=== PATIENT | female | born 1940 | race Caucasian/White ===

== ENCOUNTER 2023-08-13 11:41 | Outpatient (OUT) | payer MEDICARE, SELFPAY ==
--- NOTE | 2023-08-13 11:52 | XR_ITS ---
[facility] [place] [id number] Patient Name: JESSICA SANCHEZ MRN: [id number] date: 1940 Sex: F Assigned Patient Location: [facility] Current Patient Location: [facility] Accession/Order Number: [id number] Exam Date: 08/13/2023 12:01 Report Date: 08/13/2023 18:20 At the request of: MARYAM ALEJANDRA Procedure: XR shoulder LB min 2V EXAM: XR shoulder LB min 2V HISTORY: Nevus D22.9 COMPARISON: None. TECHNIQUE: 3 views of the right shoulder and 3 views of the left shoulder were obtained. FINDINGS: There is a background of osteopenia. There is no radiographic evidence of acute fracture or subluxation. Bilateral joint space narrowing with marginal spurring is seen at the acromioclavicular and glenohumeral joints. There is a background of emphysematous changes in the lungs. XR/XR shoulder LB min 2V IMPRESSION: 1. No acute fracture or subluxation. 2. 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 3. Background of emphysematous changes. Electronically authenticated by: ECTOR BOONE Date: 08/13/2023 18:20
== END 2023-08-13 11:42 | disposition home or self-care (01) ==
LOC: RAD 11:45
PROVIDERS: PCP Family Medicine; Visit Provider Family Medicine
DX: D22.9 Melanocytic nevi, unspecified (principal)
CPT/HCPCS: 73030

== ENCOUNTER 2023-08-21 05:34 | Emergency (ER) | payer MEDICARE, SELFPAY ==
[2023-08-21 05:39] VITALS: BP 131/96; PULSE 94; RESP 16; TEMP 36.8; O2SAT 96; BMI 24.6
--- NOTE | 2023-08-21 05:56 | ED_ITS ---
HPI - General Adult General Chief complaint: Weakness Stated complaint: body pain Time Seen by Provider: 08/21/23 05:43 Source: patient Mode of arrival: walk-in History of Present Illness HPI narrative: 82-year-old female presents for generalized body pains. She hasn't had a fever or cough and it's been continuous and started on approximately August 11, about ten days ago. There was no injury. It started in her arms and now her whole body hurts. She saw her doctor who put on diclofenac but it didn't really help and she stopped it and she started taking ibuprofen again. She had not been on any new medications before this started. Related Data Home Medications Medication Instructions Recorded Confirmed diclofenac sodium 75 mg 75 mg PO BID PRN pain 08/21/23 08/21/23 tablet,delayed release Previous Rx's Medication Instructions Recorded acetaminophen 300 mg-codeine 30 mg 1 tab PO Q6H PRN pain 3 days #10 08/21/23 tablet tabs Allergies Allergy/AdvReac Type Severity Reaction Status Date / Time No Known Drug Allergies Allergy Verified 08/21/23 05:44 Review of Systems ROS Narrative A ten point review of systems is negative except as noted above. [facility] Medical History (Updated 08/21/23 @ 06:48 by Sunday Wu MD) Body aches ?R52 - Pain, unspecified (ICD-10) Exam Narrative Exam Narrative: Nurses note and vital signs reviewed and patient is not hypoxic. General: The patient appears well and in no apparent distress. Patient is resting comfortably on cart. Skin: Warm, dry, no pallor noted. There is no rash noted. Head: Normocephalic, atraumatic Eye: Normal conjunctiva, no drainage Ears, Nose, Mouth, and Throat: oral mucosa is moist. Nares patent. Mouth without vesicles. Ear canals patent. Tm's without Erythema Cardiovascular: Regular Rate and Rhythm Respiratory: Patient is in no distress, no accessory muscle use, lungs are clear to auscultation, no wheezing, rales or rhonchi Back: non-tender GI: soft and nontender Musculoskeletal: all joints have full range of motion Neurological: A&O, normal speech Psychiatric: Cooperative Constitutional Vital Signs, click to edit/add: Last Vital Signs Temp 98.3 F 08/21/23 05:39 Pulse 94 H 08/21/23 05:39 Resp 16 08/21/23 05:39 BP 131/96 H 08/21/23 05:39 Pulse Ox 96 08/21/23 05:39 O2 Del Method Room Air 08/21/23 06:03 Course Vital Signs Vital signs: Vital Signs Temperature 98.3 F 08/21/23 05:39 Pulse Rate 94 H 08/21/23 05:39 Respiratory Rate 16 08/21/23 05:39 Blood Pressure 131/96 H 08/21/23 05:39 Pulse Oximetry 96 08/21/23 05:39 Oxygen Delivery Method Room Air 08/21/23 05:39 Temperature 98.3 F 08/21/23 05:39 Pulse Rate 94 H 08/21/23 05:39 Respiratory Rate 16 08/21/23 05:39 Blood Pressure 131/96 H 08/21/23 05:39 Pulse Oximetry 96 08/21/23 05:39 Oxygen Delivery Method Room Air 08/21/23 06:03 Medical Decision Making MDM Narrative Medical decision making narrative: Laboratory analysis is negative and she'll be treated symptomatically. Treatment diagnosis and follow-up were discussed with the patient. Differential Diagnosis Differential Diagnosis: myalgia, arthralgia Lab Data Lab results reviewed: Yes I reviewed the patient's lab results Labs: Lab Results 08/21/23 Range/Units 06:09 WBC 9.9 (4.0-11.0) 10^3/uL RBC 4.51 (4.20-5.40) 10^6/uL Hgb 12.9 (12.0-16.0) g/dL Hct 42.3 (36.0-48.0) % MCV 93.8 (81.0-99.0) fL MCH 28.6 (26.7-34.0) pg MCHC 30.5 (29.9-35.2) g/dL RDW 14.1 (11.0-15.0) % Plt Count 343 (150-450) 10^3/uL MPV 10.2 (9.5-13.5) fL Neut % (Auto) 64.5 (43.0-75.0) % Lymph % (Auto) 24.8 (20.5-60.0) % [place] % (Auto) 7.7 (1.7-12.0) % Eos % (Auto) 2.0 (0.9-7.0) % Baso % (Auto) 0.6 (0.2-2.0) % Neut # (Auto) 6.4 (1.4-6.5) 10^3/uL Lymph # (Auto) 2.5 (1.2-3.8) 10^3/uL [place] # (Auto) 0.8 (0.3-0.8) 10^3/uL Eos # (Auto) 0.2 (0.0-0.7) 10^3/uL Baso # (Auto) 0.1 (0.0-0.1) 10^3/uL Abs Immat Gran (auto) 0.04 H (0.00-0.03) 10^3/uL Imm/Tot Granulo (auto) 0.4 (0.0-0.5) % Sodium 139 (136-145) mmol/L Potassium 4.1 (3.5-5.1) mmol/L Chloride 104 (98-107) mmol/L Carbon Dioxide 26.3 (21.0-32.0) mmol/L Anion Gap 12.8 BUN 16.0 (7.0-18.0) mg/dL Creatinine 0.76 (0.55-1.02) mg/dL Est GFR ( Amer) >60 (>=60) Est GFR (Non-Af Amer) >60 (>=60) BUN/Creatinine Ratio 21.1 Glucose 135 H (74-106) mg/dL Calcium 9.2 (8.5-10.1) mg/dL Myoglobin 39 (9-82) ng/mL Discharge Plan Discharge Chief Complaint: Weakness Clinical Impression: Myalgia Patient Disposition: Home, Self-Care Time of Disposition Decision: 06:48 Condition: Good Mode of Transportation: Private Vehicle Prescriptions / Home Meds: New acetaminophen-codeine 300-30 mg tablet 1 tab PO Q6H PRN (Reason: pain) 3 Days Qty: 10 0RF No Action diclofenac sodium 75 mg tablet,delayed release (DR/EC) 75 mg PO BID PRN (Reason: pain) Instructions: Musculoskeletal Pain (ED) Stand Alone Forms: Portal Instructions Referrals: Barry Valerio MD [Primary Care Provider] - 1 week
--- NOTE | 2023-08-21 06:03 | PC.NURSE ---
pt c/o all over body pain, reports that DR Valerio has been working with her on this but pain is getting worse and is unable to wait until appt on with DR Valerio. Pt ambulated to room 1 in ER slow and steady this moring.
[2023-08-21 06:21] LABS: Basophils Absolute Auto 0.1 10^3/uL (0.0-0.1); Basophils Percent Auto 0.6 % (0.2-2.0); Eosinophils Absolute Auto 0.2 10^3/uL (0.0-0.7); Hematocrit 42.3 % (36.0-48.0); Hemoglobin 12.9 g/dL (12.0-16.0); Immature Granulocytes Abs Auto 0.04 10^3/uL (0.00-0.03); Immature Granulocytes Pct Auto 0.4 % (0.0-0.5); Lymphocytes Absolute Auto 2.5 10^3/uL (1.2-3.8); Lymphocytes Percent Auto 24.8 % (20.5-60.0); Mean Corpuscular HGB Conc 30.5 g/dL (29.9-35.2); Mean Corpuscular Hemoglobin 28.6 pg (26.7-34.0); Mean Corpuscular Volume 93.8 fL (81.0-99.0); Mean Platelet Volume 10.2 fL (9.5-13.5); Monocytes Absolute Auto 0.8 10^3/uL (0.3-0.8); Monocytes Percent Auto 7.7 % (1.7-12.0); Neutrophils Absolute Auto 6.4 10^3/uL (1.4-6.5); Neutrophils Percent Auto 64.5 % (43.0-75.0); Platelet Count 343 10^3/uL (150-450); Red Blood Count 4.51 10^6/uL (4.20-5.40); Red Cell Distribution Width 14.1 % (11.0-15.0); White Blood Count 9.9 10^3/uL (4.0-11.0)
[2023-08-21 06:37] LABS: Anion Gap 12.8; BUN Creatinine Ratio 21.1; Calcium 9.2 mg/dL (8.5-10.1); Carbon Dioxide 26.3 mmol/L (21.0-32.0); Chloride 104 mmol/L (98-107); Estimated GFR (African America >60 (>=60); Estimated GFR (Non-African Ame >60 (>=60); Glucose 135 mg/dL (74-106); Myoglobin 39 ng/mL (9-82); Potassium 4.1 mmol/L (3.5-5.1); Sodium 139 mmol/L (136-145)
[2023-08-21] MEDS: KETOROLAC TROMETHAMINE 60 MG/2 ML VIAL IM (06:54)
== END 2023-08-21 07:02 | disposition home or self-care (01) ==
PROVIDERS: Emergency Provider Emergency Medicine; PCP Family Medicine
DX: M79.10 Myalgia, unspecified site (principal)
CPT/HCPCS: 36415; 80048; 83874; 85025; 96372; 99284

== ENCOUNTER 2023-10-27 08:21 | Emergency (ER) | payer MEDICARE, SELFPAY ==
--- OUTSIDE RECORDS SUMMARY | 2023-10-27 08:26 | XMS_ITS | CCD ---
Author Name Unknown Address [address] [place] [address] Organization [facility] Care Team Providers Care Validation Manager Name Role Phone [place] ., DR FRANCISCO Primary Care Unavailable RAYSHAWN, DR RM Consulting Unavailable RAYSHAWN, DR RM Admitting Unavailable RAYSHAWN, DR RM Attending Unavailable MCRAEWALTER Consulting Unavailable HOY ., DR FRANCISCO Admitting Unavailable HOY ., DR FRANCISCO Attending Unavailable HOY ., DR FRANCISCO Primary Care Unavailable HOY ., DR FRANCISCO Consulting Unavailable ZIEBABBI, DR SAGE Benz Consulting Unavailable HOY ., DR FRANCISCO Admitting Unavailable HOY ., DR FRANCISCO Attending Unavailable HOY ., DR FRANCISCO Primary Care Unavailable HOY ., DR FRANCISCO Consulting Unavailable ZIEBER, DR SAGE Benz Consulting Unavailable Allergies Allergy Classification Reported Allergen(s) Allergy Type Date of Onset Reaction(s) Facility (1 source) Caffeine Drug Allergy 11-19-2016 [facility] Repository Problems Active Problems Problem Classification Problem Date Documented Date Episodic/Chronic Abdominal pain (1 source) Left lower quadrant pain; Translations: [LEFT LOWER QUADRANT PAIN] Onset: 11-16-2022 Episodic Osteoarthritis (2 sources) Bilateral primary osteoarthritis of hip; Translations: [Primary osteoarthritis, right wrist] Onset: 08-23-2022 Chronic Other non-traumatic joint disorders (4 sources) Pain in left hip; Translations: [PAIN IN LEFT HIP] Onset: 11-08-2022 Episodic Sprains and strains (1 source) Strain of muscle, fascia and tendon of left hip, initial encounter; Translations: [STRAIN MUSC FASC TENDON LT HIP INIT] Onset: 11-16-2022 Episodic Unclassified (3 sources) LOW BACK PAIN, UNSPECIFIED; Translations: [LOW BACK PAIN, UNSPECIFIED] Onset: 11-22-2022 Past or Other Problems Problem Classification Problem Date Documented Da te Episodic/Chronic Cancer of breast (1 source) Personal history of malignant neoplasm of breast; Translations: [PERS HX MALIGNANT NEOPLASM BREAST] Onset: 08-23-2022 Episodic Other circulatory disease (1 source) Personal history of transient ischemic attack (TIA), and cerebral infarction without residual deficits; Translations: [PERS HX TIA AND CI NO RESID DEFICIT] Onset: 08-23-2022 Episodic Other non-traumatic joint disorders (3 sources) Pain in right wrist; Translations: [PAIN IN RIGHT WRIST] Onset: 08-22-2022 Episodic Unclassified (1 source) LOW BACK PAIN, UNSPECIFIED; Translations: [LOW BACK PAIN, UNSPECIFIED] Onset: 11-19-2022 Results Test Name Value Interpretation Reference Range Facil ity MRI LSPINE WO CONon 11-20-19 MRI LSPINE WO CON EXAMINATION: MRI LSPINE WO CON HISTORY: Low back pain COMPARISON: No relevant comparison available. TECHNIQUE: A variety of imaging planes and parameters were utilized for visualization of suspected pathology. FINDINGS: For the purposes of numbering, sagittal T2 image # 8 extends from the T10-T11 vertebral body superiorly to the S3 level inferiorly. PARASPINAL AREA: Normal with no visible mass. BONES: Mild edema within within superior endplate of L2 suspicious for mild acute compression fracture. Mild loss of height of L3 without marrow edema suggesting remote compression fracture. Mild grade 1 retrolisthesis of T12-L1. Minimal grade 1 anterior listhesis of L4 on 5. CORD/CAUDA EQUINA: Normal caliber, contour, and signal intensity. DISC LEVELS: 12-L1: T11 and T12 mild diffuse disc bulging and mild facet arthropathy. Causing mild central canal and mild bilateral foramen narrowing. T12-L1 moderate diffuse disc bulging causing moderate central canal and bilateral foramen narrowing. Mild degenerative facet arthropathy. L1-L2: Mild foramen narrowing bilaterally without significant central canal narrowing. Mild diffuse disc bulging without disc at reduction. Mild degenerative facet arthropathy bilaterally. L2-L3: Mild foramen narrowing bilaterally without significant central canal narrowing. Mild diffuse disc bulging without disc height reduction. Mild degenerative facet arthropathy, right greater than left. L3-L4: Mild central canal and bilateral foramen narrowing. Mild diffuse disc bulging without disc height reduction. Moderate degenerative facet arthropathy bilaterally. L4-L5: Mild central canal and bilateral foramen narrowing. Minimal grade 1 anterolisthesis of L4-L5. Mild diffuse disc bulging and mild disc height reduction. Moderate degenerative facet arthropathy bilaterally. Possible mild impingement of the descending L5 nerve roots bilaterally between the mildly bulging disc and hypertrophied facet joints. L5-S1: Moderate foramen narrowing bilaterally without significant central canal narrowing. Moderate diffuse disc bulging and moderate disc height reduction. Marked degenerative facet arthropathy bilaterally. IMPRESSION: 1. Multilevel mild to moderate degenerative changes, greatest at L4-L5 and L5-S1 which may contribute to patient's symptoms. 2. Suspect acute to subacute mild compression fracture involving superior endplate of L2. Remote mild compression fracture of L3. Electronically authenticated by: SAGE LOPEZ Date: 2022-11-19 09:58 Normal [facility] XR ABD FLAT UP_PA Julita 11-08 XR ABD FLAT UP_PA CH EXAMINATION: XR ABD FLAT UP_PA CH HISTORY: Left lower quadrant pain , constipation COMPARISON: No relevant comparison available. FINDINGS: LUNGS: Hyperexpanded lungs. Mild haziness and stranding within medial left lung base. MEDIASTINUM: Prominent ascending and descending thoracic aorta. BOWEL GAS PATTERN: Non-obstructed. FREE AIR: None. CALCIFICATIONS: None significant. BONES: No fracture or visible bone lesion. OTHER: Negative. IMPRESSION: 1. Hyperexpanded lungs suggestive COPD. Suspect mild atelectasis or infiltrates within medial left lung base. 2. 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 3. Normal bowel gas pattern. No obstruction. Moderate stool burden. Electronically authenticated by: SAGE LOPEZ Date: 2022-11-08 12:23 Normal [facility] XR LSPINE MIN 4 VIEWSon 10-24 XR LSPINE MIN 4 VIEWS EXAMINATION: XR LSPINE MIN 4 VIEWS HISTORY: Pain of left hip joint ; chronic back and hip pain COMPARISON: XR L-spine 07/14/2019 FINDINGS: BONES: Mild anterior wedging of L3 vertebral body. Mild grade 1 retrolisthesis of L1 on 2. Moderate degenerative facet arthropathy L3-4 through L5-S1. DISC SPACES: Moderate narrowing L4-5, L5-S1. PARASPINOUS: Negative. No paraspinous abnormality is seen. OTHER: Negative. IMPRESSION: 1. L3 mild compression fracture; progressed since 07/14/2019. 2. Multilevel-marked moderate degenerative changes of lumbar spine; grossly stable. Electronically authenticated by: SAGE LOPEZ Date: 2022-11-08 12:21 Normal [facility] XR WRIST RT MIN 3 Von 2021 XR WRIST RT MIN 3 V EXAM: XR WRIST RT MIN 3 V HISTORY: Wrist joint pain COMPARISON: None. TECHNIQUE: 3 views of the right wrist. FINDINGS: Bones are osteopenic. The distal radius and ulna appear preserved. Metacarpal alignment appears maintained. Soft tissue calcifications are seen at the ulnocarpal joint suggesting CPPD. There is prominent joint space narrowing and marginal spur at the thumb CMC joint and to a lesser extent the triscaphe joint. Mild soft tissue swelling of the wrist. No radiopaque foreign bodies are identified. IMPRESSION: 1. Soft tissue swelling. No acute fracture identified. 2. Prominent osteoarthritis most pronounced at the thumb CMC joint. 3. CPPD. Electronically authenticated by: WALTER MCRAE Date: 2022-08-22 11:25 Normal [facility] Encounters Encounter Date Encounter Type Care Provider Facility Start: 11-19-2022 End: 11-20-[address] MARYAM ALEJANDRA . Facility: Start: 11-08-2022 End: 11-09-[address] MARYAM ALEJANDRA . Facility: Start: 08-22-2022 End: 08-22-[address] MARYAM ALEJANDRA . Facility: Payers Date Payer Category Payer Medicare [id number] 1958 Unknown [id number] 1940 Unknown [id number] [id number] [id number] 1940 Unknown [id number] [id number] [id number] 1940 Unknown [id number] [id number] [id number] Clinical Note 11-08-2022 Note Date & Type Note Facility 11-08-2022 Note PROCEDURE: XR HIPS B IL 5V W PELVIS HISTORY: Bilateral hip joint pain COMPARISON: None. FINDINGS: BONES:Small degenerative osteophytes along the superior rim of the acetabulum and articular margins of the femoral heads. No significant joint space narrowing. No fracture, dislocation, or bone lesion. SOFT TISSUES:No visible soft tissue swelling. EFFUSION:None visible. OTHER: Negative. IMPRESSION: 1. Mild degenerative joint disease of the hips bilaterally. Electronically authenticated by: SAGE LOPEZ Date: 2022-11-08 12:19 [facility] Summary Purpose Family History No Family History Records Found Advance Directives No Advanced Directives Records Found Additional Source Comments INFORMATION SOURCE (unrecogn ized section and content) DATE CREATED AUTHOR 11/27/2022 [facility] FOR RECORDS PERTAINING TO PATIENTS WHO ARE OR HAVE BEEN ENROLLED IN A CHEMICAL DEPENDENCY/SUBSTANCEABUSE PROGRAM, SOME INFORMATION MAY BE OMITTED. This clinical summary was aggregated from multiple sources. Caution should be exercised in using it in the provision of clinical care. This summary normalizes information from multiple sources, and as a consequence, information in this document may materially change the coding, format and clinical context of patient data. In addition, data may be omitted in some cases. CLINICAL DECISIONS SHOULD BE BASED ON THE PRIMARY CLINICAL RECORDS. [employer] [facility]. provides no warranty or guarantee of the accuracy or completeness of information in this document.
[2023-10-27 08:33] VITALS: BP 159/98; PULSE 101; RESP 15; TEMP 36.6; O2SAT 98; BMI 21.6
--- NOTE | 2023-10-27 08:53 | ED.MEDCLEAR1 ---
HPI - Medical Clearance General Chief complaint: Medical Clearance Stated complaint: PAIN ALL OVER Time Seen by Provider: 10/27/23 08:46 Source: patient and family Mode of arrival: walk-in Limitations: no limitations History of Present Illness HPI Narrative: This patient is here complaining of multiple aches and pains but specifically in her right biceps and shoulder area as well as her left hand. Then she tells me that her whole body hurts especially in her hips especially when she walks. She is under the care of a local primary doctor and has been on prednisone. She finished her prescription and ran out several days ago and has not gotten a refill yet. Now over the last couple days since she stopped taking her prednisone she is getting much worse. She does not know if she has had any type of SERJIO or rheumatology lab test done. She has not seen a director instrumentation. She does not have any pain in her knees ankles or feet. Most of pain is in her left hand wrist and right biceps area. Related Information Home Medications Medication Instructions Recorded Confirmed ibuprofen 200 mg PO PRN pain (scale score 10/27/23 4-6) Previous Rx's Medication Instructions Recorded acetaminophen 300 mg-codeine 30 mg 1 tab PO Q6H PRN pain 3 days #10 08/21/23 tablet tabs Allergies Allergy/AdvReac Type Severity Reaction Status Date / Time No Known Drug Allergies Allergy Verified 08/21/23 05:44 [facility] Medical History (Updated 10/27/23 @ 09:46 by Nic Hinton MD) Body aches ?R52 - Pain, unspecified (ICD-10) Exam Narrative Exam Narrative: Patient's vital signs are noted. She does not appear toxic or ill but does have discomfort. Again most of her discomfort is over in the right lower shoulder mid biceps area and also her left hand. Skin is warm and dry there is no evidence of pallor rash or vesicles. Patient has marked discomfort at elevation above her right shoulder. Does have some tenderness over the anterior joint. Also has discomfort over her right biceps area but there is no edema, lymphangitis and cellulitis. Her pulses to the distal extremity are normal I do not see evidence of vascular ischemia. She does not have any discomfort with passive or active range of motion of the elbow or the wrist. This is on the right side. On her left side she has some swelling and redness and classic osteoarthritic type findings of her MCP and PIP joints. Does not have any muscle aches and pains on the entire left upper extremity. Pulses are normal. Her lower extremities do not have any muscle pain or joint pain to the knee and ankle or the foot. She has no respiratory complaints no chest pain shortness of breath. Constitutional Vital Signs, click to edit/add: Last Vital Signs Temp 98 F 10/27/23 08:33 Pulse 101 H 10/27/23 08:33 Resp 15 10/27/23 08:33 BP 159/98 H 10/27/23 08:33 Pulse Ox 98 10/27/23 08:33 O2 Del Method Room Air 10/27/23 08:33 Course Vital Signs Vital signs: Vital Signs Temperature 98 F 10/27/23 08:33 Pulse Rate 101 H 10/27/23 08:33 Respiratory Rate 15 10/27/23 08:33 Blood Pressure 159/98 H 10/27/23 08:33 Pulse Oximetry 98 10/27/23 08:33 Oxygen Delivery Method Room Air 10/27/23 08:33 Temperature 98 F 10/27/23 08:33 Pulse Rate 101 H 10/27/23 08:33 Respiratory Rate 15 10/27/23 08:33 Blood Pressure 159/98 H 10/27/23 08:33 Pulse Oximetry 98 10/27/23 08:33 Oxygen Delivery Method Room Air 10/27/23 08:33 MDM - Medical Clearance MDM Narrative Medical decision making narrative: I have reviewed this patient's chart and she really has not had any inflammatory markers done. Her symptoms are rather complex and may involve several diagnoses. Her arthritic pain in her left wrist weeks suggest an inflammatory process and then her right shoulder discomfort and into the biceps might be consistent with a rotator cuff injury as she really does not have joint pain on that right side. The fact is, after stopping her prednisone her symptoms of gotten much worse. I have done some screening lab and in fact her sedimentation rate CRP are both elevated. SERJIO profile will be done. Recommendation at this time will to be start a burst of the steroids titrate back down to 10 mg a day Lab Data Labs: Lab Results 10/27/23 Range/Units 09:13 WBC 9.4 (4.0-11.0) 10^3/uL RBC 4.69 (4.20-5.40) 10^6/uL Hgb 13.5 (12.0-16.0) g/dL Hct 43.4 (36.0-48.0) % MCV 92.5 (81.0-99.0) fL MCH 28.8 (26.7-34.0) pg MCHC 31.1 (29.9-35.2) g/dL RDW 16.0 H (11.0-15.0) % Plt Count 363 (150-450) 10^3/uL MPV 9.0 L (9.5-13.5) fL Neut % (Auto) 73.6 (43.0-75.0) % Lymph % (Auto) 15.2 L (20.5-60.0) % [place] % (Auto) 7.2 (1.7-12.0) % Eos % (Auto) 2.4 (0.9-7.0) % Baso % (Auto) 0.6 (0.2-2.0) % Neut # (Auto) 6.9 H (1.4-6.5) 10^3/uL Lymph # (Auto) 1.4 (1.2-3.8) 10^3/uL [place] # (Auto) 0.7 (0.3-0.8) 10^3/uL Eos # (Auto) 0.2 (0.0-0.7) 10^3/uL Baso # (Auto) 0.1 (0.0-0.1) 10^3/uL Abs Immat Gran (auto) 0.09 H (0.00-0.03) 10^3/uL Imm/Tot Granulo (auto) 1.0 H (0.0-0.5) % ESR 47 H (<=30) mm/hr C-Reactive Protein 1.61 H (<=0.50) mg/dL Discharge Plan Discharge Chief Complaint: Medical Clearance Clinical Impression: Myalgia Patient Disposition: Home, Self-Care Time of Disposition Decision: 09:46 Prescriptions / Home Meds: No Action acetaminophen-codeine 300-30 mg tablet 1 tab PO Q6H PRN (Reason: pain) 3 Days Qty: 10 0RF ibuprofen 200 mg PO PRN (Reason: pain (scale score 4-6)) Additional Instructions: Restart the steroids with initial burst as discussed. Follow-up with Dr. Mccullough for evaluation of your shoulder, then consider rheumatology but your family doctor can help arrange these as needed Referrals: Barry Valerio MD [Primary Care Provider] - 1 week Stand Alone Forms: Portal Instructions
[2023-10-27 09:23] LABS: Basophils Absolute Auto 0.1 10^3/uL (0.0-0.1); Basophils Percent Auto 0.6 % (0.2-2.0); Eosinophils Absolute Auto 0.2 10^3/uL (0.0-0.7); Eosinophils Percent Auto 2.4 % (0.9-7.0); Hematocrit 43.4 % (36.0-48.0); Hemoglobin 13.5 g/dL (12.0-16.0); Immature Granulocytes Abs Auto 0.09 10^3/uL (0.00-0.03); Lymphocytes Absolute Auto 1.4 10^3/uL (1.2-3.8); Lymphocytes Percent Auto 15.2 % (20.5-60.0); Mean Corpuscular HGB Conc 31.1 g/dL (29.9-35.2); Mean Corpuscular Hemoglobin 28.8 pg (26.7-34.0); Mean Corpuscular Volume 92.5 fL (81.0-99.0); Monocytes Absolute Auto 0.7 10^3/uL (0.3-0.8); Monocytes Percent Auto 7.2 % (1.7-12.0); Neutrophils Absolute Auto 6.9 10^3/uL (1.4-6.5); Neutrophils Percent Auto 73.6 % (43.0-75.0); Platelet Count 363 10^3/uL (150-450); Red Blood Count 4.69 10^6/uL (4.20-5.40); White Blood Count 9.4 10^3/uL (4.0-11.0)
[2023-10-27 09:29] LABS: C Reactive Protein 1.61 mg/dL (<=0.50)
[2023-10-27 09:30] LABS: Erythrocyte Sedimentation Rate 47 mm/hr (<=30)
[2023-10-29 11:09] LABS: ANA Direct Negative (Negative)
== END 2023-10-27 10:04 | disposition home or self-care (01) ==
PROVIDERS: Emergency Provider Emergency Medicine Emergency Medical Services; PCP Family Medicine
DX: M79.10 Myalgia, unspecified site (principal)
CPT/HCPCS: 36415; 85025; 85652; 86038; 86140; 99283

== ENCOUNTER 2024-03-22 09:01 | Emergency (ER) | payer MEDICARE, SELFPAY ==
[2024-03-22 09:07] VITALS: BP 113/69; PULSE 80; TEMP 36.6; O2SAT 97; BMI 21.1
--- OUTSIDE RECORDS SUMMARY | 2024-03-22 09:09 | XMS_ITS ---
Patient Summarization (C-CDA 2.1 CCD) Created on: March 22, 2024 JESSICA SANCHEZ : 1940 Sex: Female Author Organization Sample organization Care Team Providers Care Topographical Field Assistant Name Role Phone [place] ., DR FRANCISCO Primary Care Unavailable RAYSHAWN, DR RM Consulting Unavailable RAYSHAWN, DR RM Admitting Unavailable RAYSHAWN, DR RM Attending Unavailable MCRAE, WALTER Consulting Unavailable HOY ., DR FRANCISCO Admitting Unavailable HOY ., DR FRANCISCO Attending Unavailable HOY ., DR FRANCISCO Primary Care Unavailable HOY ., DR FRANCISCO Consulting Unavailable ZIEBER, DR SAGE Benz Consulting Unavailable HOY ., DR FRANCISCO Admitting Unavailable HOY ., DR FRANCISCO Attending Unavailable HOY ., DR FRANCISCO Primary Care Unavailable HOY ., DR FRANCISCO Consulting Unavailable ZIEBER, DR SAGE Benz Consulting Unavailable Allergies Allergy Classification Reported Allergen(s) Allergy Type Date of Onset Reaction(s) Facility (1 source) Caffeine Drug Allergy 11-19-2016 [facility] Repository Encounters Encounter Date Encounter Type Care Provider Facility Start: 11-19-2022 End: 11-20-[address] MARYAM ALEJANDRA . Facility: Start: 11-08-2022 End: 11-09-[address] MARYAM AELJANDRA . Facility: Start: 08-22-2022 End: 08-22-[address] MARYAM ALEJANDRA . Facility:H1 Payers Date Payer Category Payer Medicare [id number] 1958 Unknown [id number] 1940 Unknown [id number] 2.16.84 [id number] 1940 Unknown [id number] 2.16.84 [id number] 1940 Unknown [id number] 2.16.84 [id number] Problems Active Problems Problem Classification Problem Date [...] by: SAGE LOPEZ Date: 2022-11-19 09:58 Normal [facility] XR ABD FLAT UP_PA Julita 11-08 XR [...] SAGE LOPEZ Date: 2022-11-08 12:23 Normal [facility] XR LSPINE MIN 4 VIEWSon 10-24 XR [...] by: SAGE LOPEZ Date: 2022-11-08 12:21 Normal [facility] XR WRIST RT MIN 3 Von 2021 [...] by: WALTER MCRAE Date: 2022-08-22 11:25 Normal [facility] Clinical Note 11-08-2022 Note Date & Type [...] by: SAGE LOPEZ Date: 2022-11-08 12:19 [facility] Summary Purpose Family History No Family History Records Found Advance Directives No Advanced Directives Records Found Additional Source Comments INFORMATION SOURCE (unrecogn ized section and content) DATE CREATED AUTHOR 11/27/2022 [facility] FOR RECORDS PERTAINING TO PATIENTS WHO ARE [...] BE BASED ON THE PRIMARY CLINICAL RECORDS. [employer]. provides no warranty or guarantee of the accuracy or completeness of information in this document.
--- NOTE | 2024-03-22 09:17 | ED.GENADUL1 ---
HPI HPI - General Adult General Chief complaint: Upper Respiratory Infection Stated complaint: WEAKNESS Time Seen by Provider: 03/22/24 09:11 Source: patient and family Mode of arrival: walk-in Limitations: no limitations History of Present Illness HPI narrative: 83-year-old female presents to the emergency department for fatigue. It began yesterday. She states she slept on and off all day. She states that she does not really have a cough but she always has sinus drainage and that is no different. No vomiting or known fever. She lives by herself. Related Data Previous Rx's ?Medication ?Instructions ?Recorded cephalexin 500 mg capsule 500 mg PO TID 7 days #21 caps 03/22/24 Allergies Allergy/AdvReac Type Severity Reaction Status Date / Time No Known Drug Allergies Allergy Verified 08/21/23 05:44 Opioid HPI Opioid Management Most Recent Opioid Data: Last Pain Scale 8 10/27/23 08:33 Review of Systems ROS Narrative A ten point review of systems is negative except as noted above. [facility] Medical History (Updated 03/22/24 @ 11:55 by Sunday Wu MD) Body aches ?R52 - Pain, unspecified (ICD-10) Exam Narrative Exam Narrative: Nurses note and vital signs reviewed and patient is not hypoxic. General: The patient appears well and in no apparent distress. Patient is resting comfortably on cart. Skin: Warm, dry, no pallor noted. There is no rash noted. Head: Normocephalic, atraumatic Eye: Normal conjunctiva, no drainage Ears, Nose, Mouth, and Throat: oral mucosa is moist. Nares patent. Cardiovascular: Regular Rate and Rhythm, not tachycardic Respiratory: Patient is in no distress, no accessory muscle use, lungs are clear to auscultation, no wheezing, rales or rhonchi Back: non-tender GI: Soft and nontender Musculoskeletal: The patient has no evidence of calf tenderness, no pitting edema, symmetrical pulses noted bilaterally Neurological: A&O, normal speech Psychiatric: Cooperative Constitutional Vital Signs, click to edit/add: Last Vital Signs Temp 97.8 F 03/22/24 09:07 Pulse 80 03/22/24 09:07 Resp 18 03/22/24 09:07 BP 113/69 03/22/24 09:07 Pulse Ox 98 03/22/24 09:39 O2 Del Method Room Air 03/22/24 09:39 Course Vital Signs Vital signs: Vital Signs Temperature 97.8 F 03/22/24 09:07 Pulse Rate 80 03/22/24 09:07 Respiratory Rate 18 03/22/24 09:07 Blood Pressure 113/69 03/22/24 09:07 Pulse Oximetry 97 03/22/24 09:07 Oxygen Delivery Method Room Air 03/22/24 09:07 Temperature 97.8 F 03/22/24 09:07 Pulse Rate 80 03/22/24 09:07 Respiratory Rate 18 03/22/24 09:07 Blood Pressure 113/69 03/22/24 09:07 Pulse Oximetry 98 03/22/24 09:39 Oxygen Delivery Method Room Air 03/22/24 09:39 Medical Decision Making MDM Narrative Medical decision making narrative: UTI is identified. COVID testing is negative and blood work is negative. She is prescribed Keflex. Treatment diagnosis and follow-up were discussed with the patient and her family. Differential Diagnosis Differential Diagnosis: COVID, UTI, dehydration Lab Data Lab results reviewed: Yes I reviewed the patient's lab results Labs: Lab Results 03/22/24 03/22/24 03/22/24 Range/Units 09:28 09:32 11:05 WBC 9.7 (4.0-11.0) 10^3/uL RBC 4.66 (4.20-5.40) 10^6/uL Hgb 13.9 (12.0-16.0) g/dL Hct 44.6 (36.0-48.0) % MCV 95.7 (81.0-99.0) fL MCH 29.8 (26.7-34.0) pg MCHC 31.2 (29.9-35.2) g/dL RDW 14.2 (11.0-15.0) % Plt Count 270 (150-450) 10^3/uL MPV 9.5 (9.5-13.5) fL Neut % (Auto) 81.5 H (43.0-75.0) % Lymph % (Auto) 9.6 L (20.5-60.0) % Hand % (Auto) 5.8 (1.7-12.0) % Eos % (Auto) 2.0 (0.9-7.0) % Baso % (Auto) 0.4 (0.2-2.0) % Neut # (Auto) 7.9 H (1.4-6.5) 10^3/uL Lymph # (Auto) 0.9 L (1.2-3.8) 10^3/uL Hand # (Auto) 0.6 (0.3-0.8) 10^3/uL Eos # (Auto) 0.2 (0.0-0.7) 10^3/uL Baso # (Auto) 0.0 (0.0-0.1) 10^3/uL Abs Immat Gran (auto) 0.07 H (0.00-0.03) 10^3/uL Imm/Tot Granulo (auto) 0.7 H (0.0-0.5) % Sodium 140 (136-145) mmol/L Potassium 3.8 (3.5-5.1) mmol/L Chloride 103 (98-107) mmol/L Carbon Dioxide 25.1 (21.0-32.0) mmol/L Anion Gap 15.7 BUN 16.0 (7.0-18.0) mg/dL Creatinine 0.79 (0.55-1.02) mg/dL Est GFR ( Amer) >60 (>=60) Est GFR (Non-Af Amer) >60 (>=60) BUN/Creatinine Ratio 20.3 Glucose 145 H (74-106) mg/dL Calcium 9.1 (8.5-10.1) mg/dL Urine Color Yellow (YELLOW) Urine Clarity Clear (CLEAR) Urine pH 6.0 (5.0-9.0) Ur Specific [place] >=1.030 A (1.005-1.025) Urine Protein Trace (NEG/TRACE) mg/dL Urine Glucose (UA) Negative (NEGATIVE) mg/dL Urine Ketones 15 A (NEGATIVE) mg/dL Urine Occult Blood Negative (NEGATIVE) Urine Nitrite Negative (NEGATIVE) Urine Bilirubin Small A (NEGATIVE) Urine Urobilinogen 1.0 (0.2-1.0) EU/dL Ur Leukocyte Esterase Moderate A (NEGATIVE) Urine RBC 0-2 (0-2) #/HPF Urine WBC 10-20 A (NONE SEEN) #/HPF Ur Squamous Epith Cells Many A (NONE/RARE) #/LPF Urine Crystals None seen (None Seen) #/HPF Urine Bacteria Moderate A (NONE SEEN) #/HPF Urine Casts Seen A (NONE SEEN) #/LPF Hyaline Casts Moderate Urine Mucus Moderate A (NONE SEEN) SARS-CoV-2 Ag (CV2AG) Negative (NEGATIVE) Discharge Plan Discharge Stand Alone Forms: Portal Instructions Chief Complaint: Upper Respiratory Infection Clinical Impression: Urinary tract infection Patient Disposition: Home, Self-Care Time of Disposition Decision: 11:55 Condition: Good Mode of Transportation: Private Vehicle Prescriptions / Home Meds: New cephalexin 500 mg capsule 500 mg PO TID 7 Days Qty: 21 0RF Print Language: Occitan Instructions: Urinary Tract Infection in Older Adults (ED) Referrals: Barry Valerio MD [Primary Care Provider] - 1 week
[2024-03-22 09:39] VITALS: O2SAT 98
[2024-03-22 09:48] LABS: Basophils Percent Auto 0.4 % (0.2-2.0); Eosinophils Absolute Auto 0.2 10^3/uL (0.0-0.7); Hematocrit 44.6 % (36.0-48.0); Hemoglobin 13.9 g/dL (12.0-16.0); Immature Granulocytes Abs Auto 0.07 10^3/uL (0.00-0.03); Immature Granulocytes Pct Auto 0.7 % (0.0-0.5); Lymphocytes Absolute Auto 0.9 10^3/uL (1.2-3.8); Lymphocytes Percent Auto 9.6 % (20.5-60.0); Mean Corpuscular HGB Conc 31.2 g/dL (29.9-35.2); Mean Corpuscular Hemoglobin 29.8 pg (26.7-34.0); Mean Corpuscular Volume 95.7 fL (81.0-99.0); Mean Platelet Volume 9.5 fL (9.5-13.5); Monocytes Absolute Auto 0.6 10^3/uL (0.3-0.8); Monocytes Percent Auto 5.8 % (1.7-12.0); Neutrophils Absolute Auto 7.9 10^3/uL (1.4-6.5); Neutrophils Percent Auto 81.5 % (43.0-75.0); Platelet Count 270 10^3/uL (150-450); Red Blood Count 4.66 10^6/uL (4.20-5.40); Red Cell Distribution Width 14.2 % (11.0-15.0); White Blood Count 9.7 10^3/uL (4.0-11.0)
[2024-03-22 10:00] LABS: Internal Control Within Normal Limits; SARS-CoV-2 Ag NEGATIVE (NEGATIVE)
[2024-03-22 10:05] LABS: Anion Gap 15.7; BUN Creatinine Ratio 20.3; Calcium 9.1 mg/dL (8.5-10.1); Carbon Dioxide 25.1 mmol/L (21.0-32.0); Chloride 103 mmol/L (98-107); Estimated GFR (African America >60 (>=60); Estimated GFR (Non-African Ame >60 (>=60); Glucose 145 mg/dL (74-106); Potassium 3.8 mmol/L (3.5-5.1); Sodium 140 mmol/L (136-145)
[2024-03-22 11:27] LABS: Bilirubin Urine SMALL (NEGATIVE); Blood Urine NEGATIVE (NEGATIVE); Clarity Urine CLEAR (CLEAR); Color Urine YELLOW (YELLOW); Glucose Urine UA NEGATIVE (NEGATIVE); Ketones Urine 15 mg/dL (NEGATIVE); Leukocyte Esterase Urine MODERATE (NEGATIVE); Nitrite Urine NEGATIVE (NEGATIVE); Protein Urine TRACE mg/dL (NEG/TRACE); Specific Gravity Urine >=1.030 (1.005-1.025)
[2024-03-22 11:46] LABS: Bacteria Urine MODERATE #/HPF (NONE SEEN); Cast Seen? SEEN #/LPF (NONE SEEN); Crystals Seen? None Seen #/HPF (None Seen); Mucus Urine MODERATE (NONE SEEN); RBC Urine 0-2 #/HPF (0-2); Squamous Epithelial Cell Urine MANY #/LPF (NONE/RARE)
[2024-03-22 11:47] LABS: Hyaline Casts Urine MODERATE
[2024-03-22 12:15] VITALS: BP 112/74; PULSE 64; O2SAT 99
== END 2024-03-22 12:16 | disposition home or self-care (01) ==
PROVIDERS: Emergency Provider Emergency Medicine; PCP Family Medicine
DX: N39.0 Urinary tract infection, site not specified (principal); Z20.822 Contact with and (suspected) exposure to COVID-19
CPT/HCPCS: 36415; 80048; 81001; 85025; 87811; 99283

== ENCOUNTER 2024-05-07 01:09 | Observation (INO) | payer MEDICARE, SELFPAY ==
[2024-05-07] VITALS (49 sets, daily range): BP systolic 94–138; BP diastolic 58–78; PULSE 74–115; TEMP 36.1–37.1; O2SAT 91–98; BMI 22.3; BMI 21.5
--- NOTE | 2024-05-07 01:20 | ECG_ITS ---
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
--- OUTSIDE RECORDS SUMMARY | 2024-05-07 01:24 | XMS_ITS | CCD ---
Author Organization [facility] Care Team Providers Care Entry Level Accountant Name Role Phone [place] ., DR FRANCISCO [...] (1 source) Caffeine Drug Allergy 11-19-2016 [facility] Repository Problems Active Problems Problem Classification [...] Facil ity MRI LSPINE WO CONon 11-20-19 23 MRI LSPINE WO CON EXAMINATION: MRI LSPINE [...] by: SAGE LOPEZ Date: 2022-11-19 09:58 Normal [facility] XR ABD FLAT UP_PA Julita [...] by: SAGE LOPEZ Date: 2022-11-08 12:23 Normal [facility] XR LSPINE MIN 4 VIEWSon [...] by: SAGE LOPEZ Date: 2022-11-08 12:21 Normal [facility] XR WRIST RT MIN 3 Von 12-28- 2022 XR WRIST RT MIN 3 V EXAM: [...] by: WALTER MCRAE Date: 2022-08-22 11:25 Normal [facility] Encounters Encounter Date Encounter Type Care Provider Facility Start: 11-19-2022 End: 11-20-[address] MARYAM ALEJANDRA . Facility: Start: 11-08-2022 End: 11-09-[address] MARYAM ALEJANDRA . Facility: Start: 08-22-2022 End: 08-22-[address] MARYAM ALEJANDRA . Facility: Payers Date Payer Category Payer Medicare [id number] 1958 Unknown [id number] 1940 Unknown [id number] 2.16.84 [id number] 1940 Unknown [id number] [id number] [id number] 1940 Unknown [id number] [id number] [id number] Clinical Note 11-08-2022 Note Date & Type [...] by: SAGE LOPEZ Date: 2022-11-08 12:19 [facility] Summary Purpose Family History No Family History Records Found Advance Directives No Advanced Directives Records Found Additional Source Comments INFORMATION SOURCE (unrecogn ized section and content) DATE CREATED AUTHOR 11/27/2022 [facility] FOR RECORDS PERTAINING TO PATIENTS WHO ARE [...] BE BASED ON THE PRIMARY CLINICAL RECORDS. [employer] [facility]. provides no warranty or guarantee of the accuracy or completeness of information in this document.
--- NOTE | 2024-05-07 01:40 | ED.CHESTPAI1 ---
HPI - Chest Pain General Chief Complaint: Chest Pain Stated Complaint: CHEST PAIN/BACK PAIN Time Seen by Provider: 05/07/24 01:36 Source: patient Mode of arrival: Wheelchair Limitations: no limitations History of Present Illness HPI narrative: patient presents complaining of chest pain that started about 3 hours ago. Pain radiates into her back. dry heaving earlier. No fever or dyspnea Related Data Home Medications ?Medication ?Instructions ?Recorded ?Confirmed No Known Home Medications 05/07/24 05/07/24 Allergies Allergy/AdvReac Type Severity Reaction Status Date / Time No Known Drug Allergies Allergy Verified 08/21/23 05:44 Review of Systems ROS Status of ROS 10 or more systems reviewed and unremarkable except as noted in history and below [facility] Medical History Stroke ?I63.9 - Cerebral infarction, unspecified (ICD-10) Breast cancer ?C50.919 - Malignant neoplasm of unspecified site of unspecified female breast (ICD-10) Body aches ?R52 - Pain, unspecified (ICD-10) Family History Father Family history of CHF (congestive heart failure) Family history of myocardial infarction Social History Within the past year, how often did you have a drink containing alcohol: monthly or less Within the past year, how many standard drinks containing alcohol did you have on a typical day: 1 or 2 Within the past year, how often did you have six or more drinks on one occasion: never Total score: 0 Score interpretation: A score less than 3 is consistent with normal alcohol consumption. Smoking status: Never smoker Non-prescribed substance use: denies use Highest level of school completed/degree received: 8th grade Are you now , , , , never or living with a partner: In a typical week, how many times do you talk on the telephone with family, friends, or neighbors: 3 or more times per week How often do you get together with friends or relatives: 3 or more times per week How often do you attend alevism or mandaeism services: 4 or more times per year Do you belong to any clubs or organizations such as alevism groups unions, [employer] or athletic groups, or school groups: yes Total score: 3 Score interpretation: A score of greater than or equal to 2 indicates the lowest level of social isolation. Little interest or pleasure in doing things: not at all Feeling down, depressed, or hopeless: not at all Feel stressed/tense/nervous/anxious/difficulty sleeping: not at all Exam Constitutional Vital Signs, click to edit/add: Last Vital Signs Temp 98.8 F 05/07/24 23:37 Pulse 80 05/08/24 01:54 Resp 18 05/07/24 23:37 BP 112/66 05/07/24 23:37 Pulse Ox 92 L 05/07/24 23:37 O2 Del Method Room Air 05/07/24 23:37 Common normals: no apparent distress, average body habitus, oriented x3, no limitations, healthy appearing, alert and well nourished Eye Common normals: EOMs intact bilaterally and conjunctivae normal Chest Other: left chest wall is tender Respiratory Common normals: normal respiratory effort, no retractions and no use of accessory muscles Cardio Common normals: regular rate, regular rhythm and S1 normal heart sound GI Other: epigastric tenderness. no guarding Extremity Common normals: normal to inspection and full ROM Neuro Common normals: oriented x3, CN's II-XII intact bilaterally, moves all extremities and no focal motor deficits Course Vital Signs Vital signs: Vital Signs Temperature 97.5 F L 05/07/24 01:14 Pulse Rate 83 05/07/24 01:14 Respiratory Rate 16 05/07/24 01:14 Blood Pressure 138/78 05/07/24 01:14 Pulse Oximetry 98 05/07/24 01:14 Oxygen Delivery Method Room Air 05/07/24 01:14 Temperature 98.8 F 05/07/24 23:37 Pulse Rate 80 05/08/24 01:54 Respiratory Rate 18 05/07/24 23:37 Blood Pressure 112/66 05/07/24 23:37 Pulse Oximetry 92 L 05/07/24 23:37 Oxygen Delivery Method Room Air 05/07/24 23:37 MDM - Chest Pain MDM Narrative Medical decision making narrative: patient presents with acute onset of chest pain radiating into her back. dimer positive . CTA chest without PE but did note cardiomegaly-mild- and mild pulmonary vascular congestion. 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 Serial troponin neg x 2. Patient currently asymptomatic. Bhanu Valerio paged for admission Lab Data Labs: Lab Results 05/07/24 05/07/24 Range/Units 01:20 04:54 WBC 12.2 H (4.0-11.0) 10^3/uL RBC 4.40 (4.20-5.40) 10^6/uL Hgb 13.1 (12.0-16.0) g/dL Hct 41.7 (36.0-48.0) % MCV 94.8 (81.0-99.0) fL MCH 29.8 (26.7-34.0) pg MCHC 31.4 (29.9-35.2) g/dL RDW 14.6 (11.0-15.0) % Plt Count 299 (150-450) 10^3/uL MPV 10.0 (9.5-13.5) fL Neut % (Auto) 81.9 H (43.0-75.0) % Lymph % (Auto) 14.4 L (20.5-60.0) % [place] % (Auto) 2.0 (1.7-12.0) % Eos % (Auto) 1.1 (0.9-7.0) % Baso % (Auto) 0.2 (0.2-2.0) % Neut # (Auto) 10.0 H (1.4-6.5) 10^3/uL Lymph # (Auto) 1.8 (1.2-3.8) 10^3/uL [place] # (Auto) 0.3 (0.3-0.8) 10^3/uL Eos # (Auto) 0.1 (0.0-0.7) 10^3/uL Baso # (Auto) 0.0 (0.0-0.1) 10^3/uL Abs Immat Gran (auto) 0.05 H (0.00-0.03) 10^3/uL Imm/Tot Granulo (auto) 0.4 (0.0-0.5) % D-Dimer 1.38 H* (<=0.59) mg/L FEU Sodium 142 (136-145) mmol/L Potassium 3.3 L (3.5-5.1) mmol/L Chloride 104 (98-107) mmol/L Carbon Dioxide 28.3 (21.0-32.0) mmol/L Anion Gap 13.0 BUN 19.0 H (7.0-18.0) mg/dL Creatinine 0.83 (0.55-1.02) mg/dL Est GFR ( Amer) >60 (>=60) Est GFR (Non-Af Amer) >60 (>=60) BUN/Creatinine Ratio 22.9 Glucose 133 H (74-106) mg/dL Lactate 2.2 H* (0.4-2.0) mmol/L Calcium 8.9 (8.5-10.1) mg/dL Magnesium 1.9 (1.8-2.4) mg/dL Total Bilirubin 0.8 (0.2-1.0) mg/dL AST 165 H (15-37) U/L ALT 98 H (14-59) U/L Alkaline Phosphatase 99 (46-116) U/L Troponin I High Sens 10.4 8.2 (4.0-51.3) pg/mL NT-Pro-B Natriuret Pep 448.0 (<=1800.0) pg/mL Total Protein 6.4 (6.4-8.2) g/dL Albumin 3.4 (3.4-5.0) g/dL Globulin 3.0 g/dL Albumin/Globulin Ratio 1.1 Amylase 28 (25-115) U/L Lipase 23.0 (16.0-77.0) U/L TSH & Free T4 Interp 3.612 (0.358-3.740) uIU/mL Discharge Plan Discharge Chief Complaint: Chest Pain Clinical Impression: Chest pain, Congestive heart failure Patient Disposition: Admitted as Observation Discharge Date/Time: 05/07/24 07:50
--- NOTE | 2024-05-07 01:42 | XR_ITS ---
[facility] [place] [id number] Patient Name: JESSIAC SANCHEZ MRN: [id number] date: 1940 Sex: F Assigned Patient Location: ER Current Patient Location: ER Accession/Order Number: [id number] Exam Date: 05/07/2024 02:00 Report Date: 05/07/2024 03:47 At the request of: LIBBY HERZOG Procedure: XR chest 1V EXAM: XR chest 1V HISTORY: chest pain COMPARISON: Chest radiographs dated 05/20/2014. TECHNIQUE: One view of the chest was obtained. FINDINGS: The cardiac silhouette is stable in size. There is left retrocardiac opacification. There is no significant pneumothorax or pleural effusion. No acute osseous abnormality is seen. XR/XR chest 1V IMPRESSION: 1. Left retrocardiac opacification that could represent atelectasis, aspiration changes, and/or pneumonia. Electronically authenticated by: Jolene PITTMAN Date: 05/07/2024 03:47
[2024-05-07 01:50] LABS: Basophils Percent Auto 0.2 % (0.2-2.0); Eosinophils Absolute Auto 0.1 10^3/uL (0.0-0.7); Eosinophils Percent Auto 1.1 % (0.9-7.0); Hematocrit 41.7 % (36.0-48.0); Hemoglobin 13.1 g/dL (12.0-16.0); Immature Granulocytes Abs Auto 0.05 10^3/uL (0.00-0.03); Immature Granulocytes Pct Auto 0.4 % (0.0-0.5); Lymphocytes Absolute Auto 1.8 10^3/uL (1.2-3.8); Lymphocytes Percent Auto 14.4 % (20.5-60.0); Mean Corpuscular HGB Conc 31.4 g/dL (29.9-35.2); Mean Corpuscular Hemoglobin 29.8 pg (26.7-34.0); Mean Corpuscular Volume 94.8 fL (81.0-99.0); Monocytes Absolute Auto 0.3 10^3/uL (0.3-0.8); Neutrophils Percent Auto 81.9 % (43.0-75.0); Platelet Count 299 10^3/uL (150-450); Red Cell Distribution Width 14.6 % (11.0-15.0); White Blood Count 12.2 10^3/uL (4.0-11.0)
[2024-05-07] MEDS: ONDANSETRON PF 4 MG/2 ML VIAL IV (01:50)
[2024-05-07] MEDS: MORPHINE SULFATE 4 MG/ML VIAL IV (01:50)
[2024-05-07 02:04] LABS: Alanine Aminotransferase 98 U/L (14-59); Albumin Globulin Ratio 1.1; Albumin Level 3.4 g/dL (3.4-5.0); Alkaline Phosphatase 99 U/L (46-116); Aspartate Amino Transferase 165 U/L (15-37); BUN Creatinine Ratio 22.9; Bilirubin Total 0.8 mg/dL (0.2-1.0); Calcium 8.9 mg/dL (8.5-10.1); Carbon Dioxide 28.3 mmol/L (21.0-32.0); Chloride 104 mmol/L (98-107); Estimated GFR (African America >60 (>=60); Estimated GFR (Non-African Ame >60 (>=60); Glucose 133 mg/dL (74-106); Potassium 3.3 mmol/L (3.5-5.1); Sodium 142 mmol/L (136-145); Total Protein 6.4 g/dL (6.4-8.2)
[2024-05-07 02:06] LABS: Troponin I High Sensitivity 10.4 pg/mL (4.0-51.3)
[2024-05-07 02:08] LABS: D Dimer 1.38 mg/L FEU (<=0.59)
--- NOTE | 2024-05-07 02:14 | CT_ITS ---
[address] [address] Patient Name: JESSICA SANCHEZ MRN: [id number] date: 1940 Sex: F Assigned Patient Location: ER Current Patient Location: Accession/Order Number: [id number] Exam Date: 05/07/2024 02:40 Report Date: 05/07/2024 04:19 At the request of: LIBBY HERZOG Procedure: CT angio chest EXAM: CTA chest, abdomen and pelvis with contrast HISTORY: Chest and abdomen pain. elevated dimer COMPARISON: None. TECHNIQUE: Nonionic contrast given IV as per protocol at institution. Following contrast, contiguous thin section axial scans obtained contiguously from the thoracic inlet through the skull tuberosities. Coronal and sagittal reformatted images obtained. A separate workstation, coronal and sagittal MIP images of chest, abdomen and pelvis obtained along with 3-D reconstructions of the thoracoabdominal aorta and neck arteries. Dose reduction techniques were achieved by using automated exposure control and/or adjustment of mA and/or kV according to patient size and/or use of iterative reconstruction technique. CTA CHEST FINDINGS: The thoracic aorta is normal in course and caliber. No dissection or aneurysm. Cardiac chambers are mildly enlarged. No pericardial fluid. Normal enhancement of the pulmonary arteries. No evidence of PE. No mediastinal or hilar lymphadenopathy. Normal GE junction. There is borderline mild pulmonary venous congestion with mild interstitial prominence of lungs could reflect mild CHF. No focal consolidation, pneumothorax or pleural effusion. No mass or nodule. Osseous structures are intact and unremarkable. No thoracic fractures. Age-related osseous demineralization. No axillary adenopathy. CTA ABDOMEN AND PELVIC FINDINGS: The lower thoracic and abdominal aorta and iliac arteries are normal in caliber. No dissection or aneurysm. There is some mild tortuosity of the infrarenal abdominal aorta. Minimal atherosclerotic calcific plaque within the bilateral common iliac arteries and left internal iliac artery and at takeoff of the left renal artery. Both renal arteries are widely patent without stenosis. 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 No obvious calcification within the wall of the vessel. Distal vessel is patent. SMA and ALLY are widely patent without stenosis. During the arterial phase of imaging the liver, spleen, pancreas, adrenals and left kidney are normal. There is a simple lower pole right renal cyst measuring 2.5 x 2.3 cm with mean attenuation values less than 18 Hounsfield units. Right kidney otherwise negative. No right or left hydronephrosis. Normal normal caliber bowel loops. Normal small bowel loops without enteritis or obstruction. Colonic diverticulosis without colitis. Moderate stool burden rectosigmoid. There is some fluid within the large bowel in the right. Urinary bladder is unremarkable. Reproductive organs are unremarkable for age. No mass or adenopathy. No free air. No ascites. No loculated fluid. No mesenteric inflammation. Osteoporosis. No fractures. Severe bilateral lower lumbar spine facet arthropathy. Chronic compression fracture of L3. Old superior endplate compression fracture of L4 as well as L2 and L1. No acute fractures. Grade 1 anterolisthesis of L4 on L5 from facet arthropathy. No spondylolysis. CT/CT angio chest IMPRESSION: 1. No dissection or aneurysm of the thoracoabdominal aorta or iliac arteries. Tortuosity of the abdominal aorta. 2. Mild cardiac enlargement with mild pulmonary venous congestion and interstitial edema suggesting CHF. 3. 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 Normal enhancement of distal vessels. 4. Negative for acute PE. 5. No acute abdominal or pelvic findings. 6. Additional nonspecific and chronic changes and findings as discussed above. This report was generated with voice recognition software. Effort has been made to ensure accuracy of this report, however, occasional wording errors may persist. Please contact our office with any questions. Electronically authenticated by: VIRA GORDON Date: 05/07/2024 04:19
--- NOTE | 2024-05-07 02:14 | CT_ITS ---
[address] [address] Patient Name: JESSICA SANCHEZ MRN: [id number] date: 1940 Sex: F Assigned Patient Location: ER Current Patient Location: Accession/Order Number: [id number] Exam Date: 05/07/2024 02:40 Report Date: 05/07/2024 04:19 At the request of: LIBBY HERZOG Procedure: CT abdomen pelvis w con EXAM: CTA chest, abdomen and pelvis with contrast HISTORY: Chest and abdomen pain. elevated dimer COMPARISON: None. TECHNIQUE: Nonionic contrast given IV as per protocol at institution. Following contrast, contiguous thin section axial scans obtained contiguously from the thoracic inlet through the skull tuberosities. Coronal and sagittal reformatted images obtained. A separate workstation, coronal and sagittal MIP images of chest, abdomen and pelvis obtained along with 3-D reconstructions of the thoracoabdominal aorta and neck arteries. Dose reduction techniques were achieved by using automated exposure control and/or adjustment of mA and/or kV according to patient size and/or use of iterative reconstruction technique. CTA CHEST FINDINGS: The thoracic aorta is normal in course and caliber. No dissection or aneurysm. Cardiac chambers are mildly enlarged. No pericardial fluid. Normal enhancement of the pulmonary arteries. No evidence of PE. No mediastinal or hilar lymphadenopathy. Normal GE junction. There is borderline mild pulmonary venous congestion with mild interstitial prominence of lungs could reflect mild CHF. No focal consolidation, pneumothorax or pleural effusion. No mass or nodule. Osseous structures are intact and unremarkable. No thoracic fractures. Age-related osseous demineralization. No axillary adenopathy. CTA ABDOMEN AND PELVIC FINDINGS: The lower thoracic and abdominal aorta and iliac arteries are normal in caliber. No dissection or aneurysm. There is some mild tortuosity of the infrarenal abdominal aorta. Minimal atherosclerotic calcific plaque within the bilateral common iliac arteries and left internal iliac artery and at takeoff of the left renal artery. Both renal arteries are widely patent without stenosis. 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 No obvious calcification within the wall of the vessel. Distal vessel is patent. SMA and ALLY are widely patent without stenosis. During the arterial phase of imaging the liver, spleen, pancreas, adrenals and left kidney are normal. There is a simple lower pole right renal cyst measuring 2.5 x 2.3 cm with mean attenuation values less than 18 Hounsfield units. Right kidney otherwise negative. No right or left hydronephrosis. Normal normal caliber bowel loops. Normal small bowel loops without enteritis or obstruction. Colonic diverticulosis without colitis. Moderate stool burden rectosigmoid. There is some fluid within the large bowel in the right. Urinary bladder is unremarkable. Reproductive organs are unremarkable for age. No mass or adenopathy. No free air. No ascites. No loculated fluid. No mesenteric inflammation. Osteoporosis. No fractures. Severe bilateral lower lumbar spine facet arthropathy. Chronic compression fracture of L3. Old superior endplate compression fracture of L4 as well as L2 and L1. No acute fractures. Grade 1 anterolisthesis of L4 on L5 from facet arthropathy. No spondylolysis. CT/CT abdomen pelvis w con IMPRESSION: 1. No dissection or aneurysm of the thoracoabdominal aorta or iliac arteries. Tortuosity of the abdominal aorta. 2. Mild cardiac enlargement with mild pulmonary venous congestion and interstitial edema suggesting CHF. 3. 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 Normal enhancement of distal vessels. 4. Negative for acute PE. 5. No acute abdominal or pelvic findings. 6. Additional nonspecific and chronic changes and findings as discussed above. This report was generated with voice recognition software. Effort has been made to ensure accuracy of this report, however, occasional wording errors may persist. Please contact our office with any questions. Electronically authenticated by: VIRA GORDON Date: 05/07/2024 04:19
[2024-05-07 05:17] LABS: Troponin I High Sensitivity 8.2 pg/mL (4.0-51.3)
[2024-05-07 07:36] LABS: Amylase 28 U/L (25-115)
[2024-05-07 07:47] LABS: Magnesium 1.9 mg/dL (1.8-2.4)
[2024-05-07 07:48] LABS: Lactate/Lactic Acid 2.2 mmol/L (0.4-2.0); TSH W/ REFLEX FT4 3.612 uIU/mL (0.358-3.740)
--- NOTE | 2024-05-07 08:00 | P.HP_ITS ---
HPI H&P: HPI History of Present Illness Chief complaint: CHEST PAIN/BACK PAIN/CHF Narrative: Patient presented to the emergency room with acute onset of pressure type of chest pain lower chest. Seemed resolved in ER. Workup in ER was unremarkable in terms of the troponins. Testing did suggest possible pneumonia, she does have a positive lactate and leukocytosis. Patient mated for workup and treatment of same when I saw patient up on the medical surgical floor, she was resting comfortably in bed, very talkative, slight cough during the evaluation. No significant conversational dyspnea. Her chest pain has resolved. No diaphoresis when she did have the chest pain. Denies fevers. Does describe some pain with urination. Urinalysis is pending Opioid HPI Opioid Management Most Recent Pain and Opioid Data: Last Pain Scale 8 10/27/23 08:33 Last Pain Assessment 05/07/24 12:00 Last ORT Total Score 0 05/07/24 08:00 Last ORT Risk Category Low Risk 05/07/24 08:00 PFSH PFSH Medical History Stroke ?I63.9 - Cerebral infarction, unspecified (ICD-10) Breast cancer ?C50.919 - Malignant neoplasm of unspecified site of unspecified female breast (ICD-10) Body aches ?R52 - Pain, unspecified (ICD-10) Family History Father Family history of CHF (congestive heart failure) Family history of myocardial infarction Social History Within the past year, how often did you have a drink containing alcohol: monthly or less Within the past year, how many standard drinks containing alcohol did you have on a typical day: 1 or 2 Within the past year, how often did you have six or more drinks on one occasion: never Total score: 0 Score interpretation: A score less than 3 is consistent with normal alcohol consumption. Smoking status: Never smoker Non-prescribed substance use: denies use Highest level of school completed/degree received: 8th grade Are you now , , , , never or living with a partner: In a typical week, how many times do you talk on the telephone with family, friends, or neighbors: 3 or more times per week How often do you get together with friends or relatives: 3 or more times per week How often do you attend religion or worship services: 4 or more times per year Do you belong to any clubs or organizations such as religion groups unions, fraternal or athletic groups, or school groups: yes Total score: 3 Score interpretation: A score of greater than or equal to 2 indicates the lowest level of social isolation. Little interest or pleasure in doing things: not at all Feeling down, depressed, or hopeless: not at all Feel stressed/tense/nervous/anxious/difficulty sleeping: not at all Meds Home Medications and Allergies Home Medications ?Medication ?Instructions ?Recorded ?Confirmed ?Type No Known Home Medications 05/07/24 05/07/24 History Allergies Allergy/AdvReac Type Severity Reaction Status Date / Time No Known Drug Allergies Allergy Verified 08/21/23 05:44 Exam Constitutional Vital Signs, click to edit/add: Last Vital Signs Temp 97.6 F 05/07/24 07:48 Pulse 91 H 05/07/24 07:48 Resp 16 05/07/24 07:48 BP 108/60 05/07/24 07:48 Pulse Ox 96 05/07/24 07:48 O2 Del Method Room Air 05/07/24 07:48 Documenting provider has reviewed patient's vital signs: yes Common normals: no apparent distress Chest Common normals: inspection of chest normal and palpation of chest normal Respiratory Common normals: normal respiratory effort Auscultation: rhonchi; no egophony Cardio Common normals: regular rate and regular rhythm Extremity Common normals: normal to inspection, full ROM, no calf tenderness and no pedal edema Results Labs Labs: Short CBC 05/07/24 Range/Units 01:20 WBC 12.2 H (4.0-11.0) 10^3/uL Hgb 13.1 (12.0-16.0) g/dL Hct 41.7 (36.0-48.0) % Plt Count 299 (150-450) 10^3/uL BMP 05/07/24 01:20 Sodium 142 Potassium 3.3 L Chloride 104 Carbon Dioxide 28.3 BUN 19.0 H Creatinine 0.83 Glucose 133 H Calcium 8.9 Liver Function 05/07/24 Range/Units 01:20 Total Bilirubin 0.8 (0.2-1.0) mg/dL AST 165 H (15-37) U/L ALT 98 H (14-59) U/L Alkaline Phosphatase 99 (46-116) U/L Albumin 3.4 (3.4-5.0) g/dL Assessment and Plan Assessment and Plan (1) Congestive heart failure: (2) Chest pain: (3) Urinary tract infection: Plan * Admission findings: Chest pain-patient mid to rule out [place], review of labs did show positive lactate, leukocytosis and elevated liver function test with hypokalemia. Chest pain-check echocardiogram, add aspirin today, Dysuria-possible acute UTI-check urinalysis Chest x-ray consistent with possible early pneumonia patient does have a cough and a positive lactate with elevated white blood cell count, start patient on IV antibiotics Elevated liver function test-patient without significant abdominal tenderness, will follow-up with patient History remotely of his CVA. Does not take any medications currently. Will start aspirin today Admission status: Patient with chest pain, does have positive lactate and possible pneumonia with elevated white blood cell count, but medically necessary treatment likely will only span 1 midnight. Observation status.
--- NOTE | 2024-05-07 08:04 | CA_ITS ---
Patient Name: JESSICA SANCHEZ MR#: [id number] : 1940 Exam Date: 05/07/2024 Ordering Doctor: DR Barry Valerio . ECHOCARDIOGRAM REPORT PROCEDURE: CA ECHO DOPPLER COMPLETE INDICATIONS: Dyspnea, congestive heart failure COMPARISON: None. DESCRIPTION: COMPLETE ECHOCARDIOGRAM Real-time transthoracic echocardiography with 2D, M-mode, spectral and color flow Doppler performed. QUALITY: Technical quality was good. LEFT VENTRICLE: Normal chamber size. Mild concentric left ventricular hypertrophy. LV EF: Global left ventricular systolic function is difficult to assess but appears lower normal limits; visually estimated ejection fraction is 50%. Unable to assess regional wall motion abnormalities. Suggest contrast study for better delineation of endocardial borders. DIASTOLIC: Normal diastolic function. ATRIAL SEPTUM: Inadequately seen. LEFT ATRIUM: Normal chamber size. RIGHT ATRIUM: Normal chamber size. RIGHT VENTRICLE: Normal chamber size. Normal right ventricular systolic function. TRICUSPID VALVE: Normal mobility and thickness. No stenosis with trivial regurgitation. Doppler studies reveal mildly (35-45) elevated right sided pressures. RVSP 38 mmHg MITRAL VALVE: Normal mobility and thickness. No evidence of mitral valve stenosis. There is no mitral annular calcification. No mitral regurgitation. AORTIC VALVE: Normal trileaflet appearance. No visible sclerosis. Normal leaflet mobility. No evidence of aortic valve stenosis. Trivial aortic regurgitation. AORTIC ROOT: Normal diameter and appearance. PULMONIC VALVE: Not well visualized. PERICARDIUM: No evidence of pericardial effusion. IVC: Collapses with inspirations. IVC is mildly dilated. CONCLUSION: 1. Global left ventricular systolic function is difficult to assess but appears lower normal limits; visually estimated ejection fraction is 50% 2. Normal right ventricular size and systolic function 3. Mild left ventricular hypertrophy 4. Valves are poorly seen; no significant valvular abnormalities 5. Mildly elevated right-sided pressures; RVSP 38 mmHg Adult Echocardiography Procedure Report Left Ventricle LVEDD (3.7 - 5.6 cm): 4.22 cm LVESD (2.2 - 4.0 cm): 3.49 cm LVIVS thickness (0.6 - 1.2 cm): 1.11 cm LVPW thickness (0.5 - 1.0 cm): 0.96 cm e': 0.10 m/s E - e': 4.95 LVOT Max Gradient: 1.80 mm[Hg] LVOT Area (cm2): 0.67 m/s Peak Velocity (LVOT): 0.67 m/s Mean Velocity (LVOT): 0.42 m/s LVOT Diameter 2.51 cm Left Atrium LA Volume Index (2D A2C): 22.88 ml/m2 Left Atrium Systolic Dimension: 2.46 cm Mitral Valve MV E to A Ratio: 0.64 Mitral Valve A-Wave Peak Velocity: 0.79 m/s Mitral Valve E-Wave Peak Velocity: 0.51 m/s Right Ventricle Aorta AO Root Diam: 3.36 cm Aortic Valve AoV Area (Peak Walter): 3.24 cm2, 3.24 cm2 AoV Area (VTI): 3.37 cm2, 3.37 cm2 Peak Velocity(Antegrade Flow): 1.02 m/s Peak Gradient(Antegrade Flow): 4.20 mm[Hg] Mean Velocity(Antegrade Flow): 0.63 m/s Mean Gradient(Antegrade Flow): 1.92 mm[Hg] Velocity Time Integral: 20.02 cm Tricuspid Valve Peak Velocity (Regurgitant Flow): 2.72 m/s Pulmonic Valve Peak Velocity: 0.54 m/s Peak Gradient: 1.16 mm[Hg] Right Atrium Right Atrium Systolic Pressure: 43.14 ml, 43.14 ml Dictated by: Bhavik Henriquez M.D. on 05/07/2024 at 14:54 Approved by: Bhavik Henriquez M.D. on 05/07/2024 at 14:57
--- OUTSIDE RECORDS SUMMARY | 2024-05-07 08:15 | XMS_ITS | CCD ---
Author Organization [facility] Care Team Providers Care Tram Inspector Name Role Phone [place] ., DR FRANCISCO [...] (1 source) Caffeine Drug Allergy 11-19-2016 [facility] Repository Problems Active Problems Problem Classification [...] by: SAGE LOPEZ Date: 2022-11-19 09:58 Normal [facility] XR ABD FLAT UP_PA Julita 11-08 [...] by: SAGE LOPEZ Date: 2022-11-08 12:23 Normal [facility] XR LSPINE MIN 4 VIEWSon 10-24 [...] by: SAGE LOPEZ Date: 2022-11-08 12:21 Normal [facility] XR WRIST RT MIN 3 Von 12-28- [...] by: WALTER MCRAE Date: 2022-08-22 11:25 Normal [facility] Encounters Encounter Date Encounter Type Care Provider Facility Start: 11-19-2022 End: 11-20-[address] MARYAM ALEJANDRA . Facility: Start: 11-08-2022 End: 11-09-[address] MARYAM ALEJANDRA . Facility: Start: 08-22-2022 End: 08-22-[address] MARYAM ALEJANDRA . Facility: Payers Date Payer Category Payer Medicare [id number] 1958 Unknown [id number] 1940 Unknown [id number] 2.16.84 [id number] 1940 Unknown [id number] 2.16.84 [id number] 1940 Unknown [id number] [id number] [id number] Clinical Note 11-08-2022 Note Date & Type [...] by: SAGE LOPEZ Date: 2022-11-08 12:19 [facility] Summary Purpose Family History No Family History Records Found Advance Directives No Advanced Directives Records Found Additional Source Comments INFORMATION SOURCE (unrecogn ized section and content) DATE CREATED AUTHOR 11/27/2022 [facility] FOR RECORDS PERTAINING TO PATIENTS WHO [...] BE BASED ON THE PRIMARY CLINICAL RECORDS. [facility]. provides no warranty or guarantee of the accuracy or completeness of information in this document.
[2024-05-07 08:30] LABS: Lactate/Lactic Acid 2.5 mmol/L (0.4-2.0)
[2024-05-07] MEDS: 0.9 % SODIUM CHLORIDE 250 ML 10 ML IV (10:27)
[2024-05-07] MEDS: LEVOFLOXACIN IN DEXTROSE 5 % 750 MG/150 ML PREMIX 100 MG IV (10:27)
[2024-05-07] MEDS: POTASSIUM CHLORIDE 10 MEQ ER TABLET 20 MEQ PO ×2 (10:27→21:13)
[2024-05-07] MEDS: ASPIRIN 81 MG TABLET.DR PO (10:28)
[2024-05-07 10:45] LABS: Bilirubin Urine SMALL (NEGATIVE); Blood Urine NEGATIVE (NEGATIVE); Clarity Urine CLEAR (CLEAR); Color Urine DK. ORANGE (YELLOW); Glucose Urine UA 100 mg/dL (NEGATIVE); Ketones Urine NEGATIVE (NEGATIVE); Leukocyte Esterase Urine NEGATIVE (NEGATIVE); Nitrite Urine NEGATIVE (NEGATIVE); Protein Urine TRACE mg/dL (NEG/TRACE); Urobilinogen Urine >=8.0 EU/dL (0.2-1.0)
[2024-05-07 11:12] LABS: Bacteria Urine NONE SEEN #/HPF (NONE SEEN); Mucus Urine NONE SEEN (NONE SEEN); RBC Urine NONE SEEN #/HPF (0-2); WBC Urine NONE SEEN #/HPF (NONE SEEN)
[2024-05-07 11:13] LABS: Squamous Epithelial Cell Urine FEW #/LPF (NONE/RARE); Urine Culture Indicated ALREADY ORDERED
[2024-05-07 11:27] LABS: Lactate/Lactic Acid 1.6 mmol/L (0.4-2.0)
--- NOTE | 2024-05-07 11:35 | SWNOTE1 ---
SW attempted to see pt, but was having a procedure done. SW to stop back later today.
--- NOTE | 2024-05-07 13:05 | SWNOTE1 ---
SW met with pt to discuss dc needs. Pt lives at home alone. Pt is very independent. Pt drives, grocery shops, goes up and down stairs, does laundry, etc. Pt has no concerns about discharge and no anticipated discharge needs. SW to follow as needed. Medicare Outpatient Observation Notice reviewed and discussed with patient. Pt. verbalized understanding and signed the form. Original given to patient and copy placed in patient?s chart.
[2024-05-07] MEDS: HYOSCYAMINE SULFATE 0.125 MG TAB.SUBL SL (18:08)
[2024-05-07] MEDS: ACETAMINOPHEN 500 MG TABLET 1000 MG PO (21:16)
[2024-05-08] VITALS (8 sets, daily range): BP systolic 105–114; BP diastolic 64–70; PULSE 80–101; TEMP 36.6–36.7; O2SAT 93–94
[2024-05-08 06:24] LABS: Basophils Percent Auto 0.3 % (0.2-2.0); Eosinophils Absolute Auto 0.6 10^3/uL (0.0-0.7); Hematocrit 38.7 % (36.0-48.0); Hemoglobin 12.2 g/dL (12.0-16.0); Immature Granulocytes Abs Auto 0.06 10^3/uL (0.00-0.03); Immature Granulocytes Pct Auto 0.6 % (0.0-0.5); Lymphocytes Absolute Auto 1.1 10^3/uL (1.2-3.8); Lymphocytes Percent Auto 10.8 % (20.5-60.0); Mean Corpuscular HGB Conc 31.5 g/dL (29.9-35.2); Mean Corpuscular Hemoglobin 30.1 pg (26.7-34.0); Mean Corpuscular Volume 95.6 fL (81.0-99.0); Mean Platelet Volume 9.4 fL (9.5-13.5); Monocytes Absolute Auto 0.7 10^3/uL (0.3-0.8); Monocytes Percent Auto 6.6 % (1.7-12.0); Neutrophils Absolute Auto 7.7 10^3/uL (1.4-6.5); Neutrophils Percent Auto 75.7 % (43.0-75.0); Platelet Count 307 10^3/uL (150-450); Red Blood Count 4.05 10^6/uL (4.20-5.40); Red Cell Distribution Width 14.9 % (11.0-15.0); White Blood Count 10.1 10^3/uL (4.0-11.0)
[2024-05-08 06:39] LABS: Anion Gap 12.1; BUN Creatinine Ratio 14.5; Calcium 9.3 mg/dL (8.5-10.1); Carbon Dioxide 26.3 mmol/L (21.0-32.0); Chloride 108 mmol/L (98-107); Estimated GFR (African America >60 (>=60); Estimated GFR (Non-African Ame >60 (>=60); Glucose 100 mg/dL (74-106); Potassium 4.4 mmol/L (3.5-5.1); Sodium 142 mmol/L (136-145)
--- NOTE | 2024-05-08 07:48 | P.DS_ITS ---
DS: Providers Provider Date of admission: 05/07/24 07:50 Primary care physician: Barry Valerio MD Consults: 05/07/24 08:02 Consult to Pharmacy Routine Consulting Provider: Reason for consultation: Please [place] me when Med Rec is Updated Has provider been notified: No Occupational Therapy Eval and Treat Routine Reason for consultation: Only if needed for Rehab Has provider been notified: No Physical Therapy Eval and Treat Routine Reason for consultation: Eval and Treat Has provider been notified: No DS: Diagnosis Discharge Diagnosis (1) Congestive heart failure: (2) Chest pain: (3) Urinary tract infection: Plan Admission findings: Chest pain-patient mid to rule out [place], review of labs did show positive lactate, leukocytosis and elevated liver function test with hypokalemia. Chest pain-normal echo Dysuria-possible acute UTI-check urinalysis - cx pending Chest x-ray consistent with possible early pneumonia patient does have a cough and a positive lactate with elevated white blood cell count, - improving at dc Elevated liver function test-patient without significant abdominal tenderness, will follow-up with patient History remotely of his CVA. Does not take any medications currently. Will start aspirin today Admission status: Patient with chest pain, does have positive lactate and possible pneumonia with elevated white blood cell count, but medically necessary treatment likely will only span 1 midnight. Observation status. ? DS: Summary Hospital Course Hospital Course: Patient is seen and evaluated in the emergency room with chest pain. Pressure type. Midsternal. No diaphoresis. Some shortness of breath. In ER workup was negative for cardiac etiology, possible pneumonia. Patient was admitted to observation overnight. Her echocardiogram is essentially normal, chest x-ray co nsistent with pneumonia with elevated lactate and elevated white blood cell count, patient was treated with IV antibiotics overnight. She is improved this morning. At this point she feels comfortable with going home. She will see me in the office in 3 days. Medications see list. Will follow-up on cultures on Saturday Time Spent with Patient Time attestation: Total time spent providing and/or coordinating discharge services: Exam Constitutional Vital Signs, click to edit/add: Last Vital Signs Temp 97.9 F 05/08/24 07:32 Pulse 89 05/08/24 07:32 Resp 18 05/08/24 07:32 BP 114/70 05/08/24 07:32 Pulse Ox 93 L 05/08/24 07:32 O2 Del Method Room Air 05/08/24 07:32 Documenting provider has reviewed patient's vital signs: yes Common normals: no apparent distress Respiratory Common normals: normal respiratory effort, no retractions and clear to auscultation bilaterally Cardio Common normals: regular rate and regular rhythm GI Common normals: Normal to inspection, nondistended, normoactive bowel sounds present, soft to palpation and non-tender Extremity Common normals: normal to inspection, full ROM and no clubbing, cyanosis or edema DS: Data Data Completed and Pending Labs on day of discharge: Labs from last 24 hours 05/08/24 05/07/24 05/07/24 05:53 11:02 10:20 WBC 10.1 RBC 4.05 L Hgb 12.2 Hct 38.7 MCV 95.6 MCH 30.1 MCHC 31.5 RDW 14.9 Plt Count 307 MPV 9.4 L Neut % (Auto) 75.7 H Lymph % (Auto) 10.8 L Allen % (Auto) 6.6 Eos % (Auto) 6.0 Baso % (Auto) 0.3 Neut # (Auto) 7.7 H Lymph # (Auto) 1.1 L Allen # (Auto) 0.7 Eos # (Auto) 0.6 Baso # (Auto) 0.0 Abs Immat Gran (auto) 0.06 H Imm/Tot Granulo (auto) 0.6 H Sodium 142 Potassium 4.4 Chloride 108 H Carbon Dioxide 26.3 Anion Gap 12.1 BUN 10.0 Creatinine 0.69 Est GFR ( Amer) >60 Est GFR (Non-Af Amer) >60 BUN/Creatinine Ratio 14.5 Glucose 100 Lactate 1.6 Calcium 9.3 Magnesium NT-Pro-B Natriuret Pep TSH & Free T4 Interp Urine Color Dk. orange Urine Clarity Clear Urine pH 7.0 Ur Specific [place] 1.010 Urine Protein Trace Urine Glucose (UA) 100 A Urine Ketones Negative Urine Occult Blood Negative Urine Nitrite Negative Urine Bilirubin Small A Urine Urobilinogen >=8.0 Ur Leukocyte Esterase Negative Urine RBC None seen Urine WBC None seen Ur Squamous Epith Cells Few A Urine Bacteria None seen Urine Mucus None seen Ur Culture Indicated? Already ordered 05/07/24 05/07/24 08:01 04:54 WBC RBC Hgb Hct MCV MCH MCHC RDW Plt Count MPV Neut % (Auto) Lymph % (Auto) Allen % (Auto) Eos % (Auto) Baso % (Auto) Neut # (Auto) Lymph # (Auto) Allen # (Auto) Eos # (Auto) Baso # (Auto) Abs Immat Gran (auto) Imm/Tot Granulo (auto) Sodium Potassium Chloride Carbon Dioxide Anion Gap BUN Creatinine Est GFR ( Amer) Est GFR (Non-Af Amer) BUN/Creatinine Ratio Glucose Lactate 2.5 H* 2.2 H* Calcium Magnesium 1.9 NT-Pro-B Natriuret Pep 448.0 TSH & Free T4 Interp 3.612 Urine Color Urine Clarity Urine pH Ur Specific [place] Urine Protein Urine Glucose (UA) Urine Ketones Urine Occult Blood Urine Nitrite Urine Bilirubin Urine Urobilinogen Ur Leukocyte Esterase Urine RBC Urine WBC Ur Squamous Epith Cells Urine Bacteria Urine Mucus Ur Culture Indicated? Discharge Plan Discharge Disposition: Home, Self-Care Discharge Medications: New aspirin 81 mg Tablet,Delayed Release (Dr/Ec) 81 mg PO QD Qty: 30 11RF levofloxacin 500 mg tablet 500 mg PO DAILY 7 Days Qty: 7 0RF Print Language: [place] Forms: Portal Instructions
[2024-05-08] MEDS: POTASSIUM CHLORIDE 10 MEQ ER TABLET 20 MEQ PO (08:37)
[2024-05-08] MEDS: ASPIRIN 81 MG TABLET.DR PO (08:37)
--- NOTE | 2024-05-11 10:35 | CM.DCFOLLOWU ---
Person spoke with: patient How are you feeling? well How is your pain? none Did you understand your discharge instructions? yes Do you have any questions about your discharge instructions? no Were you given any prescriptions at discharge? yes Were you able to get your prescriptions filled? yes Do you understand how to take your medications as ordered? yes Do you have any questions about your follow up appointment and do you plan to keep your follow up appointment? no questions, follow up today with Dr. Valerio Is there anything else that you would like to discuss? no Questions/Comments/Concerns/Other: none
== END 2024-05-08 10:32 | disposition home or self-care (01) ==
LOC: ER 07:10 → MS 07:55
PROVIDERS: Admitting Provider Family Medicine; Emergency Provider Internal Medicine; PCP Family Medicine; Visit Provider Family Medicine
DX: R07.9 Chest pain, unspecified (principal); J18.9 Pneumonia, unspecified organism; N39.0 Urinary tract infection, site not specified; R79.89 Other specified abnormal findings of blood chemistry; E87.6 Hypokalemia; I50.9 Heart failure, unspecified; Z86.73 Personal history of transient ischemic attack (TIA), and cerebral infarction without residual deficits; B96.1 Klebsiella pneumoniae [K. pneumoniae] as the cause of diseases classified elsewhere
CPT/HCPCS: 36415; 71045; 71275; 74177; 80048; 80053; 81001; 82150; 83605; 83690; 83735; 83880; 84443; 84484; 85025; 85378; 87086; 87150; 87186; 93005; 93306; 94667; 94668; 94761; 96365; 99285; G0378; J2270; J2405; Q9967

== ENCOUNTER 2024-05-20 12:56 | Inpatient (IN) | payer MEDICARE, SELFPAY ==
[2024-05-20] VITALS (19 sets, daily range): BP systolic 104–128; BP diastolic 63–73; PULSE 80–110; TEMP 36.8–37.2; O2SAT 90–96; BMI 23.8; BMI 22.3
--- OUTSIDE RECORDS SUMMARY | 2024-05-20 13:13 | XMS_ITS | CCD ---
Author Organization [facility] Care Team Providers Care Clinical Allergist Name Role Phone [place] ., DR FRANCISCO [...] (1 source) Caffeine Drug Allergy 11-19-2016 [facility] Repository Problems Active Problems Problem Classification [...] by: SAGE LOPEZ Date: 2022-11-19 09:58 Normal [facility] XR ABD FLAT UP_PA Julita 11-08 [...] by: SAGE LOPEZ Date: 2022-11-08 12:23 Normal [facility] XR LSPINE MIN 4 VIEWSon 10-24 [...] by: SAGE LOPEZ Date: 2022-11-08 12:21 Normal [facility] XR WRIST RT MIN 3 Von [...] by: WALTER MCRAE Date: 2022-08-22 11:25 Normal [facility] Encounters Encounter Date Encounter Type Care Provider Facility Start: 11-19-2022 End: 11-20-[address] MARYAM ALEJANDRA . Facility: Start: 11-08-2022 End: 11-09-[address] MARYAM ALEJANDRA . Facility: Start: 08-22-2022 End: 08-22-[address] MARYAM ALEJANDRA . Facility: Payers Date Payer Category Payer Medicare [id number] 1958 Unknown [id number] 1940 Unknown [id number] 2.16.84 [id number] 1940 Unknown [id number] 2.16.84 [id number] 1940 Unknown [id number] 2.16.84 [id number] Clinical Note 11-08-2022 Note Date & Type [...] by: SAGE LOPEZ Date: 2022-11-08 12:19 [facility] Summary Purpose Family History No Family History Records Found Advance Directives No Advanced Directives Records Found Additional Source Comments INFORMATION SOURCE (unrecogn ized section and content) DATE CREATED AUTHOR 11/27/2022 [facility] FOR RECORDS PERTAINING TO PATIENTS WHO [...] BE BASED ON THE PRIMARY CLINICAL RECORDS. [facility]. provides no warranty or guarantee of the accuracy or completeness of information in this document.
--- NOTE | 2024-05-20 13:14 | ECG_ITS ---
[facility] Test Date: 2024-05-20 Pat Name: JESSICA SANCHEZ Department: Room: - Gender: Female Credit Support Specialist: : 1940 Requested By: MARYAM ALEJANDRA Order Number: [id number] Reading MD: GUS FRANKLIN Measurements Intervals [place] Rate: 98 P: 47 MS: 152 QRS: 17 QRSD: 88 T: 41 QT: 366 QTc: 421 Interpretive Statements 1100 Sinus rhythm 1470 with occasional supraventricular premature complexes 4068 Nonspecific [place] abnormality 9140 abnormal rhythm ECG Compared to ECG 05/07/2024 01:20:46 Ventricular premature complex(es) no longer present Electronically Signed On 05-20-2024 23:02:28 EDT by GUS FRANKLIN
--- NOTE | 2024-05-20 13:16 | ED_ITS ---
HPI HPI - General Adult General Chief complaint: Back Pain/Injury Stated complaint: UPPER BACK PAIN Time Seen by Provider: 05/20/24 13:08 Source: patient Mode of arrival: Wheelchair History of Present Illness HPI narrative: Patient is an 83-year-old female who returns to the emergency department for pain between the scapula. She reports associated epigastric pain. Family member at bedside states that she was fine this morning until she ate. She was seen in this emergency department for the same on 05/07 and was admitted to the hospital for chest pain rule out. At that time she had a CT angio of the chest as well as a CT of the abdomen and pelvis with no significant pathology found. She was not discharged home from the hospital with any medications for pain. She followed up and had an echocardiogram. She did not take any medications for pain today. She has had no fevers, chills, nausea, vomiting, difficulty breathing or upper respiratory symptoms. She reports mild postnasal drainage from allergies. Related Data Home Medications ?Medication ?Instructions ?Recorded ?Confirmed No Known Home Medications 05/20/24 05/20/24 Allergies Allergy/AdvReac Type Severity Reaction Status Date / Time No Known Drug Allergies Allergy Verified 08/21/23 05:44 Opioid HPI Opioid Management Most Recent Opioid Data: Last Pain Scale 10 05/20/24 13:38 Last MAR Pain Assessment 05/20/24 13:38 Last ORT Total Score 0 05/07/24 08:00 Last ORT Risk Category Low Risk 05/07/24 08:00 Review of Systems ROS Constitutional Denies: fever or chills Ears, nose, mouth, and throat Reports: nasal discharge; Denies: throat pain or nasal congestion Cardiovascular Denies: chest pain Respiratory Denies: shortness of breath or cough Gastrointestinal Reports: abdominal pain; Denies: nausea, vomiting or diarrhea Musculoskeletal Reports: back pain; Denies: neck pain Integumentary/Breast Denies: rash Hematologic/Lymphatic Denies: easy bruising or easy bleeding PFSH PFS Medical History Stroke ?I63.9 - Cerebral infarction, unspecified (ICD-10) Breast cancer ?C50.919 - Malignant neoplasm of unspecified site of unspecified female breast (ICD-10) Body aches ?R52 - Pain, unspecified (ICD-10) Family History Father Family history of CHF (congestive heart failure) Family history of myocardial infarction Social History Within the past year, how often did you have a drink containing alcohol: monthly or less Within the past year, how many standard drinks containing alcohol did you have on a typical day: 1 or 2 Within the past year, how often did you have six or more drinks on one occasion: never Total score: 0 Score interpretation: A score less than 3 is consistent with normal alcohol consumption. Smoking status: Never smoker Non-prescribed substance use: denies use Highest level of school completed/degree received: 8th grade Are you now , , , , never or living with a partner: In a typical week, how many times do you talk on the telephone with family, friends, or neighbors: 3 or more times per week How often do you get together with friends or relatives: 3 or more times per week How often do you attend taoist or jehovah's witness services: 4 or more times per year Do you belong to any clubs or organizations such as taoist groups unions, fraternal or athletic groups, or school groups: yes Total score: 3 Score interpretation: A score of greater than or equal to 2 indicates the lowest level of social isolation. Little interest or pleasure in doing things: not at all Feeling down, depressed, or hopeless: not at all Feel stressed/tense/nervous/anxious/difficulty sleeping: not at all Exam Narrative Exam Narrative: Gen.: Awake, alert, in no distress Head: Normocephalic, atraumatic ENT: Moist mucous membranes Respiratory: No respiratory distress, lungs clear bilaterally Cardio: Regular rate and rhythm Back: No bony tenderness of the T-spine or L-spine, no CVA tenderness. Gastrointestinal: Abdomen is soft, nondistended and mild tenderness to palpation in the epigastrium with no guarding or rebound Extremities: Moves extremities equally Psych: Normal mood and affect Neuro: No focal neuro deficit Skin: Warm, dry, intact Constitutional Vital Signs, click to edit/add: Last Vital Signs Temp 98.2 F 05/20/24 12:59 Pulse 107 H 05/20/24 13:50 Resp 19 05/20/24 13:50 BP 128/71 05/20/24 12:59 Pulse Ox 92 L 05/20/24 13:50 O2 Del Method Room Air 05/20/24 12:59 Course Vital Signs Vital signs: Vital Signs Temperature 98.2 F 05/20/24 12:59 Pulse Rate 83 05/20/24 12:59 Respiratory Rate 18 05/20/24 12:59 Blood Pressure 128/71 05/20/24 12:59 Pulse Oximetry 96 05/20/24 12:59 Oxygen Delivery Method Room Air 05/20/24 12:59 Temperature 98.2 F 05/20/24 12:59 Pulse Rate 107 H 05/20/24 13:50 Respiratory Rate 19 05/20/24 13:50 Blood Pressure 128/71 05/20/24 12:59 Pulse Oximetry 92 L 05/20/24 13:50 Oxygen Delivery Method Room Air 05/20/24 12:59 Medical Decision Making MDM Narrative Medical decision making narrative: EKG, labs were obtained. Patient noted to have mild leukocytosis, minimally elevated lactic acid but otherwise grossly unremarkable labs. Chest x-ray shows a new left lower lobe infiltrate versus atelectasis. Patient states that she did fill the Levaquin that she was prescribed and she believes that she took it, however she is not sure if she took all 7 days or not. Blood cultures, COVID and influenza testing were added for the patient. Pain was significantly improved with a GI cocktail and 50 mcg of fentanyl. Discussed the case with Dr. Valerio and we will admit for failure of outpatient treatment of left lower lobe pneumonia. Stable at time of admission. Treated with Zosyn for admission. SHARED APC VISIT, PHYSICIAN ATTESTATION: [id number] I performed a substantive part of the MDM during the patient?s E/M visit. I personally evaluated and examined the patient. I personally made or approved the documented management plan and acknowledge its risk of complications. Medical Records Medical records reviewed: Yes I reviewed the patient's medical records Lab Data Lab results reviewed: Yes I reviewed the patient's lab results Labs: Lab Results 05/20/24 Range/Units 13:26 WBC 15.1 H (4.0-11.0) 10^3/uL RBC 4.60 (4.20-5.40) 10^6/uL Hgb 13.8 (12.0-16.0) g/dL Hct 43.7 (36.0-48.0) % MCV 95.0 (81.0-99.0) fL MCH 30.0 (26.7-34.0) pg MCHC 31.6 (29.9-35.2) g/dL RDW 14.3 (11.0-15.0) % Plt Count 336 (150-450) 10^3/uL MPV 9.5 (9.5-13.5) fL Neut % (Auto) 90.6 H (43.0-75.0) % Lymph % (Auto) 6.0 L (20.5-60.0) % [place] % (Auto) 1.7 (1.7-12.0) % Eos % (Auto) 0.9 (0.9-7.0) % Baso % (Auto) 0.3 (0.2-2.0) % Neut # (Auto) 13.7 H (1.4-6.5) 10^3/uL Lymph # (Auto) 0.9 L (1.2-3.8) 10^3/uL [place] # (Auto) 0.3 (0.3-0.8) 10^3/uL Eos # (Auto) 0.1 (0.0-0.7) 10^3/uL Baso # (Auto) 0.0 (0.0-0.1) 10^3/uL Abs Immat Gran (auto) 0.07 H (0.00-0.03) 10^3/uL Imm/Tot Granulo (auto) 0.5 (0.0-0.5) % PT 10.9 (9.0-11.6) sec INR 1.03 Sodium 138 (136-145) mmol/L Potassium 3.6 (3.5-5.1) mmol/L Chloride 103 (98-107) mmol/L Carbon Dioxide 31.2 (21.0-32.0) mmol/L Anion Gap 7.4 BUN 17.0 (7.0-18.0) mg/dL Creatinine 0.80 (0.55-1.02) mg/dL Est GFR ( Amer) >60 (>=60) Est GFR (Non-Af Amer) >60 (>=60) BUN/Creatinine Ratio 21.2 Glucose 129 H (74-106) mg/dL Lactate 2.3 H* (0.4-2.0) mmol/L Calcium 9.3 (8.5-10.1) mg/dL Total Bilirubin 0.9 (0.2-1.0) mg/dL AST 160 H (15-37) U/L ALT 90 H (14-59) U/L Alkaline Phosphatase 102 (46-116) U/L Troponin I High Sens 6.9 (4.0-51.3) pg/mL NT-Pro-B Natriuret Pep 323.0 (<=1800.0) pg/mL Total Protein 6.8 (6.4-8.2) g/dL Albumin 3.5 (3.4-5.0) g/dL Globulin 3.3 g/dL Albumin/Globulin Ratio 1.1 Lipase 18.0 (16.0-77.0) U/L Imaging Data Chest x-ray: Attestation: I have reviewed the pertinent imaging results. Radiologist's impression: ITS Impressions Chest X-Ray 05/20/24 13:46 IMPRESSION: 1. New, mild left basilar infiltrates versus atelectasis. Electronically authenticated by: SAGE LOPEZ Date: 05/20/2024 13:53 ECG Data Attestation: I personally reviewed and interpreted this ECG as follows: (Normal sinus rhythm at a rate of 98 with occasional PVC, no acute ST elevation or ectopy. EKG reviewed by attending physician) Discharge Plan Discharge Chief Complaint: Back Pain/Injury Clinical Impression: Left lower lobe pneumonia, Acute thoracic back pain Patient Disposition: Admitted As Inpatient Time of Disposition Decision: 14:58 Condition: Good Prescriptions / Home Meds: No Action No Known Home Medications Print Language: Ecuadorean Referrals: Barry Valerio MD [Primary Care Provider] - 1 week
[2024-05-20 13:33] LABS: Basophils Percent Auto 0.3 % (0.2-2.0); Eosinophils Absolute Auto 0.1 10^3/uL (0.0-0.7); Eosinophils Percent Auto 0.9 % (0.9-7.0); Hematocrit 43.7 % (36.0-48.0); Hemoglobin 13.8 g/dL (12.0-16.0); Immature Granulocytes Abs Auto 0.07 10^3/uL (0.00-0.03); Immature Granulocytes Pct Auto 0.5 % (0.0-0.5); Lymphocytes Absolute Auto 0.9 10^3/uL (1.2-3.8); Mean Corpuscular HGB Conc 31.6 g/dL (29.9-35.2); Mean Platelet Volume 9.5 fL (9.5-13.5); Monocytes Absolute Auto 0.3 10^3/uL (0.3-0.8); Monocytes Percent Auto 1.7 % (1.7-12.0); Neutrophils Absolute Auto 13.7 10^3/uL (1.4-6.5); Neutrophils Percent Auto 90.6 % (43.0-75.0); Platelet Count 336 10^3/uL (150-450); Red Cell Distribution Width 14.3 % (11.0-15.0); White Blood Count 15.1 10^3/uL (4.0-11.0)
[2024-05-20] MEDS: ONDANSETRON PF 4 MG/2 ML VIAL IV (13:38)
[2024-05-20] MEDS: lidocaine HCL 15 ML, MAG HYDROX/ALUMINUM HYD/SIMETH 30 ML, HYOSCYAMINE SULFATE 0.25 MG PO (13:38)
[2024-05-20] MEDS: FENTANYL CITRATE/PF 100 MCG/2 ML VIAL 50 MCG IV (13:38)
--- NOTE | 2024-05-20 13:46 | XR_ITS ---
The [address] [address] Patient Name: JESSICA SANCHEZ MRN: [id number] date: 1940 Sex: F Assigned Patient Location: ED.MAIN Current Patient Location: ER Accession/Order Number: [id number] Exam Date: 05/20/2024 13:40 Report Date: 05/20/2024 13:53 At the request of: LAURE THOMAS Procedure: XR chest 1V EXAMINATION: XR chest 1V HISTORY: Epigastric/scapular pain COMPARISON: XR chest 05/07/2024 FINDINGS: LUNGS: Trace amount stranding within left lung base and opacification of the left lateral costal phrenic angle. VASCULATURE: No increased pulmonary vasculature. PLEURA: No pneumothorax, effusion, or pleural thickening. CARDIAC: No cardiomegaly or cardiac silhouette abnormality. MEDIASTINUM: No visible mass or adenopathy. BONES: No fracture or visible bone lesion. OTHER: Negative. XR/XR chest 1V IMPRESSION: 1. New, mild left basilar infiltrates versus atelectasis. Electronically authenticated by: SAGE LOPEZ Date: 05/20/2024 13:53
[2024-05-20 13:48] LABS: INR 1.03; Prothrombin Time 10.9 sec (9.0-11.6)
[2024-05-20 13:53] LABS: Alanine Aminotransferase 90 U/L (14-59); Albumin Globulin Ratio 1.1; Albumin Level 3.5 g/dL (3.4-5.0); Alkaline Phosphatase 102 U/L (46-116); Anion Gap 7.4; Aspartate Amino Transferase 160 U/L (15-37); BUN Creatinine Ratio 21.2; Bilirubin Total 0.9 mg/dL (0.2-1.0); Calcium 9.3 mg/dL (8.5-10.1); Carbon Dioxide 31.2 mmol/L (21.0-32.0); Chloride 103 mmol/L (98-107); Estimated GFR (African America >60 (>=60); Estimated GFR (Non-African Ame >60 (>=60); Globulin 3.3 g/dL; Glucose 129 mg/dL (74-106); Potassium 3.6 mmol/L (3.5-5.1); Sodium 138 mmol/L (136-145); Total Protein 6.8 g/dL (6.4-8.2)
[2024-05-20 14:11] LABS: Troponin I High Sensitivity 6.9 pg/mL (4.0-51.3)
[2024-05-20 14:17] LABS: Lactate/Lactic Acid 2.3 mmol/L (0.4-2.0)
[2024-05-20] MEDS: PIPERACILLIN SODIUM/TAZOBACTAM 4.5 GM in 0.9 % SODIUM CHLORIDE 50 ML IV (15:17)
[2024-05-20 15:18] LABS: Influenza Virus A Antigen Negative; Influenza Virus B Antigen Negative; Internal Control Within Normal Limits; SARS-CoV-2 Ag NEGATIVE (NEGATIVE)
--- NOTE | 2024-05-20 15:25 | P.HP_ITS ---
HPI H&P: HPI History of Present Illness Chief complaint: UPPER BACK PAIN, Pneumonia Narrative: Patient well-known to me from the office as well as recent hospitalizations. Discharged on antibiotics. Was improving and now getting worse. Seen and evaluated in the emergency room with lactic acidosis, leukocytosis and new infiltrate left lower lobe. Patient admitted with failed outpatient treatment of pneumonia. Possible nosocomial. When I saw patient up on the medical surgical floor, she was resting comfortably in bed, did have some cough during the evaluation Opioid HPI Opioid Management Most Recent Pain and Opioid Data: Last Pain Scale 10 05/20/24 13:38 Last MAR Pain Assessment 05/20/24 13:38 Last ORT Total Score 0 05/07/24 08:00 Last ORT Risk Category Low Risk 05/07/24 08:00 Review of Systems ROS Status of ROS 10 or more systems reviewed and unremark able except as noted in history and below PFSH PFS Medical History Stroke ?I63.9 - Cerebral infarction, unspecified (ICD-10) Breast cancer ?C50.919 - Malignant neoplasm of unspecified site of unspecified female breast (ICD-10) Body aches ?R52 - Pain, unspecified (ICD-10) Family History Father Family history of CHF (congestive heart failure) Family history of myocardial infarction Social History Within the past year, how often did you have a drink containing alcohol: monthly or less Within the past year, how many standard drinks containing alcohol did you have on a typical day: 1 or 2 Within the past year, how often did you have six or more drinks on one occasion: never Total score: 0 Score interpretation: A score less than 3 is consistent with normal alcohol consumption. Smoking status: Never smoker Non-prescribed substance use: denies use Highest level of school completed/degree received: 8th grade Are you now , , , , never or living with a partner: In a typical week, how many times do you talk on the telephone with family, friends, or neighbors: 3 or more times per week How often do you get together with friends or relatives: 3 or more times per week How often do you attend rastafarian or hinduism services: 4 or more times per year Do you belong to any clubs or organizations such as rastafarian groups unions, fraternal or athletic groups, or school groups: yes Total score: 3 Score interpretation: A score of greater than or equal to 2 indicates the lowest level of social isolation. Little interest or pleasure in doing things: not at all Feeling down, depressed, or hopeless: not at all Feel stressed/tense/nervous/anxious/difficulty sleeping: not at all Meds Home Medications and Allergies Home Medications ?Medication ?Instructions ?Recorded ?Confirmed ?Type aspirin 81 mg tablet,delayed 81 mg PO DAILY 05/20/24 05/20/24 History release Allergies Allergy/AdvReac Type Severity Reaction Status Date / Time No Known Drug Allergies Allergy Verified 08/21/23 05:44 Exam Constitutional Vital Signs, click to edit/add: Last Vital Signs Temp 98.2 F 05/20/24 12:59 Pulse 98 H 05/20/24 15:00 Resp 21 H 05/20/24 15:00 BP 109/68 05/20/24 15:00 Pulse Ox 93 L 05/20/24 15:10 O2 Del Method Room Air 05/20/24 15:10 Documenting provider has reviewed patient's vital signs: yes Common normals: no apparent distress HENCT Common normals: normocephalic Chest Common normals: inspection of chest normal Respiratory Common normals: normal respiratory effort, no retractions and no use of accessory muscles; not clear to ascultation bilaterally Auscultation: rhonchi left lower and egophony left lower Cardio Common normals: regular rhythm Rate: tachycardic Neuro Common normals: CN's II-XII intact bilaterally and moves all extremities Results Labs Labs: Short CBC 05/20/24 Range/Units 13:26 WBC 15.1 H (4.0-11.0) 10^3/uL Hgb 13.8 (12.0-16.0) g/dL Hct 43.7 (36.0-48.0) % Plt Count 336 (150-450) 10^3/uL BMP 05/20/24 13:26 Sodium 138 Potassium 3.6 Chloride 103 Carbon Dioxide 31.2 BUN 17.0 Creatinine 0.80 Glucose 129 H Calcium 9.3 Liver Function 09/25/24 Range/Units 13:26 Total Bilirubin 0.9 (0.2-1.0) mg/dL AST 160 H (15-37) U/L ALT 90 H (14-59) U/L Alkaline Phosphatase 102 (46-116) U/L Albumin 3.5 (3.4-5.0) g/dL Assessment and Plan Assessment and Plan (1) Left lower lobe pneumonia: (2) Myalgia: (3) Congestive heart failure: (4) Urinary tract infection: Plan Admission findings: Sinus tachycardia, leukocytosis, lactic acidosis, hyper glycemia, elevated liver function test secondary to left lower lobe pneumonia and severe sepsis. Severe sepsis secondary to left lower lobe pneumonia as outlined above-IV antibiotics, aerosol treatments, consider repeat chest x-ray IV hydration, need to be gentle with IV hydration chronic combined congestive heart failure, his last stage repeated and elevated higher, patient high risk for sepsis with septic shock, still maintain low-level fluids monitoring patient closely for signs and symptoms of shock History of chronic combined congestive heart failure-this will limit our ability to aggressively treat with fluid management for her severe sepsis. On her BNP closely and edema closely Elevated liver function test-likely since related to the above infection, will monitor daily, check ultrasound of abdomen Leukocytosis and related to the severe sepsis due to the left lower lobe pneumon ia-monitor daily Hyperglycemia-monitor daily likely related to the severe sepsis Admission status: Patient with failed outpatient treatment of pneumonia, now presenting with severe sepsis, medically necessary treatment will span 2 midnights. Inpatient status.
--- OUTSIDE RECORDS SUMMARY | 2024-05-20 15:56 | XMS_ITS | CCD ---
Author Organization [facility] Care Team Providers Care Department Specialist Name Role Phone [place] ., DR FRANCISCO [...] (1 source) Caffeine Drug Allergy 11-19-2016 [facility] Repository Problems Active Problems Problem Classification [...] by: SAGE LOPEZ Date: 2022-11-19 09:[address] [facility] XR ABD FLAT UP_PA Julita 11-08 [...] by: SAGE LOPEZ Date: 2022-11-08 12:[address] [facility] XR LSPINE MIN 4 VIEWSon 10-24 [...] by: SAGE LOPEZ Date: 2022-11-08 12:[address] [facility] XR WRIST RT MIN 3 Von [...] by: WALTER MCRAE Date: 2022-08-22 11:[address] [facility] Encounters Encounter Date Encounter Type Care Provider Facility Start: 11-19-2022 End: 11-20-[address] MARYAM ALEJANDRA . Facility: Start: 11-08-2022 End: 11-09-[address] MARYAM ALEJANDRA . Facility: Start: 08-22-2022 End: 08-22-[address] MARYAM ALEJANDRA . Facility: Payers Date Payer Category Payer Medicare [id number] 1958 Unknown [id number] 1940 Unknown [id number] 1940 Unknown [id number] 1940 Unknown [id number] Clinical Note 11-08-2022 Note Date & Type [...] by: SAGE LOPEZ Date: 2022-11-08 12:19 [facility] Summary Purpose Family History No Family History Records Found Advance Directives No Advanced Directives Records Found Additional Source Comments INFORMATION SOURCE (unrecogn ized section and content) DATE CREATED AUTHOR 11/27/2022 [facility] FOR RECORDS PERTAINING TO PATIENTS WHO [...] BE BASED ON THE PRIMARY CLINICAL RECORDS. [employer] [facility]. provides no warranty or guarantee of the accuracy or completeness of information in this document.
[2024-05-20 16:52] LABS: Ammonia <10 umol/L (11-32)
[2024-05-20] MEDS: IPRATROPIUM/ALBUTEROL SULFATE 3 ML AMPUL.NEB IH ×2 (17:04→22:47)
[2024-05-20 17:11] LABS: Lactate/Lactic Acid 3.3 mmol/L (0.4-2.0)
[2024-05-20] MEDS: LACTATED RINGER'S SOLUTION 1,000 ML 100 ML IV (17:13)
[2024-05-20] MEDS: PANTOPRAZOLE SODIUM 40 MG VIAL IV (20:39)
[2024-05-20] MEDS: PIPERACILLIN SODIUM/TAZOBACTAM 3.375 GM in 0.9 % SODIUM CHLORIDE 50 ML IV (22:34)
[2024-05-21] VITALS (25 sets, daily range): BP systolic 85–147; BP diastolic 52–88; PULSE 10–169; TEMP 36.5–36.8; O2SAT 89–93
[2024-05-21] MEDS: ACETAMINOPHEN 500 MG TABLET 1000 MG PO ×3 (02:20→21:30)
[2024-05-21] MEDS: LACTATED RINGER'S SOLUTION 1,000 ML 100 ML IV ×2 (02:20→16:11)
[2024-05-21 02:23] LABS: Bilirubin Urine NEGATIVE (NEGATIVE); Blood Urine NEGATIVE (NEGATIVE); Clarity Urine CLEAR (CLEAR); Color Urine LT. YELLOW (YELLOW); Glucose Urine UA NEGATIVE (NEGATIVE); Ketones Urine NEGATIVE (NEGATIVE); Leukocyte Esterase Urine SMALL (NEGATIVE); Nitrite Urine NEGATIVE (NEGATIVE); Protein Urine NEGATIVE (NEG/TRACE); pH Urine 7.5 (5.0-9.0)
[2024-05-21 02:26] LABS: Urine Microscopic Indicated YES
[2024-05-21 02:29] LABS: Bacteria Urine TRACE #/HPF (NONE SEEN); Cast Seen? NONE SEEN #/LPF (NONE SEEN); Crystals Seen? None Seen #/HPF (None Seen); Mucus Urine MODERATE (NONE SEEN); RBC Urine NONE SEEN #/HPF (0-2); Squamous Epithelial Cell Urine MANY #/LPF (NONE/RARE); Urine Culture Indicated NO; WBC Urine 0-2 #/HPF (NONE SEEN)
[2024-05-21] MEDS: IPRATROPIUM/ALBUTEROL SULFATE 3 ML AMPUL.NEB IH (04:06)
[2024-05-21 05:24] LABS: Basophils Absolute Auto 0.1 10^3/uL (0.0-0.1); Basophils Percent Auto 0.4 % (0.2-2.0); Eosinophils Absolute Auto 0.2 10^3/uL (0.0-0.7); Eosinophils Percent Auto 1.8 % (0.9-7.0); Hematocrit 35.4 % (36.0-48.0); Hemoglobin 11.3 g/dL (12.0-16.0); Immature Granulocytes Abs Auto 0.08 10^3/uL (0.00-0.03); Immature Granulocytes Pct Auto 0.6 % (0.0-0.5); Lymphocytes Absolute Auto 0.9 10^3/uL (1.2-3.8); Lymphocytes Percent Auto 6.9 % (20.5-60.0); Mean Corpuscular HGB Conc 31.9 g/dL (29.9-35.2); Mean Corpuscular Hemoglobin 29.8 pg (26.7-34.0); Mean Corpuscular Volume 93.4 fL (81.0-99.0); Monocytes Absolute Auto 0.6 10^3/uL (0.3-0.8); Monocytes Percent Auto 4.6 % (1.7-12.0); Neutrophils Absolute Auto 11.3 10^3/uL (1.4-6.5); Neutrophils Percent Auto 85.7 % (43.0-75.0); Platelet Count 350 10^3/uL (150-450); Red Blood Count 3.79 10^6/uL (4.20-5.40); Red Cell Distribution Width 14.5 % (11.0-15.0); White Blood Count 13.2 10^3/uL (4.0-11.0)
[2024-05-21 05:52] LABS: Alanine Aminotransferase 224 U/L (14-59); Albumin Level 2.8 g/dL (3.4-5.0); Alkaline Phosphatase 94 U/L (46-116); Anion Gap 8.1; Aspartate Amino Transferase 181 U/L (15-37); BUN Creatinine Ratio 13.7; Bilirubin Total 1.5 mg/dL (0.2-1.0); Calcium 8.9 mg/dL (8.5-10.1); Carbon Dioxide 29.7 mmol/L (21.0-32.0); Chloride 103 mmol/L (98-107); Estimated GFR (African America >60 (>=60); Estimated GFR (Non-African Ame 56 (>=60); Globulin 2.9 g/dL; Glucose 134 mg/dL (74-106); Potassium 3.8 mmol/L (3.5-5.1); Sodium 137 mmol/L (136-145); Total Protein 5.7 g/dL (6.4-8.2)
--- NOTE | 2024-05-21 07:00 | US_ITS ---
The [address] [address] Patient Name: JESSICA SANCHEZ MRN: [id number] date: 1940 Sex: F Assigned Patient Location: [place] Current Patient Location: [place] Accession/Order Number: [id number] Exam Date: 05/21/2024 07:30 Report Date: 05/21/2024 08:18 At the request of: MARYAM ALEJANDRA Procedure: US right upper quadrant EXAMINATION: US right upper quadrant HISTORY: Abd Pain COMPARISON: No relevant comparison available. TECHNIQUE: Transabdominal evaluation of the right upper quadrant. FINDINGS: LIVER: Normal size and echotexture. Color Doppler demonstrates patent hepatic veins. PORTAL VEIN: Duplex Doppler demonstrates normal hepatopetal flow pattern with flow velocity averaging 19 cm/s. GALLBLADDER: No visible gallstones, wall thickening, or pericholecystic free fluid. Negative sonographic Castle's sign. BILIARY: No abnormal dilation or stones. Common bile duct diameter is within normal limits. PANCREAS: No visible mass, abnormal atrophy, or duct dilation. KIDNEY: No hydronephrosis. Chronic benign-appearing 2.4 cm cyst within inferior pole. No visible mass or stones. Size: 11.0 x 6.0 x 5.7 cm US/US right upper quadrant IMPRESSION: 1. No abnormal or suspicious findings to account for patient's symptoms. Electronically authenticated by: SAGE LOPEZ Date: 05/21/2024 08:18
[2024-05-21 08:06] LABS: INR 1.14; Partial Thromboplastin Time 32.9 sec (22.3-36.2); Prothrombin Time 11.9 sec (9.0-11.6)
--- NOTE | 2024-05-21 08:08 | P.PN_ITS ---
Progress Note: Subjective Subjective Interval history: Patient feels a little better than yesterday per her report, does have cough during the evaluation. Denies abdominal complaint. Exam Constitutional Vital Signs, click to edit/add: Last Vital Signs Temp 98 F 05/21/24 07:34 Pulse 84 05/21/24 07:58 Resp 24 H 05/21/24 07:34 BP 93/52 05/21/24 07:34 Pulse Ox 89 L 05/21/24 07:34 O2 Del Method Room Air 05/21/24 07:34 Documenting provider has reviewed patient's vital signs: yes Common normals: no apparent distress HENMT Common normals: normocephalic Chest Common normals: inspection of chest normal Respiratory Common normals: normal respiratory effort, no retractions and no use of accessory muscles; not clear to ascultation bilaterally Auscultation: rhonchi (Does have better air exchange in the left lower lobe) left lower and egophony (Appears overall improved) left lower Cardio Common normals: regular rhythm Rate: tachycardic GI Common normals: Normal to inspection, nondistended, normoactive bowel sounds present, soft to palpation, non-tender and no masses Palpation: non-tender Neuro Common normals: CN's II-XII intact bilaterally and moves all extremities Progress Note: Objective Labs Labs: Short CBC 05/20/24 05/21/24 Range/Units 13:26 05:08 WBC 15.1 H 13.2 H (4.0-11.0) 10^3/uL Hgb 13.8 11.3 L (12.0-16.0) g/dL Hct 43.7 35.4 L (36.0-48.0) % Plt Count 336 350 (150-450) 10^3/uL BMP 05/20/24 05/21/24 13:26 05:08 Sodium 138 137 Potassium 3.6 3.8 Chloride 103 103 Carbon Dioxide 31.2 29.7 BUN 17.0 13.0 Creatinine 0.80 0.95 Glucose 129 H 134 H Calcium 9.3 8.9 Liver Function 05/20/24 05/21/24 Range/Units 13: 05:08 Total Bilirubin 0.9 1.5 H (0.2-1.0) mg/dL AST 160 H 181 H (15-37) U/L ALT 90 H 224 H (14-59) U/L Alkaline Phosphatase 102 94 (46-116) U/L Albumin 3.5 2.8 L (3.4-5.0) g/dL Urine 05/21/24 Range/Units 02:10 Urine Color Lt. yellow (YELLOW) Urine Clarity Clear (CLEAR) Urine pH 7.5 (5.0-9.0) Ur Specific [place] 1.010 (1.005-1.025) Urine Protein Negative (NEG/TRACE) mg/dL Urine Glucose (UA) Negative (NEGATIVE) mg/dL Progress Note: A&P Assessment and Plan (1) Left lower lobe pneumonia: (2) Myalgia: (3) Congestive heart failure: (4) Urinary tract infection: Plan Admission findings: Sinus tachycardia, leukocytosis, lactic acidosis, hyperglycemia, elevated liver function test secondary to left lower lobe pneumonia and severe sepsis. Severe sepsis secondary to left lower lobe pneumonia as outlined above-IV antibiotics, aerosol treatments, consider repeat chest x-ray IV hydration, need to be gentle with IV hydration chronic combined congestive heart failure, lactate repeated and elevated higher-repeating today, patient high risk for sepsis with septic shock, blood pressure is down today. Does not take any antihypertensives, will give small fluid bolus this morning. Blood pressure down to 85/60. Continue maintenance fluids. Increase spectrum of antibiotics by adding levofloxacin. History of chronic combined congestive heart failure-this will limit our ability to aggressively treat with fluid management for her severe sepsis. On her BNP closely and edema closely Elevated liver function test-deteriorated today. Check PT PTT, direct bili, samantha miller ABC, ultrasound of abdomen to be completed today, patient denies pain, no tenderness on exam other than rib pain Leukocytosis and related to the severe sepsis due to the left lower lobe pneumonia-somewhat improved today, not as much as anticipated, adding antibiotics as outlined above Hyperglycemia-monitor daily likely related to the severe sepsis-improved Arthralgias-she has taken meloxicam without side effect in the past, will add that today for arthritis flare Mild iron deficiency anemia exacerbated today with hemoglobin down 2.5 g, check occult blood, start IV Protonix Moderate protein calorie malnutrition-diet management Acute UTI-urinalysis positive for leukocyte esterase-less findings on previous urinalysis resulted in a positive culture for E. coli, on antibiotics as outlined above, awaiting culture. Admission status: Patient with failed outpatient treatment of pneumonia, now presenting with severe sepsis with left lower lobe pneumonia and acute hepatitis, medically necessary treatment will span 2 midnights. Inpatient status.
[2024-05-21 08:23] LABS: Lactate/Lactic Acid 1.8 mmol/L (0.4-2.0)
[2024-05-21] MEDS: 0.9 % SODIUM CHLORIDE 500 ML IV (08:25)
[2024-05-21] MEDS: LEVOFLOXACIN IN DEXTROSE 5 % 750 MG/150 ML PREMIX 100 MG IV (08:25)
[2024-05-21] MEDS: MELOXICAM 7.5 MG TABLET 15 MG PO (08:37)
[2024-05-21 08:59] LABS: Bilirubin Direct 0.5 mg/dL (0.0-0.2)
--- NOTE | 2024-05-21 10:15 | ECG_ITS ---
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
[2024-05-21] MEDS: PIPERACILLIN SODIUM/TAZOBACTAM 3.375 GM in 0.9 % SODIUM CHLORIDE 50 ML IV ×2 (10:22→19:26)
--- NOTE | 2024-05-21 10:26 | CM.NOTE ---
Important Message From Medicare discussed with pt, pt verbalizes understanding and signs paper. Original given to pt and copy placed in pt's chart.
--- NOTE | 2024-05-21 10:54 | ECG_ITS ---
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
--- NOTE | 2024-05-21 11:00 | PC.NURSE ---
At 10:50, HR went up to 160bpm while pt sitting in chair. Pt asymptomatic, other vitals WDL, 2nd EKG performed,d physician notified.
--- NOTE | 2024-05-21 11:24 | SWNOTE1 ---
At this time outpt physical therapy being recommended, will continue to monitor and see if pt improves and does not need outpt.
[2024-05-21] MEDS: CETIRIZINE HCL 10 MG TABLET PO (11:39)
--- NOTE | 2024-05-21 11:44 | SWNOTE1 ---
Pt does not use any DME at home and is independent at home and completes all ADL's by herself.
[2024-05-21 15:25] LABS: Troponin I High Sensitivity 8.8 pg/mL (4.0-51.3)
[2024-05-21] MEDS: PANTOPRAZOLE SODIUM 40 MG VIAL IV (21:30)
[2024-05-22] VITALS (9 sets, daily range): BP systolic 125–141; BP diastolic 83; PULSE 81–98; TEMP 36.4–36.6; O2SAT 91–93
[2024-05-22] MEDS: PIPERACILLIN SODIUM/TAZOBACTAM 3.375 GM in 0.9 % SODIUM CHLORIDE 50 ML IV ×2 (02:35→09:54)
[2024-05-22] MEDS: ACETAMINOPHEN 500 MG TABLET 1000 MG PO (04:05)
[2024-05-22] MEDS: LACTATED RINGER'S SOLUTION 1,000 ML 100 ML IV (04:05)
[2024-05-22 05:09] LABS: HBsAg Screen Negative (Negative); HCV Ab Non Reactive (Non Reactive); Hep A Ab, IgM Negative (Negative); Hep B Core Ab, IgM Negative (Negative)
[2024-05-22 05:44] LABS: Basophils Absolute Auto 0.1 10^3/uL (0.0-0.1); Basophils Percent Auto 0.6 % (0.2-2.0); Eosinophils Absolute Auto 1.1 10^3/uL (0.0-0.7); Eosinophils Percent Auto 10.7 % (0.9-7.0); Hematocrit 35.6 % (36.0-48.0); Hemoglobin 11.1 g/dL (12.0-16.0); Immature Granulocytes Abs Auto 0.08 10^3/uL (0.00-0.03); Immature Granulocytes Pct Auto 0.7 % (0.0-0.5); Lymphocytes Percent Auto 9.3 % (20.5-60.0); Mean Corpuscular HGB Conc 31.2 g/dL (29.9-35.2); Mean Corpuscular Hemoglobin 29.7 pg (26.7-34.0); Mean Corpuscular Volume 95.2 fL (81.0-99.0); Monocytes Absolute Auto 0.7 10^3/uL (0.3-0.8); Monocytes Percent Auto 6.6 % (1.7-12.0); Neutrophils Absolute Auto 7.7 10^3/uL (1.4-6.5); Neutrophils Percent Auto 72.1 % (43.0-75.0); Platelet Count 324 10^3/uL (150-450); Red Blood Count 3.74 10^6/uL (4.20-5.40); Red Cell Distribution Width 14.7 % (11.0-15.0); White Blood Count 10.7 10^3/uL (4.0-11.0)
[2024-05-22 06:00] LABS: Alanine Aminotransferase 128 U/L (14-59); Albumin Globulin Ratio 0.9; Albumin Level 2.5 g/dL (3.4-5.0); Alkaline Phosphatase 88 U/L (46-116); Anion Gap 6.8; Aspartate Amino Transferase 59 U/L (15-37); BUN Creatinine Ratio 11.2; Calcium 8.8 mg/dL (8.5-10.1); Carbon Dioxide 29.1 mmol/L (21.0-32.0); Chloride 107 mmol/L (98-107); Estimated GFR (African America >60 (>=60); Estimated GFR (Non-African Ame >60 (>=60); Globulin 2.9 g/dL; Glucose 105 mg/dL (74-106); Potassium 3.9 mmol/L (3.5-5.1); Sodium 139 mmol/L (136-145); Total Protein 5.4 g/dL (6.4-8.2)
--- NOTE | 2024-05-22 07:39 | P.DS_ITS ---
DS: Providers Provider Date of admission: 05/20/24 15:31 Primary care physician: Barry Valerio MD Consults: 05/20/24 15:16 Consult to Pharmacy Routine Consulting Provider: Reason for consultation: Please Shepherd me when Med Rec is Updated Has provider been notified: No Occupational Therapy Eval and Treat Routine Reason for consultation: Only if needed for Rehab Has provider been notified: No Physical Therapy Eval and Treat Routine Reason for consultation: Eval and Treat Has provider been notified: No DS: Diagnosis Discharge Diagnosis (1) Left lower lobe pneumonia: (2) Myalgia: (3) Congestive heart failure: (4) Urinary tract infection: Plan Admission findings: Sinus tachycardia, leukocytosis, lactic acidosis, hyperglycemia, elevated liver function test secondary to left lower lobe pneumonia and severe sepsis. Severe sepsis secondary to left lower lobe pneumonia as outlined above-IV antibiotics, aerosol treatments, consider repeat chest x-ray IV hydration, need to be gentle with IV hydration chronic combined congestive heart failure, lactate repeated and elevated higher-repeating today, patient high risk for sepsis with septic shock, blood pressure is down today. Does not take any antihypertensives, will give small fluid bolus this morning. Blood pressure down to 85/60. Continue maintenance fluids. Increase spectrum of antibiotics by adding levofloxacin. History of chronic combined congestive heart failure-this will limit our ability to aggressively treat with fluid management for her severe sepsis. On her BNP closely and edema closely Transaminitis due to spepsis-deteriorated today. Check PT PTT, direct bili, hepatitis ABC, ultrasound of abdomen to be completed today, patient denies pain, no tenderness on exam other than rib pain Leukocytosis with left shift consistent with bacterial process and related to the severe sepsis due to the left lower lobe pneumonia-somewhat improved today, not as much as anticipated, adding antibiotics as outlined above Hyperglycemia-monitor daily likely related to the severe sepsis-improved PSVT - likely due to sepsis and albuterol Arthralgias-she has taken meloxicam without side effect in the past, will add that today for arthritis flare Mild iron deficiency anemia exacerbated today with hemoglobin down 2.5 g, check occult blood, start IV Protonix Moderate protein calorie malnutrition-diet management Acute UTI-urinalysis positive for leukocyte esterase-less findings on previous urinalysis resulted in a positive culture for E. coli, on antibiotics as outlined above, awaiting culture. Admission status: Patient with failed outpatient treatment of pneumonia, now presenting with severe sepsis with left lower lobe pneumonia and acute hepa titis, medically necessary treatment will span 2 midnights. Inpatient status. Anticipated one additional day of hospitalization - pt leukocytosis with left shift, transaminitis due to sepsis improved faster than anticipated DS: Summary Time Spent with Patient Time attestation: Total time spent providing and/or coordinating discharge services: Exam Constitutional Vital Signs, click to edit/add: Last Vital Signs Temp 97.6 F 05/22/24 04:00 Pulse 81 05/22/24 06:00 Resp 16 05/22/24 04:00 BP 141/83 05/22/24 04:00 Pulse Ox 93 L 05/22/24 04:30 O2 Del Method Room Air 05/22/24 04:30 DS: Data Data Completed and Pending Labs on day of discharge: Labs from last 24 hours 05/22/24 05/21/24 05/21/24 05:35 14:28 11:33 WBC 10.7 RBC 3.74 L Hgb 11.1 L Hct 35.6 L MCV 95.2 MCH 29.7 MCHC 31.2 RDW 14.7 Plt Count 324 MPV 9.0 L Neut % (Auto) 72.1 Lymph % (Auto) 9.3 L [place] % (Auto) 6.6 Eos % (Auto) 10.7 H Baso % (Auto) 0.6 Neut # (Auto) 7.7 H Lymph # (Auto) 1.0 L [place] # (Auto) 0.7 Eos # (Auto) 1.1 H Baso # (Auto) 0.1 Abs Immat Gran (auto) 0.08 H Imm/Tot Granulo (auto) 0.7 H PT INR APTT Sodium 139 Potassium 3.9 Chloride 107 Carbon Dioxide 29.1 Anion Gap 6.8 BUN 9.0 Creatinine 0.80 Est GFR ( Amer) >60 Est GFR (Non-Af Amer) >60 BUN/Creatinine Ratio 11.2 Glucose 105 Lactate Calcium 8.8 Total Bilirubin 1.0 Direct Bilirubin AST 59 H ALT 128 H Alkaline Phosphatase 88 Troponin I High Sens 8.8 8.0 Total Protein 5.4 L Albumin 2.5 L Globulin 2.9 Albumin/Globulin Ratio 0.9 Hepatitis A IgM Ab Hep Bs Antigen Hep B Core IgM Ab Hepatitis C Antibody Hepatitis C Interp 05/21/24 05/21/24 05/21/24 07:42 05:08 05:00 WBC RBC Hgb Hct MCV MCH MCHC RDW Plt Count MPV Neut % (Auto) Lymph % (Auto) [place] % (Auto) Eos % (Auto) Baso % (Auto) Neut # (Auto) Lymph # (Auto) [place] # (Auto) Eos # (Auto) Baso # (Auto) Abs Immat Gran (auto) Imm/Tot Granulo (auto) PT 11.9 H INR 1.14 APTT 32.9 Sodium Potassium Chloride Carbon Dioxide Anion Gap BUN Creatinine Est GFR ( Amer) Est GFR (Non-Af Amer) BUN/Creatinine Ratio Glucose Lactate 1.8 Calcium Total Bilirubin Direct Bilirubin 0.5 H AST ALT Alkaline Phosphatase Troponin I High Sens Total Protein Albumin Globulin Albumin/Globulin Ratio Hepatitis A IgM Ab Negative Hep Bs Antigen Negative Hep B Core IgM Ab Negative Hepatitis C Antibody Non reactive Hepatitis C Interp Comment Discharge Plan Discharge Disposition: Home, Self-Care Condition: Good Activity: increase activity as tolerated Diet: advance to your usual diet Print Language: Uzbek Patient Instructions: Community Acquired Pneumonia (DC), Arthritis (DC) Forms: Portal Instructions Follow Up Appointments: Follow up with Dr Iman Cash 3 at 1:45 PM Discharge Date/Time: 05/22/24 10:55
[2024-05-22] MEDS: CETIRIZINE HCL 10 MG TABLET PO (08:24)
[2024-05-22] MEDS: DEXAMETHASONE SOD PHOS 4 MG/ML VIAL INJ (08:24)
[2024-05-22] MEDS: MELOXICAM 7.5 MG TABLET 15 MG PO (08:24)
--- NOTE | 2024-05-22 09:48 | PT.DAILY ---
Physical Therapy Daily Note PT Daily Note/Assess Start: 05/21/24 10:48 Freq: Status: Active Protocol: Document 05/22/24 09:39 DIMAS (Rec: 05/22/24 09:47 DIMAS [id number]) Physical Therapy Daily Note/Assessment Time In/Time Out Time In 09:05 Time Out 09:17 Pain In Pain N/A Pain Out Pain N/A Subjective Subjective Pt claims she has no need for PT but does need to use restroom. 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 Therapeutic Activity Time Therapeutic Activity Minutes (minutes) 8 Therapeutic Activity Units 1 Therapeutic Activity Treatment Chair Transfer Ability Modified Independent Therapeutic Activity Comments Sit>stand from BS chair eCferino as pt has IV pole and needs assistance to push this. Pt amb without AD to restroom 30' without LOB. Pt able to perform toilet transfer, pericare and hand hygiene Ceefrino /SUP only. Pt wishes to lay down as she's cold. pt amb from restroom to bed 20' without AD, Ceferino with assist for IV pole. Pt performs supine>sit transfer IND. Remains supine under nursing care with call light within reach. Total Physical Therapy Time Total Therapy Minutes 8 Total Physical Therapy Units 1 Summary Daily Note Summary Ceferino with all transfers and gait. Planned dc this afternoon.
--- NOTE | 2024-05-22 10:43 | CM.NOTE ---
Pt will discharge to home today, discussed with pt any discharge needs. Pt is requesting names of home caregivers, pt given list and explained it would be out of pocket cost. Pt inquires about HH services, pt is not home bound at this time. Pt performs all ADL's and is also still driving. 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 I'm definitely not going to be home bound. Discussed with pt also options for outpatient therapy, pt not interested at this time.
--- NOTE | 2024-05-27 14:45 | CM.DCFOLLOWU ---
Person spoke with: Dee How are you feeling? Better How is your pain? No pain Did you understand your discharge instructions? Yes Do you have any questions about your discharge instructions? No Were you given any prescriptions at discharge? No Were you able to get your prescriptions filled? N/A Do you understand how to take your medications as ordered? Yes Do you have any questions about your follow up appointment and do you plan to keep your follow up appointment? I see Dr. Valerio tomorrow and plan on going Is there anything else that you would like to discuss? No Questions/Comments/Concerns/Other:
== END 2024-05-22 10:55 | disposition home or self-care (01) | DRG 871 ==
LOC: ER 14:58 → MS 15:47
PROVIDERS: Physician Assistant; Admitting Provider Family Medicine; Emergency Provider Emergency Medicine; PCP Family Medicine; Visit Provider Family Medicine
DX: A41.9 Sepsis, unspecified organism (principal); J18.9 Pneumonia, unspecified organism; E87.20 Acidosis, unspecified; I50.42 Chronic combined systolic (congestive) and diastolic (congestive) heart failure; I47.19 Other supraventricular tachycardia; E44.0 Moderate protein-calorie malnutrition; N39.0 Urinary tract infection, site not specified; R65.20 Severe sepsis without septic shock; R74.01 Elevation of levels of liver transaminase levels; R73.9 Hyperglycemia, unspecified; M25.50 Pain in unspecified joint; D50.9 Iron deficiency anemia, unspecified; Z68.22 Body mass index [BMI] 22.0-22.9, adult; R79.89 Other specified abnormal findings of blood chemistry; Z79.82 Long term (current) use of aspirin; Z20.822 Contact with and (suspected) exposure to COVID-19; E80.6 Other disorders of bilirubin metabolism; Z86.73 Personal history of transient ischemic attack (TIA), and cerebral infarction without residual deficits; Z85.3 Personal history of malignant neoplasm of breast
CPT/HCPCS: 36415; 71045; 76705; 80053; 80074; 81001; 82140; 82248; 83605; 83690; 83880; 84484; 85025; 85610; 85730; 87040; 87070; 87804; 87811; 93005; 94640; 94667; 94668; 94761; 96374; 96375; 97161; 97530; 99285; G0328; J1100; J2405; J2543; J3010

== ENCOUNTER 2024-09-25 14:29 | Outpatient (OUT) | payer MEDICARE, SELFPAY ==
--- NOTE | 2024-09-25 14:37 | XR_ITS ---
[address] [address] Patient Name: JESSICA SANCHEZ MRN: [id number] date: 1940 Sex: F Assigned Patient Location: [facility] Current Patient Location: Accession/Order Number: [id number] Exam Date: 09/25/2024 14:50 Report Date: 09/28/2024 11:46 At the request of: MARYAM ALEJANDRA Procedure: XR sacrum coccyx min 2V PROCEDURE: XR sacrum coccyx min 2V COMPARISON: None. HISTORY: Back Pain ; sacral pain FINDINGS: SACRUM: No fracture, disruption of the sacral ala line, or cortical irregularity. Mild degenerative changes of the sacroiliac joints. COCCYX: No fracture or suspicious alignment. SOFT TISSUES: No widening of the sacroiliac joints. No radiopaque foreign body. OTHER: Moderate-marked degenerative disc disease L5-S1. Prior mechanical repair of right femoral neck. XR/XR sacrum coccyx min 2V IMPRESSION: 1. No fracture or appreciable acute abnormality of the sacrum or coccyx. 2. Moderate-marked degenerative disc disease and facet arthropathy L5-S1. Electronically authenticated by: SAGE LOPEZ Date: 09/28/2024 11:46
--- OUTSIDE RECORDS SUMMARY | 2024-09-25 14:44 | XMS_ITS | CCD ---
Author Organization [facility] CliniSywy Care Team Providers Care Suction Plate Roller Hand Name Role Phone [place] Severino, DR FRANCISCO Primary Care Unavailable RAYSHAWN, DR RM Consulting Unavailable RAYSHAWN, DR RM Admitting Unavailable RAYSHAWN, DR RM Attending Unavailable WALTER MCRAE Consulting Unavailable HOY ., DR FRANCISCO Admitting [...] Unavailable ZIEBABBI, DR SAGE Benz Consulting Unavailable Unavailable Primary Care Provider UnavailMiguel Forrest Admitting Unavailable NAEEM, Miguel Isabel Attending Unavailable Brown, Dewey A Consulting Unavailable Brown, Dewey A Consulting Unavailable Brown, Dewey A Consulting Unavailable Brown, Dewey A Consulting Unavailable Brown, Dewey A Consulting Unavailable Brown, Dewey A Consulting Unavailable Brown, Dewey A Consulting Unavailable Brown, Dewey A Consulting Unavailable Brown, Dewey A Consulting Unavailable Brown, Dewey A Consulting Unavailable Brown, Dewey A Consulting Unavailable NONE, XXXX Primary Care Physician Unavailab Margie Woods Unavailable Unavailable NAEEM, Miguel A Admitting Unavailable Alejandro Boykin Attending Unavailable Brown, Dewey A Consulting Unavailable Brown, Dewey A Consulting Unavailable Brown, Dewey A Consulting Unavailable Brown, Dewey A Consulting Unavailable Brown, Dewey A Consulting Unavailable Brown, Dewey A Consulting Unavailable Brown, Dewey A Consulting Unavailable Brown, Dewey A Consulting Unavailable Brown, Dewey A Consulting Unavailable Brown, Dewey A Consulting Unavailable Brown, Dewey A Consulting Unavailable [place] Attending Unavailable SUYAPA, DEWEY A Referring Unavailable DEWEY HERRERA A Attending Unavailable SUYAPA, DEWEY A Referring Unavailable BROWN, DEWEY A Attending Unavailable BROWN, DEWEY A Referring Unavailable DEWEY HERRERA Referring Unavailable Allergies Allergy Classification Reported Allergen(s) Allergy Type Date of Onset Reaction(s) Facility (1 source) Caffeine Drug Allergy 7 [facility] Repository (2 sources) No Known Medication Allergies; Translations: [No Known Medication Allergies] Propensity to adverse reactions (disorder) [facility] Repository (6 sources) Caffeine Drug Allergy 4 [facility] (6 sources) Salicylic Acid Drug Allergy 1 [facility] (6 sources) Sulfites Drug Allergy 1 Rash [facility] (6 sources) Cat Hair Extract Allergy to substance 1 [facility] Medications Current Medications Medication Drug Class(es) Dates Sig (Normalized) Sig (Original) ascorbic acid 500 mg oral tablet (7 sources) Vitamin C Start: 06-19-2024 ascorbic acid 500 mg Tab 500 mg = 1 tab(s), Oral, BIDWM, Refills(s) 0 Start Date: 06/19/24 Status: Ordered take 1 tablet by mouth once gabrielle y ascorbic acid (Vitamin C) 500 MG tablet Take 500 mg by mouth Daily Active aspirin 81 mg delayed release oral tablet (7 sources) Platelet Aggregation Inhibitor, Nonsteroidal Anti-inflammatory Drug Start: 06-19-2024 aspirin 81 MG EC tablet Take 81 mg by mouth 06/19/2024 Active diphenhydrAMINE hydrochloride 2.5 mg/ml oral solution (6 sources) Histamine-1 Receptor Antagonist diphenhydrAMINE (BENADryl) 12.5 MG/5ML elixir Take by mouth Active docusate sodium 100 mg oral capsule (7 sources) Start: 06-19-2024 Docusate Sodium (DSS) 100 MG capsule Take 100 mg by mouth 06/19/2024 Active ferrous sulfate 325 mg oral tablet (7 sources) Start: 06-19-2024 ferrous sulfate 325 mg Tab 325 mg = 1 tab(s), Oral, BIDWM, Refills(s) 0 Start Date: 06/19/24 Status: Ordered loratadine 10 mg disintegrating oral tablet (6 sources) take 1 tablet by mouth once daily loratadine (Claritin Reditabs) 10 MG disintegrating tablet Take 10 mg by mouth Daily Active oxyCODONE hydrochloride 5 mg oral tablet (5 sources) Opioid Agonist Start: 06-19-2024 End: 06-22-2024 oxyCODONE 5 mg Tab 5 mg = 1 tab(s), Oral, q4hr, PRN Pain 8-10, X 3 day(s), # 10 tab(s), Refills(s) 0 Start Date: 06/19/24 Stop Date: 06/22/24 Status: Ordered End: 09-01-2024 oxyCODONE (Oxy-IR) 5 MG imme diate release capsule Take by mouth 09/01/2024 Discontinued pantoprazole 40 mg delayed release oral tablet (7 sources) Proton Pump Inhibitor Start: 06-19-2024 pantoprazole (ProtoNix) 40 MG EC tablet Take 40 mg by mouth 06/19/2024 Active traMADol hydrochloride 50 mg oral tablet (4 sources) Opioid Agonist Start: 08-10-2024 traMADol (Ultr am) 50 MG tablet Take 50 mg by mouth as needed at bedtime 08/10/2024 Active Problems Active Problems Problem Classification Problem Date Documented Date Episodic/Chronic Abdominal pain (1 source) Left lower quadrant pain; Translations: [LEFT LOWER QUADRANT PAIN] Onset: 11-16-2022 Episodic E Codes: Fall (1 source) Fall; Translations: [Unspecified fall, initial encounter] Onset: 06-16-2024 Episodic Fluid and electrolyte disorders (1 source) Hypokalemia; Translations: [Hypokalemia] Onset: 06-17-2024 Episodic Fracture of neck of femur (hip) (1 source) Closed fracture of neck of right femur; Translations: [Fracture of unspecified part of neck of right femur, initial encounter for closed fracture] Onset: 06-17-2024 Episodic Osteoarthritis (3 sources) Bilateral primary osteoarthritis of hip; Translations: [Primary osteoarthritis, right wrist] Onset: 08-23-2022 Chronic Other circulatory disease (1 source) History of transient ischemic attack; Translations: [Personal history of transient ischemic attack (TIA), and cerebral infarction without residual deficits] Onset: 06-17-2024 Episodic Other connective tissue disease (1 source) Disorder of hip; Translations: [Other symptoms and signs involving the musculoskeletal system] 09-09-2024 Episodic Other non-traumatic joint disorders (4 sources) Pain in left hip; Translations: [PAIN IN LEFT HIP] Onset: 11-08-2022 Episodic Residual codes; unclassified (7 sources) History of operative procedure on hip; Translations: [Other specified postprocedural states] 07-15-2024 Episodic Sprains and strains (1 source) Strain [...] Results Test Name Value Interpretation Reference Range Facility XR Hip - right 3 [facility] Result: AP pelvis, lateral right hip(s) taken today and saved to the permanent medical record. X-rays show the hardware is intact. The fracture appears to be healing appropriately. There are no avascular changes to the femoral head. Lag screw is not prominent at insertion site. [facility] XR Hip - right 3 [facility] Study observation (narrative) [facility] XR Hip - right 3 [facility] Result: AP pelvis, lateral right hip(s) taken today and saved to the permanent medical record. Fracture in satisfactory position with early signs of healing. Hardware intact. No avascular changes. [facility] XR Hip - right 3 [facility] Study observation (narrative) [facility] BUNon 06-19-2024 Urea nitrogen [Mass/Vol] 15 mg/dL Normal - [facility] Comment on above: Performed By: #### 2 [id number] #### [facility] [address] [place] [address] CBC w/ Auto Diffon [id number] 4 Basophils/100 WBC (Bld) 0.9 % Normal 0.0-2.0 [facility] Comment on above: Performed By: #### 2 [id number] #### [facility] [address] [place] [address] Erythrocyte distribution width (RBC) [Ratio] 14.7 % High 10.9-14.2 [facility] Comment on above: Performed By: #### 2 [id number] #### [facility] [address] [place] [address] Hematocrit (Bld) [Volume fraction] 31.5 % Low 34.0-46.0 [facility] Comment on above: Performed By: #### 2 [id number] #### [facility] [address] [place] [address] Lymphocytes/100 WBC (Bld) 20.1 % Normal 14.0-50.0 [facility] Comment on above: Performed By: #### 2 [id number] #### [facility] [address] [place] [address] Neutrophils/100 WBC (Bld) 66.3 % Normal 36.0-75.0 [facility] Comment on above: Performed By: #### 2 [id number] #### [facility] [address] [place] [address] Platelet mean volume (Bld) [Entitic vol] 7.4 fL Normal 6.4-10.8 [facility] Comment on above: Performed By: #### 2 [id number] #### [facility] [address] [place] [address] Basophils/Leukocytes Auto (Bld) [Pure # fraction] 0.1 E9/L Normal 0.0-0.2 [facility] Comment on above: Performed By: #### 2 [id number] #### [facility] [address] [place] [address] Eosinophils (Bld) [#/Vol] 0.3 E9/L Normal 0.0-0.5 [facility] Comment on above: Performed By: #### 2 [id number] #### [facility] [address] [place] [address] Eosinophils/100 WBC (Bld) 3.0 % Normal 0.0-8.0 [facility] Comment on above: Performed By: #### 2 [id number] #### [facility] [address] [place] [address] Hemoglobin (Bld) [Mass/Vol] 10.7 g/dL Low 12.0-16.0 [facility] Comment on above: Performed By: #### 2 [id number] #### [facility] [address] [place] [address] Lymphocytes (Bld) [#/Vol] 1.8 E9/L Normal 1.0-4.0 [facility] Comment on above: Performed By: #### 2 [id number] #### [facility] [address] [place] [address] MCH (RBC) [Entitic mass] 30.3 pg Normal 27.0-34.0 [facility] Comment on above: Performed By: #### 2 [id number] #### [facility] [address] [place] [address] MCHC (RBC) [Mass/Vol] 34.0 g/dL Normal 31.4-36.0 [facility] Comment on above: Performed By: #### 2 [id number] #### [facility] [address] [place] [address] MCV (RBC) [Entitic vol] 88.9 fL Normal 80.0-100.0 [facility] Comment on above: Performed By: #### 2 [id number] #### [facility] [address] [place] [address] Monocytes (Bld) [#/Vol] 0.9 E9/L Normal 0.2-1.0 [facility] Comment on above: Performed By: #### 2 [id number] #### [facility] [address] [place] [address] Neutrophils (Bld) [#/Vol] 6.0 E9/L Normal 2.0-7.5 [facility] Comment on above: Performed By: #### 2 [id number] #### [facility] [address] [place] [address] Platelet 326.0 E9/L Normal 150.0-500.0 [facility] Comment on above: Performed By: #### 2 [id number] #### [facility] [address] [place] [address] RBC (Bld) [#/Vol] 3.5 E12/L Low 4.3-5.9 [facility] Comment on above: Performed By: #### 2 [id number] #### [facility] [address] [place] [address] WBC corrected for nucl RBC Auto (Bld) [#/Vol] 9.0 E9/L Normal 4.0-11.0 [facility] Comment on above: Performed By: #### 2 [id number] #### [facility] [address] [place] [address] CHEMISTRYOrdered By: SYSTEM SYSTEM on 06-19-2024 Anion gap [Moles/Vol] 9 mmol/L Normal 6 - 16 mEq/L R [facility] Chem Chloride [Moles/Vol] 104 mmol/L Normal 101 - 1 11 mmol/L [facility] CO2 [Moles/Vol] 27 mmol/L Normal 21 - 31 mmol/L [facility] Creatinine [Mass/Vol] 0.6 mg/dL Normal 0.5 - 1.3 mg/dL [facility] eGFR 89 mL/min/1.73 m2 Normal >=59mL/min /1 .73 m2 [facility] Potassium [Moles/Vol] 4.1 mmol/L Normal 3.5 - 5.3 mmol/L [facility] Sodium [Moles/Vol] 136 mmol/L Normal 135 - 145 mmol/L [facility] Urea nitrogen [Mass/Vol] 15 mg/dL Normal 5 - 21 mg/dL [facility] Creatinineon 06-19-2024 Creatinine [Mass/Vol] 0.6 mg/dL Normal 0.5-1.3 [facility] Comment on above: Performed By: #### 2 [id number] #### [facility] [address] [place] [address] [facility] BUNon 06-19-2024 Original [facility]: [facility]O DIFF[facility] 05-27 EOSINOPHILS/100 LEUKOCYTES:NFR:PT:BLD: QN:AUTOMATED COUNT 3 % 0.0 - 8.0 % [facility] EOSINOPHILS:NCNC:PT:BL D:QN: 0.3 [facility] BASOPHILS/LEUKOCYTES:N FR.DF:PT:BLD:QN:AUTOMA HARSHIL COUNT 0.1 [facility] ERYTHROCYTE MEAN CORPUSCULAR HEMOGLOBIN CONCENTRATION:MCNC:PT: RBC:QN 34 [facility] ERYTHROCYTE MEAN CORPUSCULAR HEMOGLOBIN:ENTMASS:PT: RBC:QN 30.3 pg 27.0 - 34.0 pg [facility] ERYTHROCYTE MEAN CORPUSCULAR VOLUME:ENTVOL:PT:RBC:Q N:AUTOMATED COUNT 88.9 fL 80.0 - 100.0 fL [facility] ERYTHROCYTES:NCNC:PT:B LD:QN:AUTOMATED COUNT 3.5 Low [facility] HEMOGLOBIN:MCNC:PT:BLD :QN: 10.7 Low [facility] LEUKOCYTES 9 [facility] MONOCYTES:NCNC:PT:BLD: QN:AUTOMATED COUNT 0.9 [facility] NEUTROPHILS:NCNC:PT:BL D:QN:AUTOMATED COUNT 6 [facility] Interpretation and review of laboratory results Abnormal [facility] LYMPHOCYTES:NCNC:PT:BL D:QN: 1.8 [facility] Platelets (Bld) [#/Vol] 326 10*3/uL [facility] Original Ordering Provider: DO Dewey eHrrera [facility] HEMATOLOGYOrdered By: SYSTEM SYSTEM on 06-19-2024 Basophils/100 WBC (Bld) 0.9 % Normal 0.0 - 2.0 % [facility] Basophils/Leukocytes Auto (Bld) [Pure # fraction] 0.1 E9/L Normal 0.0 - 0.2 E9/L [facility] Eosinophils (Bld) [#/Vol] 0.3 E9/L Normal 0.0 - 0.5 E9/L [facility] Eosinophils/100 WBC (Bld) 3.0 % Normal 0.0 - 8.0 % [facility] Erythrocyte distribution width (RBC) [Ratio] 14.7 % High 10.9 - 14.2 % [facility] Hematocrit (Bld) [Volume fraction] 31.5 % Low 34.0 - 46.0 % [facility] Hemoglobin (Bld) [Mass/Vol] 10.7 g/dL Low 12.0 - 16.0 gm/dL [facility] Lymphocytes (Bld) [#/Vol] 1.8 E9/L Normal 1.0 - 4.0 E9/L [facility] Lymphocytes/100 WBC (Bld) 20.1 % Normal 14.0 - 50.0 % [facility] MCH (RBC) [Entitic mass] 30.3 pg Normal 27.0 - 34.0 pg [facility] MCHC (RBC) [Mass/Vol] 34.0 g/dL Normal 31.4 - 36.0 gm/dL [facility] MCV (RBC) [Entitic vol] 88.9 fL Normal 80.0 - 100.0 fL [facility] Monocytes (Bld) [#/Vol] 0.9 E9/L Normal 0.2 - 1.0 E9/L [facility] Monocytes/100 WBC (Bld) 9.7 % Normal 4.0 - 14.0 % [facility] Neutrophils (Bld) [#/Vol] 6.0 E9/L Normal 2.0 - 7.5 E9/L [facility] Neutrophils/100 WBC (Bld) 66.3 % Normal 36.0 - 75.0 % [facility] Platelet 326.0 E9/L Normal 150.0 - 500.0 E9/L [facility] Platelet mean volume (Bld) [Entitic vol] 7.4 fL Normal 6.4 - 10.8 fL [facility] RBC (Bld) [#/Vol] 3.5 E12/L Low 4.3 - 5.9 E12/L [facility] WBC corrected for nucl RBC Auto (Bld) [#/Vol] 9.0 E9/L Normal 4.0 - 11.0 E9/L [facility] Inpatient Clinical Summaryon 06-19-2024 Inpatient Clinical Summary Inpatient Clinical Summary [address] [address] Clinical Summary Person Information: Name: DEE HANDY Age: 83 Years : 1940 Sex: Female PCP: NONE, XXXX Marital Status: Race: White Ethnicity: Non- or Language: Turkmen Visit Id: Visit Reason: Hip pain-swelling; Fall; FALL Speciality: Acuity: Enc Type: Inpatient Med Service: Medical Arrival: 06/16/2024 18:48:09 Discharge: Dispo Type: Admitted as IP to this Hosp Address: [address] [place] [id number] Provider Notes: Diagnosis: 1:Hip fracture, right; 2:Accidental fall; 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; 4:Hypokalemia; 5:Osteoarthritis Problems No Problems Documented Smoking Status: Never Smoker Functional Status: Sensory Deficits: Other: Glasses History of Falls: Immediately prior to hospitalization Mobility Assistance Prior to Admission: Independent ADLs: Moderate assistance Current Level of Assistance for Self-Care/Mobility: Cognitive Status: Oriented x 3 Allergies No Known Medication Allergies Measurements: Height: 165 cm Weight: 61.1 kg Blood Pressure: 103 mmHg / 66 mmHg BMI: 21.49 kg/m2 Procedures Open reduction and internal fixation of fracture (06/18/2024) Immunizations No Immunizations Documented This Visit Final Med List: ascorbic acid (ascorbic acid 500 mg Tab) 1 Tablets By Mouth twice a day (with meals). aspirin (aspirin 81 mg Oral EC Tab) 1 Tablets By Mouth every day. Refills: 0. docusate (docusate sodium 100 mg Cap) 1 Capsules By Mouth 2 times a day. ferrous sulfate (ferrous sulfate 325 mg Tab) 1 Tablets By Mouth twice a day (with meals). oxycodone (oxyCODONE 5 mg Tab) 1 Tablets By Mouth every 4 hours as needed Pain 8-10 for 3 Days. Refills: 0. pantoprazole (Pantoprazole [address] Tab) 1 Tablets By Mouth every day. Care Team Members: Attending Physician: Miguel HARTLEY DO Consulting Physician: Dewey Herrera DO Referring Physician: Follow up: With: Address: When: [place] [address] [employer] (1) Within 4 weeks Comments: Call for followup appointment Patient Education Information: Fall Prevention in the Home, Adult, [id number] Normal [facility] Inpatient Patient Summaryon 06-19-2024 Inpatient Patient Summary Inpatient Patient Summary [address] [address] Patient Discharge Instructions PERSON INFORMATION Name: DEE HANDY Date of : 1940 Current Date: 06/19/2024 13:46:02 PHYSICIANS Admitting Physician: Miguel HARTLEY DO Primary Care Physician: NATHALIE, XXXX PCP Phone Number: Comment: Discharge Diagnosis: 1:Hip fracture, right; 2:Accidental fall; 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; 4:Hypokalemia; 5:Osteoarthritis Condition at Discharge: Improved DEE HANDY has been given the following list of follow-up instructions, prescriptions, and patient education materials: PATIENT FOLLOW-UP INFORMATION Diet: Discharge Activity: Discharge Restrictions: Wound Care Instructions: Remove Your Dressing In Days Call Your Doctor For: IF UNABLE TO CONTACT YOUR PHYSICIAN AND YOU FEEL IT IS AN EMERGENCY, GO TO THE NEAREST EMERGENCY ROOM OR CALL 911 Home Treatment: Devices/Equipment: None Special Services: Additional Instructions: Discharge Instructions-OUTPT Entered On: 06/17/2024 16:57 EDT Performed On: 06/17/2024 16:56 EDT by Dewey Herrera DO Discharge Instructions Discharge Instructions Freetext : WBAT, change dressing every 2-3 days and as needed (4x4s and tegaderms), remove meri POD 14 and apply steri strips, may leave incisions open to air POD 14 if no drainage Dewey Herrera DO - 06/17/2024 16:56 EDT Primary Care Physician to provide the following pending test results: None Follow up: With: Address: When: [place] [address] [employer] (1) Within 4 weeks Comments: Call for followup appointment In the event that this physician does not participate in your insurance network, please consult with your insurance company to find a nearby participating provider. Comment: OLE Liu BETTY, have received the attached patient education materials/instruction s and have verbalized understanding: Patient Signature Date Clinican/Nurse Signature Date HERE ARE THE MEDICATION CHANGES THAT OCCURRED DURING YOUR HOSPITAL STAY New Medications Printed Prescriptions aspirin (aspirin 81 mg Oral EC Tab) 1 Tablets By Mouth every day. Refills: 0. Last Dose: ____Next Dose: ____ oxycodone (oxyCODONE 5 mg Tab) 1 Tablets By Mouth every 4 hours as needed Pain 8-10 for 3 Days. Refills: 0. Last Dose: ____Next Dose: ____ Other Medications ascorbic acid (ascorbic acid 500 mg Tab) 1 Tablets By Mouth twice a day (with meals). Last Dose: ____Next Dose: ____ docusate (docusate sodium 100 mg Cap) 1 Capsules By Mouth 2 times a day. Last Dose: ____Next Dose: ____ ferrous sulfate (ferrous sulfate 325 mg Tab) 1 Tablets By Mouth twice a day (with meals). Last Dose: ____Next Dose: ____ pantoprazole (Pantoprazole [address] Tab) 1 Tablets By Mouth every day. Last Dose: ____Next Dose: ____ No Longer Take the Following Medications meloxicam (meloxicam 7.5 mg Tab) 1 Tablets By Mouth every day. Comment: MEDICATION LIST PROVIDED FOR YOU IS A LIST OF YOUR CURRENT MEDICATIONS. PLEASE CARRY THIS WITH YOU AT ALL TIMES. ascorbic acid (ascorbic acid 500 mg Tab) 1 Tablets By Mouth twice a day (with meals). aspirin (aspirin 81 mg Oral EC Tab) 1 Tablets By Mouth every day. Refills: 0. docusate (docusate sodium 100 mg Cap) 1 Capsules By Mouth 2 times a day. ferrous sulfate (ferrous sulfate 325 mg Tab) 1 Tablets By Mouth twice a day (with meals). oxycodone (oxyCODONE 5 mg Tab) 1 Tablets By Mouth every 4 hours as needed Pain 8-10 for 3 Days. Refills: 0. pantoprazole (Pantoprazole [address] Tab) 1 Tablets By Mouth every day. Pharmacy Information: Comment: PATIENT EDUCATION INFORMATION Instructions: Fall Prevention in the Home, Adult Falls can cause injuries and can happen to people of all ages. There are many things you can do to make your home safer and to help prevent falls. What actions can I take to prevent falls? General information ??? Use good lighting in all rooms. Make sure to: ? Replace any light bulbs that burn out. ? Turn on the lights in dark areas and use night-lights. ??? Keep items that you use often in [id number] places. Lower the shelves around your home if needed. ??? Move furniture so that there are clear paths around it. ??? Do not use throw rugs or other things on the floor that can make you trip. ??? If any of your floors are uneven, fix them. ??? Add color or contrast paint or tape to clearly keith and help you see: ? Grab bars or handrails. ? First and last steps of staircases. ? Where the edge of each step is. ??? If you u (more content not included)... Normal [facility] Inpatient Patient Summary Inpatient Patient Summary DEE HANDY :1940 Visit Date:06/16/2024 Inpatient Discharge Instructions Your Care Team Admitting Physician - Miguel HARTLEY DO Consulting Physician - Dewey Herrera DO Reason for Your Visit Fall down while watering plant Your Diagnosis Hip fracture, right Accidental fall History of CVA in adulthood Hypokalemia Osteoarthritis Fall Hip pain-swelling Tests Performed CT C-Spine w/o Contrast CT Head or Brain w/o Contrast XR Chest Single View XR Hip 2-3 Views Right XR Hip 2-3 Views Right + Pelvis This Is Your Medications List ascorbic acid (ascorbic acid 500 mg Tab) aspirin (aspirin 81 mg Oral EC Tab) docusate (docusate sodium 100 mg Cap) ferrous sulfate (ferrous sulfate 325 mg Tab) oxycodone (oxyCODONE 5 mg Tab) pantoprazole (Pantoprazole [address] Tab) [Image Removed: STOP]Stop taking these medications meloxicam (meloxicam 7.5 mg Tab) Procedure History Open reduction and internal fixation of fracture (06/18/2024). Discharge Vitals Temperature (Oral) 37.1 ???C Heart Rate (Monitored) 109 Respiratory Rate 18 Blood Pressure 103/66 Weight 61.1 kg What to do next Instructions From Your Doctor Event Name Event Result Discharge Instructions Freetext WBAT, change dressing every 2-3 days and as needed (4x4s and tegaderms), remove meri POD 14 and apply steri strips, may leave incisions open to air POD 14 if no drainage Pending Diagnostic Test Results None Discharge Instructions Discharge Instructions New Follow Up Appointments after Discharge Follow Up with Dewey Herrera When: Within 4 weeks Comments: Call for followup appointment Where: [place] [address]- [employer] (1) Medications What How Much When Instructions Next Dose New ascorbic acid (ascorbic acid 500 mg Tab) 1 Tablets By Mouth Twice a day (with meals) New aspirin (aspirin 81 mg Oral EC Tab) 1 Tablets By Mouth Every day Printed Prescription New docusate (docusate sodium 100 mg Cap) 1 Capsules By Mouth 2 times a day New ferrous sulfate (ferrous sulfate 325 mg Tab) 1 Tablets By Mouth Twice a day (with meals) New oxycodone (oxyCODONE 5 mg Tab) 1 Tablets By Mouth Every 4 hours as needed for Pain 8-10 Duration: 3 Days Printed Prescription New pantoprazole (Pantoprazole [address] Tab) 1 Tablets By Mouth Every day What How Much When Comments Stop Taking meloxicam (meloxicam 7.5 mg Tab) 1 Tablets By Mouth Every day Test Results CBC BMP WBC: 9 E9/L (06/19/24 04:59:00) Glucose Lvl: 135 mg/dL (06/18/24 05:30:00) RBC: 3.5 E12/L Low (06/19/24 04:59:00) BUN: 15 mg/dL (06/19/24 04:59:00) HGB: 10.7 gm/dL Low (06/19/24 04:59:00) Creatinine: 0.6 mg/dL (06/19/24 04:59:00) Hct: 31.5 % Low (06/19/24 04:59:00) BUN/Creat Ratio: 28 High (06/18/24 05:30:00) MCV: 88.9 fL (06/19/24 04:59:00) Sodium Lvl: 136 mmol/L (06/19/24 04:59:00) MCH: 30.3 pg (06/19/24 04:59:00) Potassium Lvl: 4.1 mmol/L (06/19/24 04:59:00) MCHC: 34 gm/dL (06/19/24 04:59:00) Chloride: 104 mmol/L (06/19/24 04:59:00) RDW: 14.7 % High (06/19/24 04:59:00) CO2: 27 mmol/L (06/19/24 04:59:00) Platelet: 326 E9/L (06/19/24 04:59:00) AGAP: 9 mEq/L (06/19/24 04:59:00) MPV: 7.4 fL (06/19/24 04:59:00) Calcium Lvl: 8.6 mg/dL Low (06/18/24 05:30:00) Allergies No Known Medication Allergies Devices Implanted/Removed This Visit Notice: You have devices implanted this visit that may not be MRI compatible. Implanted HIP FRACTURE ORIF Hip R CAPTURED CORTICAL SCREWS 06/17/2024 SHORT TROCHANTERIC NAIL 06/17/2024 TELESCOPING LAG SCREWS 06/17/2024 Education Materials Fall Prevention in the Home, Adult Falls can cause injuries and can happen to people of all ages. There are many things you can do to make your home safer and to help prevent falls. What actions can I take to prevent falls? General information ??? Use good lighting in all rooms. Make sure to: ? Replace any light bulbs that burn out. ? Turn on the lights in dark areas and use night-lights. ??? Keep items that you use often in [id number] places. Lower the shelves around your home if needed. ??? Move furniture so that there are clear paths around it. ??? Do not use throw rugs or other things on the floor that can make you trip. ??? If any of your floors are uneven, fix them. ??? Add color or contrast paint or tape to clearly keith and help you see: ? Grab bars or handrails. ? First and last steps of staircases. ? Where the edge of each step is. ??? If you use a ladder or stepladder: ? Make sure that it is fully opened. Do not climb a closed ladder. ? Make sure the sides of the ladder are locked in place. ? Have someone hold the ladder while you use it. ??? Know where your pets are as you move through your home. What can I do in the bathroom? ?? (more content not included)... Normal [facility] Interdisciplinary Note - Fuad e Manageron 06-19-2024 Interdisciplinary Note - Riverboat Master Interdisciplinary Note - Riverboat Master CRM to room 306 Patient is awake, alert and oriented. Patient is from home alone. She has family friends that support her. Patient verified PCP, DME and insurance. Patient signed IMM on on 06/16, this gets reviewed. Patient is here with Fall resulting in hip fracture. 06/17 had OR hip nailing. She is assigned to Maricel OWENS, see notes. She has Ortho on case. . She has been seen by therapy post OR. Therapy gave me verbal recs of SNF. [place] Choice is [facility], she will need precert. They accepted, pending precert. Patient was provided CRM contact, hortensia board updated. CRM following Patient just needs a 3 M stay she was originally listed as [employer] [facility] but its straight medicare so she can DC there today Normal [facility] Comment on above: Result Comment: Elec tronically Signed By: Whit Campoverde\.br\Date and Time Signed: 06/19/24 13:20 EDT Aditya 06-19-2024 Anion gap [Moles/Vol] 9 mmol/L Normal 6-16 [facility] Comment on above: Performed By: #### 2 [id number] #### [facility] [address] [place] [address] Chloride [Moles/Vol] 104 mmol/L Normal 101-111 [facility] Comment on above: Performed By: #### 2 [id number] #### [facility] [address] [place] [address] CO2 [Moles/Vol] 27 mmol/L Normal 21-31 [facility] Comment on above: Performed By: #### 2 [id number] #### [facility] [address] [facility] [place] [address] Potassium [Moles/Vol] 4.1 mmol/L Normal 3.5-5.3 [facility] Comment on above: Performed By: #### 2 [id number] #### [facility] [address] [place] [address] Sodium [Moles/Vol] 136 mmol/L Normal 135-145 [facility] Comment on above: Performed By: #### 2 [id number] #### [facility] [address] [place] [address] Main OR Intraoperative Recor don 06-19-2024 Main OR Intraoperative Record Main OR Intraoperative Record IntraOp Document Type FT Summary Primary Physician: Dewey Herrera DO Finalized Date/Time: 06/19/24 09:36:57 Pt. Name: DEE HANDY Payal/Sex: 1940 Female Med Rec #: [id number] Physician: Miguel HARTLEY DO Financial #: [id number] Pt. Type: I Room/Bed: 06 Admit/Disch: 06/16/24 18:48:09 - Institution: Case Times FT Entry 1 Patient Times In Room 06/17/24 15:26:00 Out Room 06/17/24 16:46:00 Procedure Times Start 06/17/24 16:03:00 Stop 06/17/24 16:40:00 Anesthesia Times Start 06/17/24 15:26:00 Stop 06/17/24 16:46:00 Last Modified By: Cortez Knowles 06/17/24 16:52:13 General Comments: 06/19/24 Chart opened to review and send charges LRoth CSFA Case Attendance FT Entry 1 Entry 2 Entry 3 Case Attendee Dewey Herrera DO, John C. Sweene, Terry T Role Performed Surgeon - Primary Anesthesiologist Technologies Division Chair - Primary Power Generation Plant Operator Time In 06/17/24 15:26:00 06/17/24 15:26:00 06/17/24 15:26:00 Time Out 06/17/24 16:31:00 06/17/24 16:46:00 06/17/24 16:46:00 Procedure HIP FRACTURE ORIF(Right) HIP FRACTURE ORIF(Right) HIP FRACTURE ORIF(Right) Comments DR AL SUPERVISING Last Modified By: Cortez Knowles Terry T Sweene, Terry T 06/17/24 16:52:17 06/17/24 16:52:17 06/17/24 16:52:17 Entry 4 Entry 5 Entry 6 Case Attendee Whit Lazaro Kendall R Daniel, Alissa M Role Performed CONTROL INSPECTOR Scrub - Primary Data Mining Analyst Time In 06/17/24 15:26:00 06/17/24 15:26:00 06/17/24 15:26:00 Time Out 06/17/24 16:46:00 06/17/24 16:46:00 06/17/24 16:46:00 Procedure HIP FRACTURE ORIF(Right) HIP FRACTURE ORIF(Right) HIP FRACTURE ORIF(Right) Comments Last Modified By: Cortez Knowles Terry T Sweene, Terry T 06/17/24 16:52:17 06/17/24 16:52:17 06/17/24 16:52:17 General Comments: TAMMY FREY AND CAMRYN RAMOS - ARTHREX REPS HERE FOR CASE. Destini KNOWLES RN. Perioperative Protocols FT Pre-Care Text: Implements protective measures prior to operative or invasive procedure, confirms identity before the operative or invasive procedure, verifies operative procedure, surgical site, and laterality Entry 1 Procedure(s) HIP FRACTURE ORIF(Right) Patient Identity Birthday, ID Band Verified (select at Check, Patient least 2): Participation Consents / H and P Anesthesia Consent, Operative Site Present Verified H&P, Surgery/Procedure Marking Verified Consent Surgical Site Yes Laterality Verified Yes Verified Procedure Verified Yes Correct Patient Yes Position Verified Availability Equipment, Implant, Prep Dry Yes Verified (If Medication Applicable) PreOp Antibiotic Yes Time Out Dewey Herrera DO, Given Participants Enrique Barr, Cortez Knowles, Whit Lazaro, Juan Julio, Anca Mary Time Out Complete 06/17/24 16:02:00 Outcomes Met? Yes Last Modified By: Cortez Knowles 06/17/24 16:14:19 Post-Care Text: The patient is free from signs and symptoms of injury caused by extraneous objects Allergy Information FT Pre-Care Text: Verifies allergies Entry 1 Allergies Reviewed? Yes Allergies Reviewed Self/Patient With Outcomes Met? Yes Last Modified By: Cortez Knowles 06/17/24 16:14:27 Post-Care Text: The patient received appropriate medication(s) safely administered during the perioperative period Surgical Procedures FT Entry 1 Procedure Description Procedure HIP FRACTURE ORIF Modifiers Right Surgeon Description RIGHT HIP IM NAILING Primary Procedure Yes Primary Surgeon Dewey Herrera DO Start 06/17/24 16:03:00 Stop 06/17/24 16:40:00 Anesthesia Type General Surgical Service Orthopedics Wound Class 1 - Clean Last Modified By: Cortez Knowles 06/17/24 16:52:23 General Case Data FT Pre-Care Text: Classifies surgical wound, implements aseptic technique, initiates traffic control Entry 1 Case Information OR OR 5 FT Case Level Level 6 Wound Class 1 - Clean Specialty Orthopedics ASA Class 2 Preop Diagnosis RIGHT HIP FRACTURE Postop Same As Preop Yes Postop Diagnosis RIGHT HIP FRACTURE Outcomes Met? Yes Last Modified By: Cortez Knowles 06/17/24 16:14:52 Post-Care Text: The patient is free from signs and symptoms of infection Skin Assessment (Pre Procedure) FT Pre-Care Text: Implements protective measures to prevent skin/ tissue injury due to thermal or mechanical sources Evaluates for signs and symptoms of physical injury to skin and tissue Entry 1 Skin Integrity Intact, [place], Warm, & Skin Abnormality No Dry Outcomes Met? Yes Last Modified By: Cortez Knowles 06/17/24 16:15:01 Post-Care Text: The patient is free from signs and symptoms of injury caused by extraneous objects Patient Positioning FT Pre-Care Text: Identifies physical alterations that require additional precautions for procedure-specific positioning, verifies presence of prosthetics or corrective devices, positions the patient, evaluates the patient f (more content not included)... Normal [facility] eGFRon 06-19-2024 eGFR 89 mL/min/1.73 m2 Normal >=59 [facility] Comment on above: Performed By: #### 1 [id number] #### [facility] [address] [place] [address] BMPon 06-18-2024 Anion gap [Moles/Vol] 10 mmol/L Normal 6-16 [facility] Comment on above: Performed By: #### 2 [id number] #### [facility] [address] [place] [address] Calcium [Mass/Vol] 8.6 mg/dL Low 8.9-11.1 [facility] Comment on above: Performed By: #### 2 [id number] #### [facility] [address] [place] [address] Chloride [Moles/Vol] 103 mmol/L Normal 101-111 [facility] Comment on above: Performed By: #### 2 [id number] #### [facility] [address] [place] [address] CO2 [Moles/Vol] 25 mmol/L Normal 21-31 [facility] Comment on above: Performed By: #### 2 [id number] #### [facility] [address] [place] [address] Creatinine [Mass/Vol] 0.6 mg/dL Normal 0.5-1.3 [facility] Comment on above: Performed By: #### 2 [id number] #### [facility] [address] [place] [address] Glucose [Mass/Vol] 135 mg/dL Normal 55-199 [facility] Comment on above: Performed By: #### 2 [id number] #### [facility] [address] [place] [address] Potassium [Moles/Vol] 4.3 mmol/L Normal 3.5-5.3 [facility] Comment on above: Performed By: #### 2 [id number] #### [facility] [address] [place] [address] Sodium [Moles/Vol] 134 mmol/L Low 135-145 [facility] Comment on above: Performed By: #### 2 [id number] #### [facility] [address] [place] [address] Urea nitrogen [Mass/Vol] 17 mg/dL Normal 5-21 [facility] Comment on above: Performed By: #### 2 [id number] #### [facility] [address] [place] [address] Urea nitrogen/Creatinine [Mass ratio] 28 No Units High 10-20 [facility] Comment on above: Performed By: #### 2 [id number] #### [facility] [address] [place] [address] CBC w/ Auto Diffon 06-18-202 4 Basophils/100 WBC (Bld) 0.2 % Normal 0.0-2.0 [facility] Comment on above: Performed By: #### 2 [id number] #### [facility] [address] [place] [address] Basophils/Leukocytes Auto (Bld) [Pure # fraction] 0.0 E9/L Normal 0.0-0.2 [facility] Comment on above: Performed By: #### 2 [id number] #### [facility] [address] [place] [address] Eosinophils (Bld) [#/Vol] 0.0 E9/L Normal 0.0-0.5 [facility] Comment on above: Performed By: #### 2 [id number] #### [facility] [address] [place] [address] Eosinophils/100 WBC (Bld) 0.0 % Normal 0.0-8.0 [facility] Comment on above: Performed By: #### 2 [id number] #### [facility] [address] [place] [address] Erythrocyte distribution width (RBC) [Ratio] 14.9 % High 10.9-14.2 [facility] Comment on above: Performed By: #### 2 [id number] #### [facility] [address] [place] [address] Hematocrit (Bld) [Volume fraction] 35.8 % Normal 34.0-46.0 [facility] Comment on above: Performed By: #### 2 [id number] #### [facility] [address] [place] [address] Hemoglobin (Bld) [Mass/Vol] 11.9 g/dL Low 12.0-16.0 [facility] Comment on above: Performed By: #### 2 [id number] #### [facility] [address] [place] [address] Lymphocytes (Bld) [#/Vol] 1.2 E9/L Normal 1.0-4.0 [facility] Comment on above: Performed By: #### 2 [id number] #### [facility] [address] [place] [address] Lymphocytes/100 WBC (Bld) 11.7 % Low 14.0-50.0 [facility] Comment on above: Performed By: #### 2 [id number] #### [facility] [address] [place] [address] MCH (RBC) [Entitic mass] 30.0 pg Normal 27.0-34.0 [facility] Comment on above: Performed By: #### 2 [id number] #### [facility] [address] [place] [address] MCHC (RBC) [Mass/Vol] 33.2 g/dL Normal 31.4-36.0 [facility] Comment on above: Performed By: #### 2 [id number] #### [facility] [address] [place] [address] MCV (RBC) [Entitic vol] 90.3 fL Normal 80.0-100.0 [facility] Comment on above: Performed By: #### 2 [id number] #### [facility] [address] [place] [address] Monocytes (Bld) [#/Vol] 0.8 E9/L Normal 0.2-1.0 [facility] Comment on above: Performed By: #### 2 [id number] #### [facility] [address] [place] [address] Neutrophils (Bld) [#/Vol] 8.4 E9/L High 2.0-7.5 [facility] Comment on above: Performed By: #### 2 [id number] #### [facility] [address] [place] [address] Neutrophils/100 WBC (Bld) 80.5 % High 36.0-75.0 [facility] Comment on above: Performed By: #### 2 [id number] #### [facility] [address] [place] [address] Platelet mean volume (Bld) [Entitic vol] 7.7 fL Normal 6.4-10.8 [facility] Comment on above: Performed By: #### 2 [id number] #### [facility] [address] [place] [address] Platelets (Bld) [#/Vol] 342.0 E9/L Normal 150.0-500.0 [facility] Comment on above: Performed By: #### 2 [id number] #### [facility] [address] [place] [address] RBC (Bld) [#/Vol] 4.0 E12/L Low 4.3-5.9 [facility] Comment on above: Performed By: #### 2 [id number] #### [facility] [address] [place] [address] WBC corrected for nucl RBC Auto (Bld) [#/Vol] 10.4 E9/L Normal 4.0-11.0 [facility] Comment on above: Performed By: #### 2 [id number] #### [facility] [address] [place] [address] CHEMISTRYOrdered By: SYSTEM SYSTEM on 06-18-2024 Anion gap [Moles/Vol] 10 mmol/L Normal 6 - 16 mEq/L R emisol Chem Calcium [Mass/Vol] 8.6 mg/dL Low 8.9 - 11. 1 mg/dL [facility] Chloride [Moles/Vol] 103 mmol/L Normal 101 - 1 11 mmol/L [facility] CO2 [Moles/Vol] 25 mmol/L Normal 21 - 31 mmol/L [facility] Creatinine [Mass/Vol] 0.6 mg/dL Normal 0.5 - 1.3 mg/dL [facility] eGFR 89 mL/min/1.73 m2 Normal >=59mL/min /1 .73 m2 [facility] Glucose [Mass/Vol] 135 mg/dL Normal 55 - 199 mg/dL [facility] Potassium [Moles/Vol] 4.3 mmol/L Normal 3.5 - 5.3 mmol/L [facility] Sodium [Moles/Vol] 134 mmol/L Low 135 - 145 mmol/L [facility] Urea nitrogen [Mass/Vol] 17 mg/dL Normal 5 - 21 mg/dL [facility] Urea nitrogen/Creatinine [Mass ratio] 28 mg/mg High 10 - 20 [facility] FT CBC W/ AUTO DIFFon 05-27 EOSINOPHILS/100 LEUKOCYTES:NFR:PT:BLD: QN:AUTOMATED COUNT 0 % 0.0 - 8.0 % [facility] EOSINOPHILS:NCNC:PT:BL D:QN: 0 [facility] BASOPHILS/LEUKOCYTES:N FR.DF:PT:BLD:QN:AUTOMA HARSHIL COUNT 0 [facility] ERYTHROCYTE MEAN CORPUSCULAR HEMOGLOBIN CONCENTRATION:MCNC:PT: RBC:QN 33.2 [facility] ERYTHROCYTE MEAN CORPUSCULAR HEMOGLOBIN:ENTMASS:PT: RBC:QN 30 pg 27.0 - 34.0 pg [facility] ERYTHROCYTE MEAN CORPUSCULAR VOLUME:ENTVOL:PT:RBC:Q N:AUTOMATED COUNT 90.3 fL 80.0 - 100.0 fL [facility] ERYTHROCYTES:NCNC:PT:B LD:QN:AUTOMATED COUNT 4 Low [facility] HEMOGLOBIN:MCNC:PT:BLD :QN: 11.9 Low [facility] LEUKOCYTES 10.4 [facility] MONOCYTES:NCNC:PT:BLD: QN:AUTOMATED COUNT 0.8 [facility] NEUTROPHILS:NCNC:PT:BL D:QN:AUTOMATED COUNT 8.4 High [facility] PLATELETS:NCNC:PT:BLD: QN:AUTOMATED COUNT 342 [facility] Interpretation and review of laboratory results Abnormal [facility] LYMPHOCYTES:NCNC:PT:BL D:QN: 1.2 [facility] Original Ordering Provider: DO Dewey Herrera [facility] HEMATOLOGYOrdered By: SYSTEM SYSTEM on 06-18-2024 Basophils/100 WBC (Bld) 0.2 % Normal 0.0 - 2.0 % [facility] Basophils/Leukocytes Auto (Bld) [Pure # fraction] 0.0 E9/L Normal 0.0 - 0.2 E9/L [facility] Eosinophils (Bld) [#/Vol] 0.0 E9/L Normal 0.0 - 0.5 E9/L [facility] Eosinophils/100 WBC (Bld) 0.0 % Normal 0.0 - 8.0 % [facility] Erythrocyte distribution width (RBC) [Ratio] 14.9 % High 10.9 - 14.2 % [facility] Hematocrit (Bld) [Volume fraction] 35.8 % Normal 34.0 - 46.0 % [facility] Hemoglobin (Bld) [Mass/Vol] 11.9 g/dL Low 12.0 - 16.0 gm/dL [facility] Lymphocytes (Bld) [#/Vol] 1.2 E9/L Normal 1.0 - 4.0 E9/L [facility] Lymphocytes/100 WBC (Bld) 11.7 % Low 14.0 - 50.0 % [facility] MCH (RBC) [Entitic mass] 30.0 pg Normal 27.0 - 34.0 pg [facility] MCHC (RBC) [Mass/Vol] 33.2 g/dL Normal 31.4 - 36.0 gm/dL [facility] MCV (RBC) [Entitic vol] 90.3 fL Normal 80.0 - 100.0 fL [facility] Monocytes (Bld) [#/Vol] 0.8 E9/L Normal 0.2 - 1.0 E9/L [facility] Monocytes/100 WBC (Bld) 7.6 % Normal 4.0 - 14.0 % [facility] Neutrophils (Bld) [#/Vol] 8.4 E9/L High 2.0 - 7.5 E9/L [facility] Neutrophils/100 WBC (Bld) 80.5 % High 36.0 - 75.0 % [facility] Platelet mean volume (Bld) [Entitic vol] 7.7 fL Normal 6.4 - 10.8 fL [facility] Platelets (Bld) [#/Vol] 342.0 E9/L Normal 150.0 - 500.0 E9/L [facility] RBC (Bld) [#/Vol] 4.0 E12/L Low 4.3 - 5.9 E12/L [facility] WBC corrected for nucl RBC Auto (Bld) [#/Vol] 10.4 E9/L Normal 4.0 - 11.0 E9/L [facility] Interdisciplinary Note - Fuad e Manageron 06-18-2024 Interdisciplinary Note - Riverboat Master Interdisciplinary Note - Riverboat Master CRM to room 306 Patient is awake, alert and oriented. Patient is from home alone. She has a family friend today in room. Patient verified PCP, DME and insurance. Patient signed IMM on on 06/16, this gets reviewed. Patient is here with Fall resulting in hip fracture. 06/17 had OR hip nailing. She is assigned to Maricel OWENS, see notes. She has Ortho on case. . She will be seen by therapy post OR. Therapy gave me verbal recs of SNF. [place] at [place]. Choice is [facility], she will need precert. They accepted, pending precert. Patient was provided CRM contact, white board updated. CRM following Normal [facility] Comment on above: Result Comment: Elec tronically Signed By: Whit Campoverde\.jessica\Date and Time Signed: 06/18/24 09:54 EDT Interdisciplinary Note - Adal n 06-18-2024 Interdisciplinary Note - OT Interdisciplinary Note - OT OT AM-PAC six clicks score: =SNF. Main barriers towards Pt's safe and functional performance are pain and activity tolerance. Pt requires mod A to complete bed mobility and max A for lower body self care tasks with poor tolerance due to R hip pain. OT to follow daily, progressing as tolerates. SNF recommended at this time to maximize Pt's safety and independence with all self care ADL tasks and transfers. Normal [facility] U Drug Screenon 06-18-2024 Amphetamines Screen method >1000 ng/mL Ql (U) Negative Normal NEGATIVE [facility] Comment on above: Result Comment: Nega tive Cutoff: <1000 ng/mL Performed By: #### 2 [id number] #### [facility] [address] [place] [address] Barbiturates Screen Ql (U) Negative Normal NEGATIVE [facility] Comment on above: Result Comment: Nega tive Cutoff: <200 ng/mL Performed By: #### 2 [id number] #### [facility] [address] [place] [address] Benzodiazepines Ql (U) Negative Normal NEGATIVE [facility] Comment on above: Result Comment: Nega tive Cutoff: <200 ng/mL Performed By: #### 2 [id number] #### [facility] [address] [place] [address] Cannabinoids Screen Ql (U) Negative Normal NEGATIVE [facility] Comment on above: Result Comment: Nega tive Cutoff: <50 ng/mL Performed By: #### 2 [id number] #### [facility] [address] [place] [address] Cocaine Ql (U) Negative Normal NEGATIVE [facility] Comment on above: Result Comment: Nega tive Cutoff: <300 ng/mL Performed By: #### 2 [id number] #### [facility] [address] [place] [address] Opiates Screen Ql (U) Positive Abnormal NEGATIVE [facility] Comment on above: Result Comment: No C onfirmation Requested by Physician Result Verified by Repeat Analysis Unconfirmed by an Alternate Method called to and read back by Crystal Vrable Negative Cutoff: <300 ng/mL Performed By: #### 2 [id number] #### [facility] [address] [place] [address] Phencyclidine Screen method >25 ng/mL Ql (U) Negative Normal NEGATIVE [facility] Comment on above: Result Comment: Nega tive Cutoff: <25 ng/mL These drug screen results are to be used for medical (i.e., treatment) purposes only. Unconfirmed drug screening results must not be used for non-medical purposes (e.g., employment testing, legal testing). Performed By: #### 2 [id number] #### [facility] [address] [place] [address] U Fentanyl Positive Abnormal NEGATIVE [facility] Comment on above: Result Comment: No C onfirmation Requested by Physician Result Verified by Repeat Analysis Unconfirmed by an Alternate Method called to and read back by Crystal Vrable Negative Cutoff: <5 ng/mL These drug screen results are to be used for medical (i.e., treatment) purposes only. Unconfirmed drug screening results must not be used for non-medical purposes (e.g., employment testing, legal testing). Performed By: #### 2 [id number] #### [facility] [address] [place] [address] XR Hip 2-3 Views Righton XR Hip 2-3 Views Right Exam Date/Time: 06/17/2024 17:10 EDT Reason for Exam: Fracture Report XR Hip 2-3 Views Right : 06/17/2024 2:50 PM CLINICAL HISTORY: Fracture. COMPARISON: None available. Intraoperative fluoroscopy was provided for Dr. Herrera's procedure. Air kerma mGy: 15.33; fluoroscopy time: 72.4 seconds No diagnostic images were obtained. Please see Dr. Herrera's surgical notes for complete details. Ordering Provider: Dewey Herrera FINAL REPORT Dictated: 06/18/2024 8:34 am Lamin Adames DO Signed (Electronic Signature): 06/18/2024 8:34 am Signed by: Lamin Adames DO Transcribed by: PRINCESS Technologist: MARAH Technical Comments Radiation Dose: Ka,r in mGy = 15.33 DAP = 0 Fluoro Time: 72.4 seconds Normal [facility] eGFRon 06-18-2024 eGFR 89 mL/min/1.73 m2 Normal >=59 [facility] Comment on above: Performed By: #### 1 [id number] #### [facility] [address] [place] [address] BLOOD BANKOrdered By: Alfonzo Benson on 06-17-2024 ABO/Rh Retype Interp Positive Invalid Interpretation Code [facility] BB Subsection CHEMISTRYOrdered By: SYSTEM SYSTEM on 06-17-2024 Amphetamines Screen method >1000 ng/mL Ql (U) NEGATIVE 8 (06/17/24 4:35 PM) Normal NEGATIVE [facility] Comment on above: Interpretive Data: N egative Cutoff: <1000 ng/mL Barbiturates Screen Ql (U) NEGATIVE 9 (06/17/24 4:35 PM) Normal NEGATIVE [facility] Comment on above: Interpretive Data: N egative Cutoff: <200 ng/mL Benzodiazepines Ql (U) NEGATIVE 1 (06/17/24 4:35 PM) Normal NEGATIVE [facility] Comment on above: Interpretive Data: N egative Cutoff: <200 ng/mL Cannabinoids Screen Ql (U) NEGATIVE 7 (06/17/24 4:35 PM) Normal NEGATIVE [facility] Comment on above: Interpretive Data: N egative Cutoff: <50 ng/mL Cocaine Ql (U) NEGATIVE 2 (06/17/24 4:35 PM) Normal NEGATIVE [facility] Comment on above: Interpretive Data: N egative Cutoff: <300 ng/mL Opiates Screen Ql (U) POSITIVE 4, 5 *ABN* (06/17/24 4:35 PM) Invalid Interpretation Code NEGATIVE Remisol [facility] Comment on above: Result Comment: No C onfirmation Requested by Physician Result Verified by Repeat Analysis Unconfirmed by an Alternate Method called to and read back by [employer] Interpretive Data: N egative Cutoff: <300 ng/mL Phencyclidine Screen method >25 ng/mL Ql (U) NEGATIVE 6 (06/17/24 4:35 PM) Normal NEGATIVE [facility] Comment on above: Interpretive Data: N egative Cutoff: <25 ng/mL These drug screen results are to be used for medical (i.e., treatment) purposes only. Unconfirmed drug screening results must not be used for non-medical purposes (e.g., employment testing, legal testing). U Fentanyl POSITIVE 15, 16 *ABN* (06/17/24 4:35 PM) Invalid Interpretation Code NEGATIVE [facility] Comment on above: Result Comment: No C onfirmation Requested by Physician Result Verified by Repeat Analysis Unconfirmed by an Alternate Method called to and read back by [employer] Interpretive Data: N egative Cutoff: <5 ng/mL These drug screen results are to be used for medical (i.e., treatment) purposes only. Unconfirmed drug screening results must not be used for non-medical purposes (e.g., employment testing, legal testing). Anion gap [Moles/Vol] 9 mmol/L Normal 6 - 16 mEq/L R emisol Chem Calcium [Mass/Vol] 9.0 mg/dL Normal 8.9 - 11. 1 mg/dL [facility] Chloride [Moles/Vol] 105 mmol/L Normal 101 - 1 11 mmol/L [facility] Cholesterol [Mass/Vol] 141 mg/dL Normal 120 - 200 mg/dL [facility] Cholesterol in HDL [Mass/Vol] 54 mg/dL Invalid Interpretation Code Remisol Chem Comment on above: Result Comment: '>= 60 LOW RISK' '<= 40 HIGH RISK' Cholesterol in LDL [Mass/Vol] 75 mg/dL Normal <=129mg/dL [facility] Cholesterol in VLDL [Mass/Vol] 13 mg/dL Normal 7 - 40 mg/dL [facility] CO2 [Moles/Vol] 28 mmol/L Normal 21 - 31 mmol/L [facility] Creatinine [Mass/Vol] 0.5 mg/dL Normal 0.5 - 1.3 mg/dL [facility] eGFR 93 mL/min/1.73 m2 Normal >=59mL/min /1 .73 m2 [facility] Glucose [Mass/Vol] 130 mg/dL Normal 55 - 199 mg/dL [facility] Magnesium [Mass/Vol] 1.9 mg/dL Normal 1.3 - 2 .4 mg/dL [facility] Potassium [Moles/Vol] 4.0 mmol/L Normal 3.5 - 5.3 mmol/L [facility] Sodium [Moles/Vol] 138 mmol/L Normal 135 - 145 mmol/L [facility] Triglyceride [Mass/Vol] 63 mg/dL Normal <=149mg/dL [facility] Urea nitrogen [Mass/Vol] 14 mg/dL Normal 5 - 21 mg/dL [facility] Urea nitrogen/Creatinine [Mass ratio] 28 mg/mg High 10 - 20 Rem[facility] HEMATOLOGYOrdered By: SYSTEM SYSTEM on 06-17-2024 Basophils/100 WBC (Bld) 0.4 % Normal 0.0 - 2.0 % [facility]e Basophils/Leukocytes Auto (Bld) [Pure # fraction] 0.0 E9/L Normal 0.0 - 0.2 E9/L [facility] Eosinophils (Bld) [#/Vol] 0.1 E9/L Normal 0.0 - 0.5 E9/L [facility] Eosinophils/100 WBC (Bld) 0.8 % Normal 0.0 - 8.0 % [facility] Erythrocyte distribution width (RBC) [Ratio] 14.5 % High 10.9 - 14.2 % [facility] Hematocrit (Bld) [Volume fraction] 38.0 % Normal 34.0 - 46.0 % [facility] Hemoglobin (Bld) [Mass/Vol] 12.7 g/dL Normal 12.0 - 16.0 gm/dL [facility] Lymphocytes (Bld) [#/Vol] 1.3 E9/L Normal 1.0 - 4.0 E9/L [facility] Lymphocytes/100 WBC (Bld) 13.8 % Low 14.0 - 50.0 % [facility] MCH (RBC) [Entitic mass] 29.9 pg Normal 27.0 - 34.0 pg [facility]e MCHC (RBC) [Mass/Vol] 33.5 g/dL Normal 31.4 - 36.0 gm/dL [facility] MCV (RBC) [Entitic vol] 89.1 fL Normal 80.0 - 100.0 fL [facility] Monocytes (Bld) [#/Vol] 0.7 E9/L Normal 0.2 - 1.0 E9/L [facility] Monocytes/100 WBC (Bld) 7.9 % Normal 4.0 - 14.0 % [facility] Neutrophils (Bld) [#/Vol] 7.0 E9/L Normal 2.0 - 7.5 E9/L [facility] Neutrophils/100 WBC (Bld) 77.1 % High 36.0 - 75.0 % [facility] Platelet 341.0 E9/L Normal 150.0 - 500.0 E9/L [facility] Platelet mean volume (Bld) [Entitic vol] 7.2 fL Normal 6.4 - 10.8 fL [facility] RBC (Bld) [#/Vol] 4.3 E12/L Normal 4.3 - 5.9 E12/L [facility] WBC corrected for nucl RBC Auto (Bld) [#/Vol] 9.1 E9/L Normal 4.0 - 11.0 E9/L [facility] UA WITH CULT RFLXon 06-17-20 BILIRUBIN:PRTHR:PT:URI NE:ORD:TEST STRIP.AUTOMATED Negative Negative mg/dL [facility] CLARITY:TYPE:PT:URINE: NOM: Clear Clear [facility] CLASS:TYPE:PT:URINE COLLECTION METHOD:NOM:* Costa [facility] COLOR:TYPE:PT:URINE:NO M:AUTO Yellow Yellow [facility] Comment on above: Microscopic readings are only performed on those samples that meet specific criteria set forth by [facility]. [facility] PH:LSCNC:PT:URINE:QN:T EST STRIP 6.5 5.0 - 9.0 [facility] SPECIFIC GRAVITY:RDEN:PT:URINE: QN:TEST STRIP 1.020 1.005 - 1.030 [facility] GLUCOSE:PRTHR:PT:URINE :ORD:TEST STRIP Negative Negative mg/dL [facility] HEMOGLOBIN:MCNC:PT:URI NE:SEMIQN:TEST STRIP.AUTOMATED Negative Negative mg/dL [facility] Interpretation and review of laboratory results Abnormal [facility] KETONES:PRTHR:PT:URINE :ORD:TEST STRIP.AUTOMATED 1+ Abnormal Negative mg/dL [facility] LEUKOCYTE ESTERASE:PRTHR:PT:URIN E:ORD:TEST STRIP.AUTOMATED Negative Negative CD:[id number] [facility] NITRITE:PRTHR:PT:URINE :ORD:TEST STRIP.AUTOMATED Negative Negative mg/dL [facility] PROTEIN:PRTHR:PT:URINE :ORD:TEST STRIP Negative Negative mg/dL [facility] UROBILINOGEN:MCNC:PT:U RINE:SEMIQN:TEST STRIP Negative Negative mg/dL [facility] Original Ordering Provider: DO Dewey Herrera [facility] UA with Cult Rflxon 06-17-20 Bilirubin Ql (U) Negative Normal Negative [facility] Comment on above: Performed By: #### 4 [id number] #### [facility] [address] [place] [address] Clarity (U) Clear Normal Clear [facility] Comment on above: Performed By: #### 4 [id number] #### [facility] [address] [place] [address] Color (U) Yellow Normal Yellow [facility] Comment on above: Result Comment: Micr oscopic readings are only performed on those samples that meet specific criteria set forth by [facility]. Performed By: #### 4 [id number] #### [facility] [address] [place] [address] Glucose Ql (U) Negative Normal Negative [facility] Comment on above: Performed By: #### 4 [id number] #### [facility] [address] [place] [address] Hemoglobin Auto test strip (U) [Mass/Vol] Negative Normal Negative [facility] Comment on above: Performed By: #### 4 [id number] #### [facility] [address] [place] [address] Ketones Auto test strip Ql (U) 1+ mg/dL Abnormal Negative [facility] Comment on above: Performed By: #### 4 [id number] #### [facility] [address] [place] [address] Leukocyte esterase Auto test strip Ql (U) Negative Normal Negative [facility] Comment on above: Performed By: #### 4 [id number] #### [facility] [address] [place] [address] Nitrite Auto test strip Ql (U) Negative Normal Negative [facility] Comment on above: Performed By: #### 4 [id number] #### [facility] [address] [place] [address] pH (U) 6.5 [pH] Invalid Interpretation Code 5.0-9.0 [facility] Comment on above: Performed By: #### 4 [id number] #### [facility] [address] [place] [address] Protein Ql (U) Negative Normal Negative [facility] Comment on above: Performed By: #### 4 [id number] #### [facility] [address] [place] [address] Specific gravity (U) [Rel density] 1.020 Invalid Interpretation Code 1.005-1.030 [facility] Comment on above: Performed By: #### 4 [id number] #### [facility] [address] [place] [address] Urobilinogen (U) [Mass/Vol] Negative Normal Negative [facility] Comment on above: Performed By: #### 4 [id number] #### [facility] [address] [place] [address] Type of Urine collection method Costa Normal [facility] Comment on above: Performed By: #### 4 [id number] #### [facility] [address] [place] [id number] URINALYSISOrdered By: SYSTEM SYSTEM on 06-17-2024 Bilirubin Ql (U) Negative Normal Negativemg/ d L [facility] UA Auto SS Clarity (U) Clear (06/17/24 4:35 PM) Normal Clear [facility] UA Auto SS Color (U) Yellow 3 (06/17/24 4:35 PM) Normal Yellow [facility] UA Auto SS Comment on above: Interpretive Data: M icroscopic readings are only performed on those samples that meet specific criteria set forth by [facility]. Glucose Ql (U) Negative Normal Negativemg/d L [facility] UA Auto SS Hemoglobin Auto test strip (U) [Mass/Vol] Negative Normal Negativemg/d L [facility] UA Auto SS Ketones Auto test strip Ql (U) 1+ mg/dL Invalid Interpretation Code Negativemg/d L [facility] UA Auto SS Leukocyte esterase Auto test strip Ql (U) Negative Normal NegativeLeu/ uL [facility] UA Auto SS Nitrite Auto test strip Ql (U) Negative Normal Negativemg/d L [facility] UA Auto SS pH (U) 6.5 *NA* (06/17/24 4:35 PM) Invalid Interpretation Code 5.0 - 9.0 [facility] UA Auto SS Protein Ql (U) Negative Normal Negativemg/d L [facility] UA Auto SS Specific gravity (U) [Rel density] 1.020 *NA* (06/17/24 4:35 PM) Invalid Interpretation Code 1.005 - 1.030 [facility] UA Auto SS Urobilinogen (U) [Mass/Vol] Negative Normal Negativemg/d L [facility] UA Auto SS URINALYSISOrdered By: Cortez Knowles on 06-17-2024 UA Spec Desc Costa (06/17/24 4:35 PM) Normal [facility] UA Auto SS BLOOD BANKOrdered By: Juan Carlos Bradley on 06-16-2024 ABO/Rh Interp Positive Invalid Interpretation Code [facility] BB Subsection ABSC Gel Interp Negative (06/16/24 8:05 PM) Normal [facility] BB Subsection CHEMISTRYOrdered By: SYSTEM SYSTEM on 06-16-2024 Albumin [Mass/Vol] 4.2 g/dL Normal 3.3 - 5.0 gm/dL Remisol Chem Albumin/Globulin [Mass ratio] 1.5 {ratio} Normal 1.1 - 2.2 [facility] ALP [Catalytic activity/Vol] 67 [iU]/d Normal 21 - 98 Int._Unit/L [facility] Chem ALT No additional P-5'-P [Catalytic activity/Vol] 12 [iU]/d Normal 6 - 46 Int._Unit/L [facility] Chem AST [Catalytic activity/Vol] 18 [iU]/d Normal 5 - 43 Int._Unit/L [facility] Bilirubin [Mass/Vol] 0.5 mg/dL Normal 0.0 - 1 .1 mg/dL [facility] Bilirubin.direct [Mass/Vol] 0.1 mg/dL Normal 0.0 - 0.4 mg/dL [facility] Bilirubin.indirect [Mass or moles/Vol] 0.4 mg/dL Normal 0.1 - 0.9 mg/dL [facility] Calcium [Mass/Vol] 9.4 mg/dL Normal 8.9 - 11. 1 mg/dL [facility] Ethanol Lvl mg/dL Normal <=11mg/dL [facility] Globulin (S) [Mass/Vol] 2.8 g/dL Normal 1.4 - 4.0 gm/dL Rem[facility] Glucose [Mass/Vol] 123 mg/dL Normal 55 - 199 mg/dL [facility] Chem Lactic Acid Lvl 1.3 mmol/L Normal 0.5 - 2.2 mmol/L [facility] Chem Lipase [Catalytic activity/Vol] 7 U/L Low 13 - 58 unit/L [facility] Protein [Mass/Vol] 7.0 g/dL Normal 6.0 - 7.8 gm/dL Rem[facility] Chem Troponin HS 11.50 pg/mL Normal 10.10 - 27.10 pg/mL [facility] Comment on above: Interpretive Data: T he 95% CI (Confidence Interval) PPV (Positive Predictive Value) for myocardial infarction in females is 38 pg/mL, in males 51 pg/mL. The results should be used in conjunction with clinical conditions of myocardial infarction. (Access High Sensitivity Troponin I Instructions For Use, Italo Easley, March 2018) Urea nitrogen/Creatinine [Mass ratio] 27 mg/mg High 10 - 20 Remisol Chem COAGULATIONOrdered By: Audrey Kilgore on 06-16-2024 aPTT Coag (PPP) [Time] 34.4 s Normal 25.1 - 36.5 second(s) [facility] Auto Coag Comment on above: Interpretive Data: P arameter 15 days - 4 weeks 1 - 5 months 6 - 11 months 1 - 5 years 6 - 10 years 11 - 17 years PTT Mean: 35.4 (27.6-45.6) Mean: 33.5 (24.8-40.7) Mean: 32.4 (25.1-40.7) Mean: 31.6 (24.0-39.2) Mean: 31.6 (26.9-38.7) Mean: 31.0 (24.6-38.4) Pediatric Reference ranges were obtained from a study by ansley Devlin al. prepared from 1437 samples obtained at 7 different centers using the same coagulation reagent and instrumentation as [facility]. Currently there are no coagulation studies available worldwide for children to 14 days, and no normal ranges. Heparin therapeutic range (represented by Anti-Factor Xa activity of 0.2 - 0.4 U/mL) corresponds to PTT of 56.6 - 109.0 sec. INR Coag (PPP) [Relative time] 1.04 {INR} Invalid Interpretation Code [facility] Auto Coag Comment on above: Interpretive Data: I NR results are specifically intended to assess patients stabilized on long-term Anticoagulation therapy suggested INR s Less Intensive Anticoagulation 2.0 3.0 Conventional Range 3.0 4.5 PT Coag (PPP) [Time] 11.7 s Normal 9.4 - 1 2.5 second(s) [facility] Auto Coag Comment on above: Interpretive Data: 1 5 days - 4 weeks 1 - 5 months 6 -11 months 1-5 years 6-10 years 11 -17 years Mean: 11.2 (9.5-12.6) Mean: 11.0 (9.7-12.8) Mean: 11.0 (9.8-13.0) Mean: 11.3 (9.9-13.4) Mean: 11.7 (10.0-14.6) Mean: 11.8 (10.0 - 14.1) Pediatric Reference ranges were obtained from a study by ansley Devlin al. prepared from 1437 samples obtained at 7 different centers using the same coagulation reagent and instrumentation as [facility]. Currently there are no coagulation studies available worldwide for children to 14 days, and no normal ranges. MRI LSPINE WO CONon 11-20-19 23 MRI [...] by: SAGE LOPEZ Date: 2022-11-19 09:58 Normal [facility] XR ABD FLAT UP_PA Julita 11-08 [...] by: SAGE LOPEZ Date: 2022-11-08 12:23 Normal [facility] XR LSPINE MIN 4 VIEWSon 10-24 [...] by: SAGE LOPEZ Date: 2022-11-08 12:21 Normal [facility] XR WRIST RT MIN 3 Von 2021 XR WRIST RT MIN 3 V EXAM: XR WRIST RT VA N 3 V HISTORY: Wrist joint pain COMPARISON: [...] by: WALTER MCRAE Date: 2022-08-22 11:25 Normal [facility] Vital Signs Date Time Vital Sign Value Performing Clinician Facility 09-01-2024 13:09-0500 Body height 162.6 cm Dewey Herrera DO Work Phone: [facility] 09-01-2024 13:09-0500 Body mass index (BMI) [Ratio] 22.31 kg/m2 Dewey Herrera DO Work Phone: [facility] 09-01-2024 13:09-0500 Body weight 58.97 kg Dewey Herrera DO Work Phone: [facility] 06-19-2024 15:05-0400 Hourly Rounding Miguel NAEEM [facility] 06-19-2024 15:05-0400 Promise to Return Miguel NAEEM [facility] 06-19-2024 14:53-0400 Hourly Rounding Miguel NAEEM [facility] 06-19-2024 14:53-0400 Promise to Return Miguel NAEEM [facility] 06-19-2024 13:53-0400 Hourly Rounding Miguel NAEEM [facility] 06-19-2024 13:53-0400 Promise to Return Miguel NAEEM [facility] 06-19-2024 11:00-0400 Blood Pressure Location Miguel NAEEM [facility] 06-19-2024 11:00-0400 Body temperature 98.78 [degF] Miguel NAEEM [facility] 06-19-2024 11:00-0400 Diastolic blood pressure 66 mm[Hg] Miguel NAEEM [facility] 06-19-2024 11:00-0400 Heart rate 109 /min Miguel NAEEM [facility] 06-19-2024 11:00-0400 Mean blood pressure 78 mm[Hg] Miguel NAEEM [facility] 06-19-2024 11:00-0400 Respiratory rate 18 /min Migueljose MARTINEZSLIN [facility] 06-19-2024 11:00-0400 SaO2% (BldA) [Mass fraction] 91 % Migueljose MARTINEZSLIN [facility] 06-19-2024 11:00-0400 Systolic blood pressure 103 mm[Hg] Migueljose MARTINEZSLIN [facility] 06-19-2024 07:00-0400 Body temperature 97.88 [degF] Migueljose MARTINEZSLIN [facility] 06-19-2024 07:00-0400 Diastolic blood pressure 93 mm[Hg] Migueljose MARTINEZSLIN [facility] 06-19-2024 07:00-0400 Heart rate 102 /min Migueljose MARTINEZSLIN [facility] 06-19-2024 07:00-0400 Mean blood pressure 113 mm[Hg] Migueljose MARTINEZSLIN [facility] 06-19-2024 07:00-0400 SaO2% (BldA) [Mass fraction] 94 % Migueljose MARTINEZSLIN [facility] 06-19-2024 07:00-0400 Systolic blood pressure 154 mm[Hg] Miguel NAEEM [facility] 06-19-2024 04:00-0400 Body temperature 98.06 [degF] Miguel NAEEM [facility] 06-19-2024 04:00-0400 Diastolic blood pressure 79 mm[Hg] Miguel NAEEM [facility] 06-19-2024 04:00-0400 Heart rate 104 /min Miguel NAEEM [facility] 06-19-2024 04:00-0400 Mean blood pressure 97 mm[Hg] Miguel NAEEM [facility] 06-19-2024 04:00-0400 Respiratory rate 20 /min Miguel NAEEM [facility] 06-19-2024 04:00-0400 Systolic blood pressure 134 mm[Hg] Miguel NAEEM [facility] 06-18-2024 15:50-0400 Body temperature 98.24 [degF] Miguel NAEEM [facility] 06-18-2024 15:50-0400 Mean blood pressure 74 mm[Hg] Miguel NAEEM [facility] 06-18-2024 10:24-0400 Body temperature 97.34 [degF] Miguel NAEEM [facility] 06-18-2024 10:24-0400 Mean blood pressure 71 mm[Hg] Miguel NAEEM [facility] 06-18-2024 08:03-0400 Body temperature 97.7 [degF] Miguel NAEEM [facility] 06-18-2024 08:03-0400 Mean blood pressure 75 mm[Hg] Miguel NAEEM [facility] 06-17-2024 17:15-0400 Body temperature 98.06 [degF] Miguel NAEEM [facility] 06-17-2024 17:15-0400 Respiratory rate 12 /min Miguel NAEEM [facility] 06-17-2024 17:05-0400 Respiratory rate 16 /min Miguel HARTLEY [facility] 06-17-2024 17:00-0400 Respiratory rate 10 /min Miguel CARRIZALESLIN [facility] 06-17-2024 16:48-0400 Body temperature 98.24 [degF] Migueljose HARTLEY [facility] 06-16-2024 19:09-0400 Heart rate 101 /min Miguel HARTLEY [facility] 06-16-2024 18:51-0400 Heart rate 113 /min Miguel HARTLEY [facility] Encounters Encounter Date Encounter Type Care Provider Facility Start: 09-09-2024 End: 09-09-2024 Bamboo flowsheet Myron Oh PT Work Phone: [facility] Start: 09-09-2024 End: 09-09-2024 Bamboo flowsheet Myron Oh PT Work Phone: [facility] Start: 09-09-2024 End: 09-09-2024 Admission to same day surgery center Myron Oh PT Work Phone: [facility] Comment on above: Weakness of right hi p (Primary Dx); Status post hip surgery Start: 09-09-2024 End: 09-09-2024 ambulatory Myron Oh PT Work Phone: [facility] Start: 09-01-2024 End: 09-01-2024 Patient encounter procedure Dewey Herrera DO Work Phone: [facility] Comment on above: Status post hip surg park (Primary Dx) Start: 09-01-2024 End: 09-01-2024 ambulatory DEWEY HERRERA Not Available Start: 09-01-2024 End: 09-01-2024 ambulatory DEWEY HERRERA Not Available Start: 07-16-2024 End: 07-16-2024 Patient encounter procedure Dewey Herrera DO Work Phone: [facility] Comment on above: Status post hip surg park (Primary Dx) Start: 07-16-2024 End: 07-16-2024 ambulatory DEWEY HERRERA Not Available Start: 07-16-2024 End: 07-16-2024 ambulatory DEWEY HERRERA Not Available Start: 06-19-2024 End: 06-19-2024 Clinisync Result Encounter Dewey Herrera DO Work Phone: [facility] Unsolicited Start: 06-19-2024 End: 06-19-2024 Clinisync Result Encounter Dewey Herrera DO Work Phone: [facility] Unsolicited Start: 06-18-2024 End: 06-18-2024 Clinisync Result Encounter Dewey Herrera DO Work Phone: [facility] Unsolicited Start: 06-18-2024 End: 06-18-2024 Clinisync Result Encounter Dewey Herrera DO Work Phone: [facility] Unsolicited Start: 06-17-2024 End: 06-18-2024 Clinisync Result Encounter Dewey Herrera DO Work Phone: [facility]solic[facility] Start: 06-17-2024 End: 06-18-2024 Clinisync Result Encounter Dewey Herrera DO Work Phone: [facility] Unsolicited Start: 06-16-2024 End: 06-19-2024 Evaluation and management of inpatient Miguel HARTLEY Facility:[facility] Start: 06-16-2024 End: 06-19-2024 Evaluation and management of inpatient Miguel HARTLEY [facility] Start: 11-19-2022 End: 11-20-[address] MARYAM ALEJANDRA . Facility: Start: 11-08-2022 End: 11-09-[address] MARYAM ALEJANDRA . Facility: Start: 08-22-2022 End: 08-22-[address] MARYAM ALEJANDRA . Facility: Procedures Date Procedure Procedure Detail Performing Clinician Start: 09-01-2024 Radex hip unilateral with pelvis 2-3 views Dewey Herrera DO Work Phone: Start: 07-16-2024 Radex hip unilateral with pelvis 2-3 views Dewey Herrera DO Work Phone: Start: 06-19-2024 [facility] BUN Dewey chang DO Work Phone: Start: 06-19-2024 [facility] CBC W/ AUTO DIFF J sharif Herrera DO Work Phone: Start: 06-18-2024 [facility] CBC W/ AUTO DIFF J sharif Herrera DO Work Phone: Start: 06-18-2024 Open reduction of fracture with internal fixation Miguel NAEEM Start: 06-17-2024 UA WITH CULT RFLX Dewey Herrera DO Work Phone: Plan of Treatment Date Care Activity Detail Author Start: 11-03-2024 End: 11-03-2024 Patient encounter procedure 11/03/2024 1:15 PM EDT Office Visit [facility] [address] [place] [address] Dewey Herrera, [address] [place] [address] [facility] Start: 09-14-2024 End: 09-14-2024 ambulatory 09/14/2024 1:00 PM EST Treatment [facility] [address] [facility] [address] [place] [id number] Kenny Ferraro PTA [facility] Start: 09-09-2024 End: 09-09-2024 Admission to same day surgery center 09/09/2024 1:00 PM EST Evaluation [facility] [address] [place] [address] [place] [address] Myron Oh, PT [address] [place] [address] [place] [address] Status post hip surgery [facility] Comment on above: Status post hip surg park Start: 09-09-2024 End: 09-09-2024 ambulatory 09/09/2024 1:00 PM EST Evaluation [facility] [address] [place] [place] [address] Myron Oh, PT [address] [place] [place] [address] [facility] Start: 09-01-2024 End: 09-01-2024 Patient encounter procedure 09/01/2024 1:30 PM EST Office Visit [facility] [address] [place] [id number] Dewey Herrera DO [address] [place] [address] [facility] Payers Date Payer Category Payer Private Health Insurance [employer] [id number] 2008 Medicare MEDICARE [id number] 1959 Medicare [id number] 1959 Unknown [id number] 1941 Unknown [id number] .593 1941 Unknown [id number] [id number] .593 1941 Unknown [id number] [id number] .593 1941 Unknown [id number] [id number] .727 1941 Unknown [id number] [id number] .727 1941 Unknown [id number] [id number] .1259 1941 Unknown [id number] [id number] .1259 1941 Unknown [id number] [id number] .1259 1941 Unknown [id number] [id number] .1259 1941 Unknown [id number] [id number] .1259 Social History Date Type Detail Facility Start: 07-16-2024 [facility] Start: 1940 Sex assigned at Not on file [facility] Gender identity Not on file [facility] Tobacco [facility] Comment on above: denies Tobacco smoking status No Smokin g Status Entered [facility] Start: 07-16-2024 End: 09-01-2024 Alcoholic beverage intake Ex-drinker (finding) [facility] Medical Equipment Procedure Code Equipment Code Equipment Origin al Text Equipment Identifier Dates HIP FRACTURE DIAMOND F Dewey Herrera DO 06/17/24 Unknown Hip R FDA Start: 06-17-2024 HIP FRACTURE DIAMOND F Dewey Herrera DO 06/17/24 Unknown Hip R FDA Start: 06-17-2024 HIP FRACTURE DIAMOND F Dewey Herrera DO 06/17/24 Unknown Hip R FDA Start: 06-17-2024 Functional Status Date Assessment Result Facility 06-16-2024 Functional Status N/A [facility] 06-16-2024 Functional Status [facility] Clinical Notes 11-08-2022 to 09-01-2024 Deweywillem Herrera - 09/01/2024 1:30 PM ESTPauliewillem Herrera - 07/16/2024 1:15 PM EST Note Date & Type Note Facility 09-01-2024 History of Present illness Narrative Images from the original note were not included. @[email or web address]@ Dee Rakesh Ole is a 83 y.o. female who presents for Post-op of the Right Hip (N 06/17/24) HPI: History of Present Illness The patient is an 83-year-old female who is 11 weeks status post intramedullary nailing of the right hip, with surgery performed on 06/17/2024. Family member is present. She returned home the day after her last follow up visit. She reports satisfactory ambulation without the need for a cane. However, she experiences difficulty sleeping due to discomfort in the area of the surgical hardware, which she wishes to have removed. 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 Approximately one week ago, she began experiencing a sensation sampson to sitting on a cactus plant, specifically in the region of her ischial tuberosity. This discomfort is accompanied by a qdhs-sqf-wwkkpat sensation, which is exacerbated when seated. She has no history of lower back issues, except for an incident involving a fall from a horse. She has not undergone any back surgeries. She is not diabetic. She was previously prescribed prednisone but discontinued its use after taking only one dose due to concerns about potential side effects. She reports no adverse reactions to the medication. She has been hospitalized twice for pneumonia. She also reports issues with her tailbone, which has been causing discomfort over the past few weeks. She recently purchased a new chair, which has improved her sitting tolerance. SUBJECTIVE: MEDICATIONS: Current Outpatient Medications Medication Instructions ascorbic acid (VITAMIN C) 500 mg, Daily aspirin 81 mg diphenhydrAMINE (BENADryl) 12.5 MG/5ML elixir Take by mouth DSS 100 mg ferrous sulfate 325 mg, Daily with breakfast loratadine (CLARITIN REDITABS) 10 mg, Daily pantoprazole (PROTONIX) 40 mg traMADol (ULTRAM) 50 mg, Nightly PRN ALLERGIES: Allergies Allergen Reactions Salicylates Other Reaction(s): GI Upset Cat Dander Other Reaction(s): Other: See Comments rhinitis and watery eyes Sulfites Rash RASH Caffeine Other Reaction(s): Unknown SURGICAL HISTORY: Past Surgical History: Procedure Laterality Date INTERTROCHANTERIC HIP FRACTURE SURGERY Right 06/17/2024 [facility] REVIEW OF SYMPTOMS: The review of systems, history and current medications list are all reviewed today. OBJECTIVE: Visit Vitals Ht 5' 4 Wt 130 lb BMI 22.31 kg/m Smoking Status Unknown BSA 1.63 m Physical Exam The patient is ambulating with a cane. Incisions in the right hip are benign and well healed. There is no swelling, no erythema. She has a tight IT band. There is 5 out of 5 flexion and extension strength of the knee. No effusion at the knee. 5 out of 5 plantarflexion, dorsiflexion of the ankle. There is no swelling of the thigh and leg. She has 5 out of 5 hip flexion. Preserved range of motion of the right hip. Results Imaging AP pelvis, lateral right hip(s) taken today and saved to the permanent medical record. X-rays show the hardware is intact. The fracture appears to be healing appropriately. There are no avascular changes to the femoral head. Lag screw is not prominent at insertion site. ASSESSMENT AND PLAN: I reviewed the history, physical exam, diagnostic studies, and diagnosis with the patient. Assessment & Plan 1. Postoperative status following intramedullary nailing of the right hip. She is 11 weeks post-surgery. The hardware is not causing irritation as it is not protruding and is adequately covered by tissue. The lateral discomfort is likely due to scarring and tightening of the soft tissues overlying the surgical site. A referral for physical therapy will be initiated. She is advised to use a rolling pin or massage roller to gradually desensitize the area. 2. Sciatic nerve irritation. She reports a djpn-baw-nbptzjg sensation in her buttock when sitting, likely due to irritation of the sciatic nerve. She is advised to use an ischial tuberosity pillow or a donut pillow to alleviate pressure on the affected area. Physical therapy will also address this issue with specific stretching exercises. 3. Arthritis. She has a history of arthritis and was previously on meloxicam. She reports cracking in her shoulders and neck. She is advised to consider resuming meloxicam for arthritis management. She should consult with her primary care regarding the continuation of this medication. Follow-up The patient will follow up in 2 months for a repeat x-ray. Diagnoses and all orders for this visit: Status post hip surgery - XR hip right 2 or 3 views - Ambulatory referral to Physical Therapy; Future Dewey Herrera D.O. Attestation This note was created using voice recognition through [email or web address]. documented in this encounter [facility] 07-16-2024 History of Present illness Narrative Images from the original note were not included. @EVELYNE@ Dee Handy is a 83 y.o. female who presents for No chief complaint on file. HPI: History of Present Illness 4 weeks s/p IMN right hip. DOS 06/17/2024 The patient is an 83-year-old female here today to follow up on her right hip. She is accompanied by an adult female. She reports that she has been residing in a facility for the past 4 weeks, with today being her final day. She expresses dissatisfaction with the quality of sleep she has been getting due to the uncomfortable beds at the facility. She mentions that she is able to walk a considerable distance with the aid of a walker. She also notes that the removal of her meri was a painful experience. SUBJECTIVE: MEDICATIONS: No current outpatient medications ALLERGIES: Not on File SURGICAL HISTORY: No past surgical history on file. REVIEW OF SYMPTOMS: The review of systems, history and current medications list are all reviewed today. OBJECTIVE: There were no vitals taken for this visit. Physical Exam RIGHT HIP Incisions well healed. No swelling. No erythema. Strong hip flexion and adduction. Mild weakness 4/5 with abduction. Minimal pain with passive ROM of hip. Negative homans. Foot well perfused. Ankle PF/DF and knee flexion/extension strong Results AP pelvis, lateral right hip(s) taken today and saved to the permanent medical record. Fracture in satisfactory position with early signs of healing. Hardware intact. No avascular changes. ASSESSMENT AND PLAN: I reviewed the history, physical exam, diagnostic studies, and diagnosis with the patient. Assessment & Plan 4 weeks s/p IMN right hip She was advised to continue using the walker until she feels comfortable enough to transition to a cane. It is recommended to continue therapy, either at an outpatient facility or at home, to aid in her recovery. An x-ray will be taken in 6 weeks to monitor the healing process. She is supposed to be discharged home from SNF today. Follow-up Return in 6 weeks for follow up. There are no diagnoses linked to this encounter. Dewey Herrera D.O. Attestation This note was created using voice recognition through [employer] artificial intelligence. documented in this encounter [facility] 06-22-2024 Note Progress Note-Stacia aponte Patient: DEE HANDY Age: 83 years Sex: Female : 1940 Associated Diagnoses: None Author: MD Yang, Santiago hCaidez Postoperative Information Postoperative disposition: Postoperative disposition: To PACU. Optimetrix number: Optimetrix number [id number]. Anesthetic utilized: General. Health Status Allergies: Allergic Reactions (Selected) No Known Medication Allergies Physical Examination VS/Measurements Pain Assessment: Controlled. General: Awake, Alert, Appropriate. Respiratory: Adequate air exchange. Cardiovascular: Stable, Normal peripheral perfusion. Neurological: Normal sensory function, Normal motor function. Assessment Anesthetic outcome No anesthetic complications noted. Adequate pain relief. able to void without difficulty, able to ambulate with assist, tolerating PO intake, no N/V. Review / Management Condition: Stable. Plan Transfer/Discharge: Transfer/Discharge Discharge when meets criteria ( To home ). [facility] Comment on above: Result Comment: Elec tronically Signed By: MD Al Ahmad F\.br\Date and Time Signed: 06/22/24 06:35 EDT 06-22-2024 Note Progress Note-Physic fadi Patient: DEE HANDY Age: 83 years Sex: Female : 1940 Associated Diagnoses: None Author: MD Al Ahmad F Preoperative Information Time patient last ate or drank:=== (npo 8 hours) Anesthesia history: Patient history: No prior anesthesia problems. Re-evaluation prior to induction: Completed, Initial evaluation reviewed. Review of Systems Respiratory: No shortness of breath. Cardiovascular: No chest pain. Hematology/Lymphatics: No bruising tendency, No bleeding tendency. Health Status Allergies: Allergic Reactions (All) No Known Medication Allergies Current medications: (Selected) Prescriptions Prescribed aspirin 81 mg Oral EC Tab: 81 mg = 1 tab(s), Oral, Daily, # 30 tab(s), Refills(s) 0 oxyCODONE 5 mg Tab: 5 mg = 1 tab(s), Oral, q4hr, PRN Pain 8-10, X 3 day(s), # 10 tab(s), Refills(s) 0 Documented Medications Documented Pantoprazole [address] Tab: 40 mg = 1 tab(s), Oral, Daily, Refills(s) 0 ascorbic acid 500 mg Tab: 500 mg = 1 tab(s), Oral, BIDWM, Refills(s) 0 docusate sodium 100 mg Cap: 100 mg = 1 cap(s), Oral, BID, Refills(s) 0 ferrous sulfate 325 mg Tab: 325 mg = 1 tab(s), Oral, BIDWM, Refills(s) 0 Problem list: All Problems At risk for falls / SNOMED CT [id number] / Possible Problem added when Risk for Falls Careplan was initiated. Histories Past Medical History: No active or resolved past medical history items have been selected or recorded. Family History: No family history items have been selected or recorded. Procedure history: Open reduction and internal fixation of fracture HIP ([id number]) on 06/18/2024 at 83 Years. Social History Social & Psychosocial Habits Alcohol Comment: denies - 06/16/2024 19:00 - Devon Contreras RN 06/17/2024 Risk Assessment: Denies Alcohol Use Substance Abuse 06/17/2024 Risk Assessment: Denies Substance Abuse Comment: denies - 06/16/2024 19:00 - Devon Contreras RN Tobacco 06/17/2024 Risk Assessment: Denies Tobacco Use Comment: denies - 06/16/2024 19:00 - Devon Contreras RN . Physical Examination Please see preop flow sheet Airway: Mallampati classification: II (soft palate, fauces, uvula visible). Respiratory: Lungs are clear to auscultation. Cardiovascular: Normal rate, Regular rhythm. Neurologic: Alert. Review / Management Results review Interpretation of Outside Results Chest x-ray results Radiology results ECG interpretation Condition Plan [place] Society [employer] Anesthesiologists (ASA) physical status classification: Class III. Anesthetic Preoperative Plan Anesthesia: General. . Anesthetic plan, risks, benefits, and alternatives discussed with the patient and/or family. Risks discussed: nausea, vomiting, headache, sore throat, dental injury, serious complications. Patient verbalized understanding. Communication: face to face with patient 5 minutes. [facility] Comment on above: Result Comment: Elec tronically Signed By: MD Yang, Santiago Chaidez\.br\Date and Time Signed: 06/22/24 06:34 EDT 06-21-2024 Note Discharge Summary Admission and Discharge Information Admit Date/Time:06/16/2024 21:01 Admitting Physician - Miguel HARTLEY DO Admitting Diagnoses: Discharge Diagnoses 1. Hip fracture, right, 06/17/2024 2. Accidental fall, 06/16/2024 3. History of CVA in adulthood, 06/17/2024 4. Hypokalemia, 06/17/2024 5. Osteoarthritis, 06/17/2024 Fall, 06/16/2024 Hip pain-swelling, 06/16/2024 Procedure History Open reduction and internal fixation of fracture (06/18/2024). Hospital Course 83-year-old female presented to the ER with a complaint of fall and patient was ultimately found to have a right hip fracture. For more information please see admission H&P. Ortho was consulted and placement went through intramedullary nailing placement. Patient was started on rehab and pain was controlled. PT OT recommended intermediate facility. Once patient was accepted patient was discharged for further rehab. Physical Exam Please see daily progress note. Tests Performed CT C-Spine w/o Contrast CT Head or Brain w/o Contrast XR Chest Single View XR Hip 2-3 Views Right XR Hip 2-3 Views Right + Pelvis Discharge Plan Discharge Disposition Discharge To, Anticipated II - Halfway Unit Discharged to - shelter unit Discharge Medication List Prescriptions aspirin 81 mg Oral EC Tab, 81 mg= 1 tab(s), Oral, Daily oxyCODONE 5 mg Tab, 5 mg= 1 tab(s), Oral, q4hr, PRN Home ascorbic acid 500 mg Tab, 500 mg= 1 tab(s), Oral, BIDWM docusate sodium 100 mg Cap, 100 mg= 1 cap(s), Oral, BID ferrous sulfate 325 mg Tab, 325 mg= 1 tab(s), Oral, BIDWM Pantoprazole [address] Tab, 40 mg= 1 tab(s), Oral, Daily Follow-up With When Contact Information Dewey Herrera Within 4 weeks [address] [id number] (1) Additional Instructions: Call for followup appointment Patient Education Fall Prevention in the Home, Adult, Mpus-qt-Mrhl [facility] Comment on above: Result Comment: Elec tronically Signed By: Ashutosh RUSS, Alejandro Chino\.br\Date and Time Signed: 06/21/24 11:50 EDT 06-19-2024 Hospital Discharge instructions Patient Education 06/19/2024 13:36:44 Fall Prevention in the Home, Adult, Lhsw-uq-Lkyx Fall Prevention in the Home, Adult Falls can cause injuries and can happen to people of all ages. There are many things you can do to make your home safer and to help prevent falls. What actions can I take to prevent falls? General information Use good lighting in all rooms. Make sure to: ?Replace any light bulbs that burn out. ?Turn on the lights in dark areas and use night-lights. Keep items that you use often in gsrs-bh-csloa places. Lower the shelves around your home if needed. Move furniture so that there are clear paths around it. Do not use throw rugs or other things on the floor that can make you trip. If any of your floors are uneven, fix them. Add color or contrast paint or tape to clearly keith and help you see: ?Grab bars or handrails. ?First and last steps of staircases. ?Where the edge of each step is. If you use a ladder or stepladder: ?Make sure that it is fully opened. Do not climb a closed ladder. ?Make sure the sides of the ladder are locked in place. ?Have someone hold the ladder while you use it. Know where your pets are as you move through your home. What can I do in the bathroom? Keep the floor dry. Clean up any water on the floor right away. Remove soap buildup in the bathtub or shower. Buildup makes bathtubs and showers slippery. Use non-skid mats or decals on the floor of the bathtub or shower. Attach bath mats securely with double-sided, non-slip rug tape. If you need to sit down in the shower, use a non-slip stool. Install grab bars by the toilet and in the bathtub and shower. Do not use towel bars as grab bars. What can I do in the bedroom? Make sure that you have a light by your bed that is easy to reach. Do not use any sheets or blankets on your bed that hang to the floor. Have a firm chair or bench with side arms that you can use for support when you get dressed. What can I do in the kitchen? Clean up any spills right away. If you need to reach something above you, use a step stool with a grab bar. Keep electrical cords out of the way. Do not use floor urdu or wax that makes floors slippery. What can I do with my stairs? Do not leave anything on the stairs. Make sure that you have a light switch at the top and the bottom of the stairs. Make sure that there are handrails on both sides of the stairs. Fix handrails that are broken or loose. Install non-slip stair treads on all your stairs if they do not have carpet. Avoid having throw rugs at the top or bottom of the stairs. Choose a carpet that does not hide the edge of the steps on the stairs. Make sure that the carpet is firmly attached to the stairs. Fix carpet that is loose or worn. What can I do on the outside of my home? Use bright outdoor lighting. Fix the edges of walkways and driveways and fix any cracks. Clear paths of anything that can make you trip, such as tools or rocks. Add color or contrast paint or tape to clearly keith and help you see anything that might make you trip as you walk through a door, such as a raised step or threshold. Trim any bushes or trees on paths to your home. Check to see if handrails are loose or broken and that both sides of all steps have handrails. Install guardrails along the edges of any raised decks and porches. Have leaves, snow, or ice cleared regularly. Use sand, salt, or ice melter on paths if you live where there is ice and snow during the winter. Clean up any spills in your garage right away. This includes grease or oil spills. What other actions can I take? Review your medicines with your doctor. Some medicines can cause dizziness or changes in blood pressure, which increase your risk of falling. Wear shoes that: ?Have a low heel. Do not wear high heels. ?Have rubber bottoms and are closed at the toe. ?Feel good on your feet and fit well. Use tools that help you move around if needed. These include: ?Canes. ?Walkers. ?Scooters. ?Crutches. Ask your doctor what else you can do to help prevent falls. This may include seeing a physical therapist to learn to do exercises to move better and get stronger. Where to find more information Centers for Disease Control and Prevention, [place]: cdc.gov National [place] on Aging: cristopher.nih.gov National [place] on Aging: cristopher.nih.gov Contact a doctor if: You are afraid of falling at home. You feel weak, drowsy, or dizzy at home. You fall at home. Get help right away if you: Lose consciousness or have trouble moving after a fall. Have a fall that causes a head injury. These symptoms may be an emergency. Get help right away. Call 911. Do not wait to see if the symptoms will go away. Do not drive yourself to the hospital. This information is not intended to replace advice given to you by your health care provider. Make sure you discuss any questions you have with your health care provider. Document Revised: 04/15/2023 Document Reviewed: 04/15/2023 [employer] Patient Education 2023 [employer]. Follow Up Care 06/16/2024 18:48:39 With:Dewey Herrera Address: [address] [place] [address] [place] [address] Business (1) When:4 weeks Comments:Call for followup appointment [facility] 06-19-2024 Evaluation + Plan note Extrac harshil from: Title:APSO Note Author:Alejandro Boykin MD Date: 1. Hip fracture, right (S72. 001A: Fracture of unspecified part of neck of right femur, initial encounter for closed fracture) Right hip fracture after mechanical fall. Per ortho notes, pathologic fx secondary to osteoporosis Intramedullary nailing, right hip 06/17/[address] Dewey Herrera Perioperative IV Cefazolin Pain Management Lovenox while inpatient, per ortho- change to asa 81 mg x 30 days on DC PT/OT recommending SNF [1] Pain is well controlled. No issues at this time. Ordered: Sbsq Hospital Care/Day Moderate 35 Minutes 07383 2. Accidental fall (W19.XXXA: Unspecified fall, initial encounter) PT/OT Recommending SNF Ordered: Sbsq Hospital Care/Day Moderate 35 Minutes 29292 3. History of CVA in adulthood (Z86.73: Personal history of transient ischemic attack (TIA), and cerebral infarction without residual deficits) No new issues Ordered: Sbsq Hospital Care/Day Moderate 35 Minutes 46747 4. Hypokalemia (E87.6: Hypokalemia) Resolved Ordered: Sbsq Hospital Care/Day Moderate 35 Minutes 58032 5. Osteoarthritis (M19.90: Unspecified osteoarthritis, unspecified site) As above. Ordered: Sbsq Hospital Care/Day Moderate 35 Minutes [id number] Extracted from: Title:APSO Note Author:Vickie Mckoy CNP Date:06/18/24 1. Hip fracture, right (S72. 001A: Fracture of unspecified part of neck of right femur, initial encounter for closed fracture) Right hip fracture after mechanical fall. Per ortho notes, pathologic fx secondary to osteoporosis Intramedullary nailing, right hip 06/17/[address] Dewey Herrera Perioperative IV Cefazolin Pain Management Lovenox while inpatient, per ortho- change to asa 81 mg x 30 days on DC PT/OT recommending SNF 2. Accidental fall (W19.XXXA: Unspecified fall, initial encounter) PT/OT recommending SNF on DC See above 3. History of CVA in adulthood (Z86.73: Personal history of transient ischemic attack (TIA), and cerebral infarction without residual deficits) No new neurologic issues 4. Hypokalemia (E87.6: Hypokalemia) Replaced, resolved Trend BMP 5. Osteoarthritis (M19.90: Unspecified osteoarthritis, unspecified site) See above Orders: Basic Metabolic Panel eGFR Patient remains in-patient status as we await placement to SNF post operatively FULL CODE DVT Prophylaxis: Lovenox Extracted from: Title:ORTHO Consult Author:Dewey Herrera DO Antolin e:06/17/24 Impression and Plan 83-year-old female with a displaced intertrochanteric fracture, right hip. Pathologic fracture secondary to osteoporosis. I reviewed the history, physical exam, radiographs, and diagnosis with the patient. Recommendation is made for operative invention to decrease the patient s morbidity and mortality compared to conservative treatment. We will proceed with intramedullary nailing of the right hip later today. Continue n.p.o. status. I reviewed the risks, benefits, complications, and expectations of surgery. The risks include, but are not limited to, the risk of anesthesia, infection, neurovascular injury, DVT, PE, and . I explained that patients often do not return to the previous level of function following a hip fracture. Will monitor her low back pain and may need to take dedicated x-rays of the lumbar spine during this admission. Thank you for the consultation. A total of 45-59 minutes was spent on this patient encounter including chart review, history taking, physical exam, diagnostic study review, patient counseling and discussion, entering information into the patient s medical record, and coordinating care. Extracted from: Title:Admission H & P Author:Miguel HARTLEY DO Date:06/17/24 1. Hip fracture, right (S72. 001A: Fracture of unspecified part of neck of right femur, initial encounter for closed fracture) Per discussion with Dr. Craig in the emergency department Case was discussed with Dr. Dewey Herrera patient had been kept n.p.o. after midnight with anticipation of operative intervention. After evaluation of the patient I feel that the benefits of surgery if recommended by the orthopedic service weighs any perioperative risks. Have been using low-dose Dilaudid which improves her pain, will also make available as she is on Mobic for osteoarthritis ketorolac. Note patient states she had black stool the other day but states I did not realize that Pepto-Bismol can make her stools black . Hemoglobin is stable 2. Accidental fall (W19.XXXA: Unspecified fall, initial encounter) Patient describes a mechanical fall 3. History of CVA in adulthood (Z86.73: Personal history of transient ischemic attack (TIA), and cerebral infarction without residual deficits) Patient states she had a remote cerebrovascular accident which impacted her left leg. Curiously CT scan suggest small round remote infarct in left cerebellar hemisphere. She denies any focal motor or sensory deficits since that event. Will check lipid panel note when pain is controlled her blood pressure is within normal limits i.e. 127/76 Ordered: Lipid Panel 4. Hypokalemia (E87.6: Hypokalemia) She denies any vomiting or diarrhea. She is not on a diuretic. She did state that her primary care physician had treated her in the past for hypokalemia. Will monitor during her hospitalization. As patient is n.p.o. I did ask for a potassium bolus. Will repeat potassium after the bolus will check serum magnesium. Note I did attempt to order it telemetry but the system would not allow for it. Patient denies any arrhythmia did not have any lightheadedness prior to the fall it is likely that with potassium supplementation this will normalize and her risk for arrhythmia which is not elevated at this time will further decline. Ordered: Magnesium Level 5. Osteoarthritis (M19.90: Unspecified osteoarthritis, unspecified site) See above patient was taking Mobic at home in light of her recent hip fracture will order as needed ketorolac monitor hemoglobin Orders: HYDROmorphone, 0.5 mg = 0.5 mL, Injection, IV Push, q4hr PRN Pain, Routine, Start date 06/17/24 4:03:00 EDT, 06/17/24 4:03:00 EDT ketorolac, 15 mg = 1 mL, Injection, IV Push, q6hr PRN Pain for 5 day(s), Stop date 06/22/24 5:33:00 EDT, Routine, Start date 06/17/24 5:34:00 EDT, 06/17/24 5:34:00 EDT ondansetron, 4 mg = 2 mL, Injection, IV Push, q6hr PRN Nausea, Routine, Start date 06/17/24 5:51:00 EDT, 06/17/24 5:51:00 EDT potassium chloride + Generic Diluent 100 mL, 20 mEq = 100 mL, Soln-IV, IV Piggyback, Once, Stop date 06/17/24 5:00:00 EDT, Routine, Start date 06/17/24 5:00:00 EDT, 50 mL/hr, Infuse over 2 hour(s) Sodium Chloride 0.9% intravenous solution 250 mL, 250 mL, IV, 20 mL/hr, Other (see comment), Routine, Start date 06/17/24 4:08:00 EDT, 12.5 hour(s), Total volume (mL): 250, 58.5 kg, 1.64, m2 Basic Metabolic Panel Bedrest CBC w/ Auto Diff Education Fall Risk Notify Provider Vital Signs Notify Provider Vital Signs NPO Diet Precautions Resuscitation Status - Full Vital Signs Weight Patient is admitted as general inpatient with the anticipation she will require greater than 2 midnight stay Extracted from: Title:ED Note Author:Mic Craig DO Date:1 Accidental fall (W19.XXXA: U nspecified fall, initial encounter) Hip fracture (S72.009A: Fracture of unspecified part of neck of unspecified femur, initial encounter for closed fracture) Orders: HYDROmorphone, 0.5 mg = 0.5 mL, Injection, IV Push, Once, Stop date 06/16/24 18:55:00 EDT, STAT, Start date 06/16/24 18:55:00 EDT, 06/16/24 18:55:00 EDT ABO/Rh ABO/Rh History Check Antibody Screen Basic Metabolic Panel Blood Bank ID# CBC w/ Auto Diff Consult to Orthopedics CT Head or Brain w/o Contrast CT Spine Cervical w/o Contrast Drug Screen Urine ECG 12 Lead Adult ED Cardiac Monitoring ED Physician consult Hospitalist for continued care eGFR Ethanol Level Extra SST Tube Hepatic Function Panel Lactic Acid Lipase Level NPO Diet Oxygen Therapy PT & PTT Pulse Oximetry Continuous Saline Lock Insert Troponin UA with Cult Rflx XR Chest Single View XR Hip 2-3 Views Right + Pelvis [facility] 10-25-2024 NoteProgress Note-Physician Assessment/Plan 1. Hip fracture, right (S72.001A: Fracture of unspecified part of neck of right femur, initial encounter for closed fracture) Right hip fracture after mechanical fall. Per ortho notes, pathologic fx secondary to osteoporosis Intramedullary nailing, right hip 06/17/[address] Dewey Herrera Perioperative IV Cefazolin Pain Management Lovenox while inpatient, per ortho- change to asa 81 mg x 30 days on DC PT/OT recommending SNF [1] Pain is well controlled. No issues at this time. Ordered: [facility] Hospital Care/Day Moderate 35 Minutes 56557 2. Accidental fall (W19.XXXA: Unspecified fall, initial encounter) PT/OT Recommending SNF Ordered: [facility] Hospital Care/Day Moderate 35 Minutes 11931 3. History of CVA in adulthood (Z86.73: Personal history of transient ischemic attack (TIA), and cerebral infarction without residual deficits) No new issues Ordered: [facility]Day Moderate 35 Minutes 25159 4. Hypokalemia (E87.6: Hypokalemia) Resolved Ordered: [facility] Hospital Care/Day Moderate 35 Minutes 12568 5. Osteoarthritis (M19.90: Unspecified osteoarthritis, unspecified site) As above. Ordered: [facility] Hospital Care/Day Moderate 35 Minutes 71460 Subjective Patient seen and examined at bedside. No complaints today. Patient states pain is tolerable. Patient states that its less than a 5. Objective Vitals & Measurements T: 36.6 ???C(Oral) TMIN: 36.3 ???C(Axillary) TMAX: 36.8 ???C(Axillary) HR: 102(Monitored) RR: 18 BP: 154/93 SpO2: 94% HT: 165 cm WT: 61.1 kg Intake & Output This visit (24 hour periods starting at 07:00 EDT) 06/19/24 * 06/18/24 06/17/24 Total Summary Intake mL -- 1,662.44 1,017.3 Output mL -- 1,000 1,450 Fluid Balance -- 662.44 -432.7 Intake (9) Generic Diluent, acetaminophen mL -- 201.44 190.69 Generic Diluent, tranexamic acid mL -- -- 100 Lactated Ringers Injection 1,000 mL mL -- -- 50 Oral Intake mL -- 1,460 550 Sodium Chloride 0.9% intravenous solution 100 mL mL -- -- 13.1 Sodium Chloride 0.9%, cefazolin mL -- -- 110.01 hydromorphone mL -- -- 0.5 ketorolac mL -- 1 1 ondansetron mL -- -- 2 Total -- 1,662.44 1,017.3 Output (2) Urine Catheter mL -- 100 350 Urine Voided mL -- 900 1,100 Total -- 1,000 1,450 Counts (2) Stool Count -- 1 2 Urine Count -- 1 -- * This column has not completed the indicated time period. Physical Exam General: alert, no acute distress ENMT: oral mucosa moist, Cardiovascular: regular rate and rhythm, normal peripheral perfusion Respiratory: Lungs CTA, respirations non labored Extremities: no deformity, no trauma, R side hip C/D/I Neurological: oriented x 4, LOC appropriate for age, CN II-XII intact, motor strength equal & normal bilaterally, speech normal Abdomen: Soft, Nontender, Non-distended, + BS Lab Results WBC: 9 E9/L (06/19/24 04:59:00) RBC: 3.5 E12/L Low (06/19/24 04:59:00) HGB: 10.7 gm/dL Low (06/19/24 04:59:00) Hct: 31.5 % Low (06/19/24 04:59:00) MCV: 88.9 fL (06/19/24 04:59:00) MCH: 30.3 pg (06/19/24 04:59:00) MCHC: 34 gm/dL (06/19/24 04:59:00) RDW: 14.7 % High (06/19/24 04:59:00) Platelet: 326 E9/L (06/19/24 04:59:00) MPV: 7.4 fL (06/19/24 04:59:00) Neutro Auto: 66.3 % (06/19/24 04:59:00) Lymph Auto: 20.1 % (06/19/24 04:59:00) Dougherty Auto: 9.7 % (06/19/24 04:59:00) Eos Auto: 3 % (06/19/24 04:59:00) Basophil Auto: 0.9 % (06/19/24 04:59:00) Neutro Absolute: 6 E9/L (06/19/24 04:59:00) Lymph Absolute: 1.8 E9/L (06/19/24 04:59:00) Dougherty Absolute: 0.9 E9/L (06/19/24 04:59:00) Eos Absolute: 0.3 E9/L (06/19/24 04:59:00) Basophil Absolute: 0.1 E9/L (06/19/24 04:59:00) BUN: 15 mg/dL (06/19/24 04:59:00) Creatinine: 0.6 mg/dL (06/19/24 04:59:00) eGFR: 89 mL/min/1.73 m2 (06/19/24 04:59:00) Sodium Lvl: 136 mmol/L (06/19/24 04:59:00) Potassium Lvl: 4.1 mmol/L (06/19/24 04:59:00) Chloride: 104 mmol/L (06/19/24 04:59:00) CO2: 27 mmol/L (06/19/24 04:59:00) AGAP: 9 mEq/L (06/19/24 04:59:00) Problem List/Past Medical History Ongoing No qualifying data Historical No qualifying data Medications Inpatient acetaminophen additive + Generic Diluent 100 mL benzocaine-menthol topical 6 mg-10 mg Loze, 1 lozenge(s), Oral, q4hr, PRN Colace 100 mg Cap, 100 mg= 1 cap(s), Oral, BID Dilaudid 1 mg/mL injectable solution, 0.5 mg= 0.5 mL, IV Push, q4hr, PRN Dulcolax 5 mg Tab-EC, 10 mg= 2 tab(s), Oral, Daily, PRN ferrous sulfate 325 mg Tab, 325 mg= 1 tab(s), Oral, BIDWM Lactated Ringers IV Alka 1000 mL 1,000 mL, 1000 mL, IV Lovenox 30 mg/0.3 mL SC Alka, 30 mg= 0.3 mL, SubCutaneous, Daily Milk of Magnesia 8% Susp-Oral, 30 mL, Oral, BID, PRN oxyCODONE 5 mg Tab, 5 mg= 1 tab(s), Oral, q4hr, PRN oxyCODONE 5 mg Tab, 10 mg= 2 tab(s), Oral, q4hr, PRN Pantoprazole [address] Tab, 40 mg= 1 tab(s), Oral, Daily Vitamin C 500 mg Tab, 500 (more content not included)...[facility]:Result Comment: Electronically Signed By: Alejandro Boykin MD\.br\Date and Time Signed: 06/19/24 10:04 [id number] NoteProgress Note-Physician PATIENT UPDATE Patient admitted this morning- see Dr Naeem Hernandez. Seen by ortho with plans for OR later today. Pre op orders in. Patient reports pain to be controlled. Offers no complaints/concerns. Afebrile, on RA, VSS and labswith normalized K+ levels. Labs for am ordered.[facility] on above:Result Comment: Electronically Signed By: Maricel Mckoy CNP\.br\Date and Time Signed: 06/17/24 10:57 EDT\.br\Electronically Co-Signed By: Chapo RUSS, Liang Chino\.br\Date and Time Co-Signed: 06/18/24 16:02 [id number] NoteProgress Note-Physician Basic Information 83 year old female with osteoarthritis admitted with right hip fracture after fall at home, now s/pR hip IMN Assessment/Plan 1. Hip fracture, right (S72.001A: Fracture of unspecified part of neck of right femur, initial encounter for closed fracture) Right hip fracture after mechanical fall. Per ortho notes, pathologic fx secondary to osteoporosis Intramedullary nailing, right hip 06/17/[address] Dewey Herrera Perioperative IV Cefazolin Pain Management Lovenox while inpatient, per ortho- change to asa 81 mg x 30 days on DC PT/OT recommending SNF 2. Accidental fall (W19.XXXA: Unspecified fall, initial encounter) PT/OT recommending SNF on DC See above 3. History of CVA in adulthood (Z86.73: Personal history of transient ischemic attack (TIA), and cerebral infarction without residual deficits) No new neurologic issues 4. Hypokalemia (E87.6: Hypokalemia) Replaced, resolved Trend BMP 5. Osteoarthritis (M19.90: Unspecified osteoarthritis, unspecified site) See above Orders: Basic Metabolic Panel eGFR Patient remains in-patient status as we await placement to SNF post operatively FULL CODE DVT Prophylaxis: Lovenox Subjective Tolerated surgery. Pain is controlled. VSS. No N/V/D. + Flatus. Costa DCd Review of Systems Additional ROS info: Except as noted in the above Review of Systems and in the History of Present Illness all other systems have been reviewed and are negative or noncontributory Objective Vitals & Measurements T: 36.3 ???C(Axillary) TMIN: 36.2 ???C(Oral) TMAX: 36.8 ???C(Temporal Artery) HR: 91(Monitored) RR:16 BP: 99/58 SpO2: 92% WT: 63.1 kg Intake & Output This visit (24 hour periods starting at 07:00 EDT) 06/18/24 * 06/17/24 06/16/24 Total Summary Intake mL 241 1,017.3 142.9 Output mL 100 1,450 -- Fluid Balance 141 -432.7 142.9 Intake (10) Generic Diluent, acetaminophen mL -- 190.69 -- Generic Diluent, potassium chloride mL -- -- 90.9 Generic Diluent, tranexamic acid mL -- 100 -- Lactated Ringers Injection 1,000 mL mL -- 50 -- Oral Intake mL 240 550 50 Sodium Chloride 0.9% intravenous solution 100 mL mL -- 13.1 -- Sodium Chloride 0.9%, cefazolin mL -- 110.01 -- hydromorphone mL -- 0.5 1 ketorolac mL 1 1 1 ondansetron mL -- 2 -- Total 241 1,017.3 142.9 Output (2) Urine Catheter mL 100 350 -- Urine Voided mL -- 1,100 -- Total 100 1,450 -- Counts (1) Stool Count -- 2 -- * This column has not completed the indicated time period. Physical Exam General: Elderly female no acute distress Eyes: PERRLA. Intact EOM HEENT: Mucous membrane pink, moist, Normal tongue. Neck: Trachea midline, neck supple, no JVD, no bruit Lungs: on RA, lungs CTA Cardio: Regular S1, S2, Good perfusion Pulses: Normal capillary refill Abdomen: Soft, non-distended, non-tender, + BS x4 Musculoskeletal: No deformity or scoliosis noted. Normal ROM for age. Integumentary: Warm, dry, right hip surgical site stable - dressing c,d,i Extremity: No clubbing, no edema Neurologic: Alert, oriented x 4 follows commands, no obvious focal deficits Mental status: Pleasant & cooperative, normal judgment Lab Results Size: 32 MM (06/17/24 16:31:01) Size: 95 MM (06/17/24 16:31:01) Size: 11 MM (06/17/24 16:31:01) WBC: 10.4 E9/L (06/18/24 05:30:00) RBC: 4 E12/L Low (06/18/24 05:30:00) HGB: 11.9 gm/dL Low (06/18/24 05:30:00) Hct: 35.8 % (06/18/24 05:30:00) MCV: 90.3 fL (06/18/24 05:30:00) MCH: 30 pg (06/18/24 05:30:00) MCHC: 33.2 gm/dL (06/18/24 05:30:00) RDW: 14.9 % High (06/18/24 05:30:00) Platelet: 342 E9/L (06/18/24 05:30:00) MPV: 7.7 fL (06/18/24 05:30:00) Neutro Auto: 80.5 % High (06/18/24 05:30:00) Lymph Auto: 11.7 % Low (06/18/24 05:30:00) Dougherty Auto: 7.6 % (06/18/24 05:30:00) Eos Auto: 0 % (06/18/24 05:30:00) Basophil Auto: 0.2 % (06/18/24 05:30:00) Neutro Absolute: 8.4 E9/L High (06/18/24 05:30:00) Lymph Absolute: 1.2 E9/L (06/18/24 05:30:00) Dougherty Absolute: 0.8 E9/L (06/18/24 05:30:00) Eos Absolute: 0 E9/L (06/18/24 05:30:00) Basophil Absolute: 0 E9/L (06/18/24 05:30:00) Glucose Lvl: 135 mg/dL (06/18/24 05:30:00) BUN: 17 mg/dL (06/18/24 05:30:00) Creatinine: 0.6 mg/dL (06/18/24 05:30:00) eGFR: 89 mL/min/1.73 m2 (06/18/24 05:30:00) BUN/Creat Ratio: 28 High (06/18/24 05:30:00) Sodium Lvl: 134 mmol/L Low (06/18/24 05:30:00) Potassium Lvl: 4.3 mmol/L (06/18/24 05:30:00) Chloride: 103 mmol/L (06/18/24 05:30:00) CO2: 25 mmol/L (06/18/24 05:30:00) AGAP: 10 mEq/L (06/18/24 05:30:00) Calcium Lvl: 8.6 mg/dL Low (06/18/24 05:30:00) UA Spec Desc: Costa (06/17/24 16:35:00) UA Color: Yellow (06/17/24 16:35:00) UA Clarity: Clear (06/17/24 16:35:00) UA Spec Grav: 1.020 (06/17/24 16:35:00) UA pH: 6.5 (06/17/24 16:35:00) UA Protein: Negat (06/17/24 16:35:00) UA Glu (more content not included)...[facility] HospitalComment on above:Result Comment: Electronically Signed By: Maricel Mckoy CNP\.br\Date and Time Signed: 06/18/24 14:06 EDT\.br\Electronically Co-Signed By: Kashmir BAXTER MD\.br\Date and Time Co-Signed: 06/18/24 14:44 [id number] NoteProgress Note-Physician Patient: DEE HANDY Age: 83 years Sex: Female : 1940 Associated Diagnoses: None Author: Dewey Herrera DO POD 1 s/p IMN R hip pain controlled. back pain improved. flynn po R LE: comp supple, dressings dry, ankle PF/DF intact, neg homans, brisk cap refill WBC 10.4 Hgb 11.9 Hct 35.8 Plt 342 eGFR 89 Plan: - PT: WBAT - DVT prophylaxis: early ambulation, SCDs, Lovenox (can change to aspirin 81 mg po daily x 30 days at discharge) - IS - DCP: likely SNF Objective Vital Signs 06/18/2024 10:28 EDT Heart Rate Monitored 91 bpm SpO2 92 % 06/18/2024 10:24 EDT Temperature Axillary 36.3 DegC 06/18/2024 10:24 EDT Systolic Blood Pressure 99 mmHg Diastolic Blood Pressure 58 mmHg [facility] Result Comment: Electronically Signed By: Dewey Herrera DO\.br\Date and Time Signed: 06/18/24 13:11 [id number] NotePROCEDURE: XR HIPS LB 5V W PELVIS HISTORY: Bilateral hip joint [...] Electronically authenticated by: SAGE LOPEZ Date: 2022-11-08 12:19[facility] Diagnosis Status post hip surgery- Primary documented in this encounter [facility]* Diagnosis Status post hip surgery- Primary documented in this encounter [facility] HealthcareEvaluation note* Diagnosis Weakness of right hip- Primary Status post hip surgery documented in this encounter [facility] HealthcareHospital course Narrative No data available for this section [facility] Progress note No data available for this section [facility] Reason for visit Narrative* Consultation (Routine) - Closed Specialty Diagnoses / Procedures Referred By Yoselyn romero Referred To Contact Physical Therapy Diagnoses Status post hip surgery Procedures MI OFFICE/OUTPATIENT NEW HIGH MDM 60 MINUTES Dewey Herrera, DO [address] [place] [address] Phone: tel: fax: Myron Oh, PT [address] [facility] [address] [place] [address] Phone: tel: fax: Referral ID Status Reason Start Date Expiration Date V isits Requested Visits Authorized [id number] Closed Consult and Treat 09/01/2024 02/28/2025 10 10 [facility] Healthcare Summary Purpose Family History No Family History Records FoundNo Family History Records FoundNo Family History Records FoundNo Family History Records FoundNo Family History Records Found No data available for this section No Family History Records FoundNo Family History Records FoundNo Family History Records FoundNo Family History Records FoundNo Family History Records FoundNo Family History Records FoundNo Family History Records Found Advance Directives No Advanced Directives Records FoundNo Advanced Directives Records FoundNo Advanced Directives Records FoundNo Advanced Directives Records FoundNo Advanced Directives Records FoundNo Advanced Directives Records FoundNo Advanced Directives Records FoundNo Advanced Directives Records FoundNo Advanced Directives Records FoundNo Advanced Directives Records FoundNo Advanced Directives Records FoundNo Advanced Directives Records Found Additional Source Comments INFORMATION SOURCE (unrecogn ized section and content) DATE CREATED AUTHOR 11/27/2022 [facility] DATE CREATED AUTHOR AUTHOR'S ORGANIZ ATION 06/19/2024 [facility] DATE CREATED AUTHOR AUTHOR'S ORGANIZ ATION 06/20/2024 [facility] DATE CREATED AUTHOR AUTHOR'S ORGANIZ ATION 06/24/2024 [facility] DATE CREATED AUTHOR AUTHOR'S ORGANGRANT ATREMA 09/12/2024 [facility] Reason for Visit (unrecogniz ed section and content) Reason Comments Post-op IMN 06/17/24 Pain IMN 06/17/24 Reason Comments Post-op IMN 06/17/24 FOR RECORDS PERTAINING TO PATIENTS WHO ARE [...] BE BASED ON THE PRIMARY CLINICAL RECORDS. [employer] provides no warranty or guarantee of the accuracy or completeness of information in this document.
== END 2024-09-25 14:30 | disposition home or self-care (01) ==
LOC: RAD 14:33
PROVIDERS: PCP Family Medicine; Visit Provider Family Medicine
DX: M54.9 Dorsalgia, unspecified (principal); M51.379 Other intervertebral disc degeneration, lumbosacral region without mention of lumbar back pain or lower extremity pain
CPT/HCPCS: 72220

== ENCOUNTER 2024-12-07 11:23 | Emergency (ER) | payer MEDICARE, SELFPAY ==
[2024-12-07] VITALS (9 sets, daily range): BP systolic 122–146; BP diastolic 74–94; PULSE 78–90; TEMP 36.8; O2SAT 91–96; BMI 20.5
--- OUTSIDE RECORDS SUMMARY | 2024-12-07 11:46 | XMS_ITS | CCD ---
Author Organization [facility] Team Providers Care Youth Court Judge Name Role Phone [place] Severino, DR FRANCISCO Primary Care Unavailable RAYSHAWN, DR RM Consulting Unavailable RAYSHAWN, DR RM Admitting Unavailable RAYSHAWN, DR RM Attending Unavailable MCRAEWALTER Conteh Consulting Unavailable HOY ., DR FRANCISCO Admitting [...] Primary Care Provider UnavailMiguel Forrest Admitting Unavailable Miguel HARTLEY Attending Unavailable Dewey Herrera Consulting Unavailable Javier, Dewey A Consulting Unavailable Javier, Dewey A Consulting Unavailable Javier, Dewey A Consulting Unavailable Brown, Dewey A Consulting Unavailable Brown, Dewey A Consulting Unavailable Javier, Dewey A Consulting Unavailable Javier, Dewey A Consulting Unavailable Javier, Dewey A Consulting Unavailable Javier, Dewey A Consulting Unavailable Javier, Dewey A Consulting Unavailable NONE, XXXX Primary Care Physician Unavailab Margie Woods Unavailable Unavailable NAEEM, Miguel A Admitting Unavailable Alejandro Boykin Attending Unavailable Paulie Herrerason A Consulting Unavailable Brown, Dewey A Consulting Unavailable Brown, Dewey A Consulting Unavailable Brown, Dewey A Consulting Unavailable Brown, Dewey A Consulting Unavailable Brown, Dewey A Consulting Unavailable Brown, Dewey A Consulting Unavailable Brown, Dewey A Consulting Unavailable Brown, Dewey A Consulting Unavailable Brown, Dewey A Consulting Unavailable Javier Dewey A Consulting Unavailable Maryam Valerio MD Primary Care Provider [phone] DEWEY HERRERA Referring Unavailable DEWEY HERRERA Attending Unavailable DEWEY HERRERA Referring Unavailable DEWEY HERRERA Attending Unavailable DEWEY HERRERA Referring Unavailable DEWEY HERRERA Referring Unavailable DEWEY HERRERA Attending Unavailable MYRON OH Attending Unavailable DEWEY HERRERA Referring Unavailable Allergies Allergy Classification Reported Allergen(s) Allergy Type Date of Onset Reaction(s) Facility (1 source) Caffeine Drug Allergy 7 [facility] Repository (2 sources) No Known Medication Allergies; Translations: [No Known Medication Allergies] Propensity to adverse reactions (disorder) [facility] Repository (8 sources) Caffeine Drug Allergy 4 [facility] (8 sources) Salicylic Acid Drug Allergy 1 [facility] (8 sources) Sulfites Drug Allergy 1 Rash [facility] (8 sources) Cat Hair Extract Allergy to substance 1 [facility] Medications Current Medications Medication Drug Class(es) Dates Sig (Normalized) Sig (Original) ascorbic acid 500 mg oral tablet (9 sources) Vitamin C Start: 06-19-2024 ascorbic acid 500 mg Tab 500 mg = 1 tab(s), Oral, BIDWM, Refills(s) 0 Start Date: 06/19/24 Status: Ordered take 1 tablet by mouth once gabrielle y ascorbic acid (Vitamin C) 500 MG tablet Take 500 mg by mouth Daily Active aspirin 81 mg delayed release oral tablet (9 sources) Platelet Aggregation Inhibitor, Nonsteroidal Anti-inflammatory Drug Start: 06-19-2024 aspirin 81 MG EC tablet Take 81 mg by mouth 06/19/2024 Active diphenhydrAMINE hydrochloride 2.5 mg/ml oral solution (8 sources) Histamine-1 Receptor Antagonist diphenhydrAMINE (BENADryl) 12.5 MG/5ML elixir Take by mouth Active docusate sodium 100 mg oral capsule (9 sources) Start: 06-19-2024 Docusate Sodium (DSS) 100 MG capsule Take 100 mg by mouth 06/19/2024 Active ferrous sulfate 325 mg oral tablet (9 sources) Start: 06-19-2024 ferrous sulfate 325 mg Tab 325 mg = 1 tab(s), Oral, BIDWM, Refills(s) 0 Start Date: 06/19/24 Status: Ordered loratadine 10 mg disintegrating oral tablet (8 sources) take 1 tablet by mouth once [...] pantoprazole 40 mg delayed release oral tablet (9 sources) Proton Pump Inhibitor Start: 06-19-2024 pantoprazole (ProtoNix) 40 MG EC tablet Take 40 mg by mouth 06/19/2024 Active traMADol hydrochloride 50 mg oral tablet (6 sources) Opioid Agonist Start: 08-10-2024 traMADol (Ultr [...] HIP] Onset: 11-08-2022 Episodic Residual codes; unclassified (9 sources) History of operative procedure on hip; [...] to the permanent medical record. X-rays show healed intertrochanteric fracture. The hardware is intact. There is no avascular changes to the femoral head. [facility] Radiology Study observation (narrative) [facility] XR Hip - right 3 [facility] Result: AP pelvis, lateral right hip(s) taken today and saved to the permanent medical record. X-rays show the hardware is intact. The fracture appears to be healing appropriately. There are no avascular changes to the femoral head. Lag screw is not prominent at insertion site. [facility] XR Hip - right 3 [facility] Study observation (narrative) [facility] XR Hip - right 3 [facility] Result: AP pelvis, lateral right hip(s) taken today and saved to the permanent medical record. Fracture in satisfactory position with early signs of healing. Hardware intact. No avascular changes. [facility] XR Hip - right 3 [facility] Study observation (narrative) [facility] BUNon 06-19-2024 Urea nitrogen [Mass/Vol] 15 mg/dL Normal 5-21 [facility] Comment on above: Performed By: #### 2 [id number] #### [facility] [address] [place] [address] CBC w/ Auto Diffon Basophils/100 WBC (Bld) 0.9 % Normal 0.0-2.0 [facility] Comment on above: Performed By: #### 2 [id number] #### [facility] [address] [place] [address] Erythrocyte distribution width (RBC) [Ratio] 14.7 % High 10.9-14.2 [facility] Comment on above: Performed By: #### 2 [id number] #### [facility] [address] [place] [address] Hematocrit (Bld) [Volume fraction] 31.5 % Low 34.0-46.0 [facility] Comment on above: Performed By: #### 2 [id number] #### [facility] [address] [place] [address] Lymphocytes/100 WBC (Bld) 20.1 % Normal 14.0-50.0 [facility] Comment on above: Performed By: #### 2 [id number] #### [facility] [address] [place] [address] Neutrophils/100 WBC (Bld) 66.3 % Normal 36.0-75.0 [facility] Comment on above: Performed By: #### 2 [id number] #### [facility] [address] [place] [address] Platelet mean volume (Bld) [Entitic vol] 7.4 fL Normal 6.4-10.8 [facility] Comment on above: Performed By: #### 2 [id number] #### [facility] [address] [place] [address] Basophils/Leukocytes Auto (Bld) [Pure # fraction] 0.1 E9/L Normal 0.0-0.2 [facility] Comment on above: Performed By: #### 2 [id number] #### [facility] [address] [place] [address] Eosinophils (Bld) [#/Vol] 0.3 E9/L Normal 0.0-0.5 [facility] Comment on above: Performed By: #### 2 [id number] #### [facility] [address] [place] [address] Eosinophils/100 WBC (Bld) 3.0 % Normal 0.0-8.0 [facility] Comment on above: Performed By: #### 2 [id number] #### [facility] [address] [place] [address] Hemoglobin (Bld) [Mass/Vol] 10.7 g/dL Low 12.0-16.0 [facility] Comment on above: Performed By: #### 2 [id number] #### [facility] [address] [place] [address] Lymphocytes (Bld) [#/Vol] 1.8 E9/L Normal 1.0-4.0 [facility] Comment on above: Performed By: #### 2 [id number] #### [facility] [address] [place] [address] MCH (RBC) [Entitic mass] 30.3 pg Normal 27.0-34.0 [facility] Comment on above: Performed By: #### 2 [id number] #### [facility] [address] [place] [address] MCHC (RBC) [Mass/Vol] 34.0 g/dL Normal 31.4-36.0 [facility] Comment on above: Performed By: #### 2 [id number] #### [facility] [address] [place] [address] MCV (RBC) [Entitic vol] 88.9 fL Normal 80.0-100.0 [facility] Comment on above: Performed By: #### 2 [id number] #### [facility] [address] [place] [address] Monocytes (Bld) [#/Vol] 0.9 E9/L Normal 0.2-1.0 [facility] Comment on above: Performed By: #### 2 [id number] #### [facility] [address] [place] [address] Neutrophils (Bld) [#/Vol] 6.0 E9/L Normal 2.0-7.5 [facility] Comment on above: Performed By: #### 2 [id number] #### [facility] [address] [place] [address] Platelet 326.0 E9/L Normal 150.0-500.0 [facility] Comment on above: Performed By: #### 2 [id number] #### [facility] [address] [place] [address] RBC (Bld) [#/Vol] 3.5 E12/L Low 4.3-5.9 [facility] Comment on above: Performed By: #### 2 [id number] #### [facility] [address] [place] [address] WBC corrected for nucl RBC Auto (Bld) [#/Vol] 9.0 E9/L Normal 4.0-11.0 [facility] Comment on above: Performed By: #### 2 [id number] #### [facility] [address] [place] [address] CHEMISTRYOrdered By: SYSTEM SYSTEM on 06-19-2024 Anion [...] 06-19-2024 Creatinine [Mass/Vol] 0.6 mg/dL Normal 0.5-1.3 [facility] Comment on above: Performed By: #### 2 [id number] #### [facility] [address] [place], [place] [address] [place] [address] BUNon 06-19-2024 Original [facility]ing [facility]: [facility] W/ AUTO DIFFon 05-27 EOSINOPHILS/100 LEUKOCYTES:NFR:PT:BLD: QN:AUTOMATED COUNT 3 % 0.0 - 8.0 % [facility] EOSINOPHILS:NCNC:PT:BL D:QN: 0.3 [facility] BASOPHILS/LEUKOCYTES:N FR.DF:PT:BLD:QN:AUTOMA HARSHIL COUNT 0.1 [facility] ERYTHROCYTE MEAN CORPUSCULAR HEMOGLOBIN CONCENTRATION:MCNC:PT: RBC:QN 34 [facility] ERYTHROCYTE MEAN CORPUSCULAR HEMOGLOBIN:ENTMASS:PT: RBC:QN 30.3 pg 27.0 - 34.0 pg [facility] ERYTHROCYTE MEAN CORPUSCULAR VOLUME:ENTVOL:PT:RBC:Q N:AUTOMATED COUNT 88.9 fL 80.0 - 100.0 fL [facility] ERYTHROCYTES:NCNC:PT:B LD:QN:AUTOMATED COUNT 3.5 [facility] HEMOGLOBIN:MCNC:PT:BLD :QN: 10.7 [facility] LEUKOCYTES 9 [facility] MONOCYTES:NCNC:PT:BLD: QN:AUTOMATED COUNT 0.9 [facility] NEUTROPHILS:NCNC:PT:BL D:QN:AUTOMATED COUNT 6 [facility] Interpretation and review of laboratory results Abnormal [facility] LYMPHOCYTES:NCNC:PT:BL D:QN: 1.8 [facility] Platelets (Bld) [#/Vol] 326 10*3/uL [facility] Original Ordering Provider: DO Dewey Herrera [facility] HEMATOLOGYOrdered By: SYSTEM SYSTEM on 06-19-2024 Basophils/100 [...] 06-19-2024 Inpatient Clinical Summary Inpatient Clinical Summary [address] [address] Clinical Summary Person Information: Name: DEE HANDY Age: 83 Years : 1940 Sex: Female PCP: NONE, XXXX Marital Status: Race: White Ethnicity: Non- or Language: Bhutanese Visit Id: Visit Reason: Hip pain-swelling; Fall; FALL Speciality: Acuity: Enc Type: Inpatient Med Service: Medical Arrival: 06/16/2024 18:48:09 Discharge: Dispo Type: Admitted as IP to this Hosp Address: [address] [place] [id number] Provider Notes: Diagnosis: 1:Hip fracture, right; 2:Accidental [...] Physician: Follow up: With: Address: When: Dewey Javier [address] [phone] [facility] (1) Within 4 weeks Comments: Call for followup appointment Patient Education Information: Fall Prevention in the Home, Adult, Vhoy-eo-Gkos Normal [facility] Inpatient Patient Summaryon 06-19-2024 Inpatient Patient Summary Inpatient Patient Summary [address] [address] Patient Discharge Instructions PERSON INFORMATION [...] to air POD 14 if no drainage Javier Dewey ALEXIS Isabel - 06/17/2024 16:56 EDT Primary Care Physician to provide the following pending test results: None Follow up: With: Address: When: Dewey Herrera [address] [place] [address] Business (1) Within 4 weeks Comments: Call for [...] Keep items that you use often in pgpq-ur-jfxja places. Lower the shelves around your home [...] you u (more content not included)... Normal [facility] Inpatient Patient Summary Inpatient Patient Summary [...] Call for followup appointment Where: [place] [address]- [employer] (1) Medications What How Much When Instructions [...] Keep items that you use often in qdds-gm-frzjd places. Lower the shelves around your home [...] bathroom? ?? (more content not included)... Normal [facility] Interdisciplinary Note - Fuad e Manageron 06-19-2024 Interdisciplinary Note - Respiratory Scientist Interdisciplinary Note - Respiratory Scientist CRM to room 306 Patient is awake, [...] of SNF. [place] Choice is [facility], she will need precert. They accepted, pending precert. Patient was provided CRM contact, white board updated. CRM following Patient just needs a 3 M stay she was originally listed as [facility] [facility]are but its straight medicare so she can DC there today Normal [facility] Comment on above: Result Comment: Elec tronically Signed By: Whit Campoverde\.br\Date and Time Signed: 06/19/24 13:20 EDT Lyteson 06-19-2024 Anion gap [Moles/Vol] 9 mmol/L Normal 6-16 [facility] Comment on above: Performed By: #### 2 [id number] #### [facility] [address] [place] [address] Chloride [Moles/Vol] 104 mmol/L Normal 101-111 [facility] Comment on above: Performed By: #### 2 [id number] #### [facility] [address] [place] [address] CO2 [Moles/Vol] 27 mmol/L Normal 21-31 [facility] Comment on above: Performed By: #### 2 [id number] #### [facility] [address] [place] [address] Potassium [Moles/Vol] 4.1 mmol/L Normal 3.5-5.3 [facility] Comment on above: Performed By: #### 2 [id number] #### [facility] [address] [place] [address] Sodium [Moles/Vol] 136 mmol/L Normal 135-145 [facility] Comment on above: Performed By: #### 2 [id number] #### [facility] [address] [place] [address] Main OR Intraoperative Recor don 06-19-2024 Main OR Intraoperative Record Main OR Intraoperative Record IntraOp Document Type FT Summary Primary Physician: Dewey Herrera DO Finalized Date/Time: 06/19/24 09:36:57 Pt. Name: OLEDEE/Sex: 1940 Female Med Rec #: [id number] Physician: Miguel HARTLEY DO Financial #: [id number] Pt. Type: I Room/Bed: [place] [address] Admit/Disch: 06/16/24 18:48:09 - Institution: Case Times [...] 2 Entry 3 Case Attendee [facility] [place] [place] Role Performed Surgeon - Primary Anesthesiologist Travel Accommodation Inspector - Primary Fitness And Wellness Director Time In 06/17/24 15:26:00 06/17/24 15:26:00 06/17/24 15:26:00 Time Out 06/17/24 16:31:00 06/17/24 16:46:00 06/17/24 16:46:00 Procedure HIP FRACTURE ORIF(Right) HIP FRACTURE ORIF(Right) HIP FRACTURE ORIF(Right) Comments DR AL SUPERVISING Last Modified By: Cortez Knowles Terry T Sweene, Terry T 06/17/24 16:52:17 06/17/24 16:52:17 06/17/24 16:52:17 Entry 4 Entry 5 Entry 6 Case Attendee Whit Lazaro Kendall R Daniel, Alissa M Role Performed HEALTH PHYSICIST Scrub - Primary Surveillance Technician Time In 06/17/24 15:26:00 06/17/24 15:26:00 06/17/24 [...] Given Participants Enrique Barr, Cortez Knowles, Whit Lazaro Troike, Kendall R, Daniel, Alissa M Time Out Complete 06/17/24 16:02:00 Outcomes Met? [...] and tissue Entry 1 Skin Integrity Intact, [place], Warm, & Skin Abnormality No Dry Outcomes [...] patient f (more content not included)... Normal [facility] eGFRon 06-19-2024 eGFR 89 mL/min/1.73 m2 Normal >=59 [facility] Comment on above: Performed By: #### 1 [id number] #### [facility] [address] [place] [address] BMPon 06-18-2024 Anion gap [Moles/Vol] 10 mmol/L Normal 6-16 [facility] Comment on above: Performed By: #### 2 [id number] #### [facility] [address] [place] [address] Calcium [Mass/Vol] 8.6 mg/dL Low 8.9-11.1 [facility] Comment on above: Performed By: #### 2 [id number] #### [facility] [address] [place] [address] Chloride [Moles/Vol] 103 mmol/L Normal 101-111 [facility] Comment on above: Performed By: #### 2 [id number] #### [facility] [address] [place] [address] CO2 [Moles/Vol] 25 mmol/L Normal 21-31 [facility] Comment on above: Performed By: #### 2 [id number] #### [facility] [address] [place] [address] Creatinine [Mass/Vol] 0.6 mg/dL Normal 0.5-1.3 [facility] Comment on above: Performed By: #### 2 [id number] #### [facility] [address] [place] [address] Glucose [Mass/Vol] 135 mg/dL Normal 55-199 [facility] Comment on above: Performed By: #### 2 [id number] #### [facility] [address] [place] [address] Potassium [Moles/Vol] 4.3 mmol/L Normal 3.5-5.3 [facility] Comment on above: Performed By: #### 2 [id number] #### [facility] [address] [place] [address] Sodium [Moles/Vol] 134 mmol/L Low 135-145 [facility] Comment on above: Performed By: #### 2 [id number] #### [facility] [address] [place] [address] Urea nitrogen [Mass/Vol] 17 mg/dL Normal 5-21 [facility] Comment on above: Performed By: #### 2 [id number] #### [facility] [address] [place] [address] Urea nitrogen/Creatinine [Mass ratio] 28 No Units High 10-20 [facility] Comment on above: Performed By: #### 2 [id number] #### [facility] [address] [place] [address] CBC w/ Auto Diffon 10-24-202 4 Basophils/100 WBC (Bld) 0.2 % Normal 0.0-2.0 [facility] Comment on above: Performed By: #### 2 [id number] #### [facility] [address] [place] [address] Basophils/Leukocytes Auto (Bld) [Pure # fraction] 0.0 E9/L Normal 0.0-0.2 [facility] Comment on above: Performed By: #### 2 [id number] #### [facility] [address] [place] [address] Eosinophils (Bld) [#/Vol] 0.0 E9/L Normal 0.0-0.5 [facility] Comment on above: Performed By: #### 2 [id number] #### [facility] [address] [place] [address] Eosinophils/100 WBC (Bld) 0.0 % Normal 0.0-8.0 [facility] Comment on above: Performed By: #### 2 [id number] #### [facility] [address] [place] [address] Erythrocyte distribution width (RBC) [Ratio] 14.9 % High 10.9-14.2 [facility] Comment on above: Performed By: #### 2 [id number] #### [facility] [address] [place] [address] Hematocrit (Bld) [Volume fraction] 35.8 % Normal 34.0-46.0 [facility] Comment on above: Performed By: #### 2 [id number] #### [facility] [address] [place] [address] Hemoglobin (Bld) [Mass/Vol] 11.9 g/dL Low 12.0-16.0 [facility] Comment on above: Performed By: #### 2 [id number] #### [facility] [address] [place] [address] Lymphocytes (Bld) [#/Vol] 1.2 E9/L Normal 1.0-4.0 [facility] Comment on above: Performed By: #### 2 [id number] #### [facility] [address] [place] [address] Lymphocytes/100 WBC (Bld) 11.7 % Low 14.0-50.0 [facility] Comment on above: Performed By: #### 2 [id number] #### [facility] [address] [place] [address] MCH (RBC) [Entitic mass] 30.0 pg Normal 27.0-34.0 [facility] Comment on above: Performed By: #### 2 [id number] #### [facility] [address] [place] [address] MCHC (RBC) [Mass/Vol] 33.2 g/dL Normal 31.4-36.0 [facility] Comment on above: Performed By: #### 2 [id number] #### [facility] [address] [place] [address] MCV (RBC) [Entitic vol] 90.3 fL Normal 80.0-100.0 [facility] Comment on above: Performed By: #### 2 [id number] #### [facility] [address] [place] [address] Monocytes (Bld) [#/Vol] 0.8 E9/L Normal 0.2-1.0 [facility] Comment on above: Performed By: #### 2 [id number] #### [facility] [address] [place] [address] Neutrophils (Bld) [#/Vol] 8.4 E9/L High 2.0-7.5 [facility] Comment on above: Performed By: #### 2 [id number] #### [facility] [address] [place] [address] Neutrophils/100 WBC (Bld) 80.5 % High 36.0-75.0 [facility] Comment on above: Performed By: #### 2 [id number] #### [facility] [address] [place] [address] Platelet mean volume (Bld) [Entitic vol] 7.7 fL Normal 6.4-10.8 [facility] Comment on above: Performed By: #### 2 [id number] #### [facility] [address] [place] [address] Platelets (Bld) [#/Vol] 342.0 E9/L Normal 150.0-500.0 [facility] Comment on above: Performed By: #### 2 [id number] #### [facility] [address] [place] [address] RBC (Bld) [#/Vol] 4.0 E12/L Low 4.3-5.9 [facility] Comment on above: Performed By: #### 2 [id number] #### [facility] [address] [place] [address] WBC corrected for nucl RBC Auto (Bld) [#/Vol] 10.4 E9/L Normal 4.0-11.0 [facility] Comment on above: Performed By: #### 2 [id number] #### [facility] [address] [place] [address] CHEMISTRYOrdered By: SYSTEM SYSTEM on 06-18-2024 Anion [...] mg/mg High 10 - 20 Remisol [facility] [place] [place] CBC W/ AUTO DIFFon 05-27 EOSINOPHILS/100 LEUKOCYTES:NFR:PT:BLD: QN:AUTOMATED COUNT 0 % 0.0 - 8.0 % [facility] EOSINOPHILS:NCNC:PT:BL D:QN: 0 [facility] BASOPHILS/LEUKOCYTES:N FR.DF:PT:BLD:QN:AUTOMA HARSHIL COUNT 0 [facility] ERYTHROCYTE MEAN CORPUSCULAR HEMOGLOBIN CONCENTRATION:MCNC:PT: RBC:QN 33.2 [facility] ERYTHROCYTE MEAN CORPUSCULAR HEMOGLOBIN:ENTMASS:PT: RBC:QN 30 pg 27.0 - 34.0 pg [facility] ERYTHROCYTE MEAN CORPUSCULAR VOLUME:ENTVOL:PT:RBC:Q N:AUTOMATED COUNT 90.3 fL 80.0 - 100.0 fL [facility] ERYTHROCYTES:NCNC:PT:B LD:QN:AUTOMATED COUNT 4 [facility] HEMOGLOBIN:MCNC:PT:BLD :QN: 11.9 [facility] LEUKOCYTES 10.4 [facility] MONOCYTES:NCNC:PT:BLD: QN:AUTOMATED COUNT 0.8 [facility] NEUTROPHILS:NCNC:PT:BL D:QN:AUTOMATED COUNT 8.4 [facility] PLATELETS:NCNC:PT:BLD: QN:AUTOMATED COUNT 342 [facility] Interpretation and review of laboratory results Abnormal [facility] LYMPHOCYTES:NCNC:PT:BL D:QN: 1.2 [facility] Original Ordering Provider: [place] [facility] [place] HEMATOLOGYOrdered By: SYSTEM SYSTEM on 06-18-2024 Basophils/100 [...] Fuad e Manageron 06-18-2024 Interdisciplinary Note - Respiratory Scientist Interdisciplinary Note - Respiratory Scientist CRM to room 306 Patient is awake, [...] of SNF. [place]. Choice is 1 WAB, she will need precert. They accepted, pending precert. Patient was provided CRM contact, white board updated. CRM following Normal [facility] Comment on above: Result Comment: Elec tronically Signed By: Whit Campoverde\.br\Date and Time Signed: 06/18/24 09:54 EDT Interdisciplinary [...] self care ADL tasks and transfers. Normal [facility] U Drug Screenon 06-18-2024 Amphetamines Screen method >1000 ng/mL Ql (U) Negative Normal NEGATIVE [facility] Comment on above: Result Comment: Nega tive Cutoff: <1000 ng/mL Performed By: #### 2 [id number] #### [facility] [address] [place] [address] Barbiturates Screen Ql (U) Negative Normal NEGATIVE [facility] Comment on above: Result Comment: Nega tive Cutoff: <200 ng/mL Performed By: #### 2 [id number] #### [facility] [address] [place] [address] Benzodiazepines Ql (U) Negative Normal NEGATIVE [facility] Comment on above: Result Comment: Nega tive Cutoff: <200 ng/mL Performed By: #### 2 [id number] #### [facility] [address] [place] [address] Cannabinoids Screen Ql (U) Negative Normal NEGATIVE [facility] Comment on above: Result Comment: Nega tive Cutoff: <50 ng/mL Performed By: #### 2 [id number] #### [facility] [address] [place] [address] Cocaine Ql (U) Negative Normal NEGATIVE [facility] Comment on above: Result Comment: Nega tive Cutoff: <300 ng/mL Performed By: #### 2 [id number] #### [facility] [address] [place] [address] Opiates Screen Ql (U) Positive Abnormal NEGATIVE [facility] Comment on above: Result Comment: No C onfirmation Requested by Physician Result Verified by Repeat Analysis Unconfirmed by an Alternate Method called to and read back by Crystal Vrable Negative Cutoff: <300 ng/mL Performed By: #### 2 [id number] #### [facility] [address] [place] [address] Phencyclidine Screen method >25 ng/mL Ql (U) Negative Normal NEGATIVE [facility] Comment on above: Result Comment: Nega tive Cutoff: <25 ng/mL These drug screen results are to be used for medical (i.e., treatment) purposes only. Unconfirmed drug screening results must not be used for non-medical purposes (e.g., employment testing, legal testing). Performed By: #### 2 [id number] #### [facility] [address] [place] [address] U Fentanyl Positive Abnormal NEGATIVE [facility] Comment on above: Result Comment: No [...] testing, legal testing). Performed By: #### 2 [id number] #### [facility] [address] [place] [address] XR Hip 2-3 Views Righton XR Hip [...] = 0 Fluoro Time: 72.4 seconds Normal [facility] eGFRon 06-18-2024 eGFR 89 mL/min/1.73 m2 Normal >=59 [facility] Comment on above: Performed By: #### 1 [id number] #### [facility] [address] [place] [address] BLOOD BANKOrdered By: Alfonzo Benson on 06-17-2024 ABO/Rh Retype Interp Positive Invalid Interpretation Code [facility] [place] [place] BB Subsection CHEMISTRYOrdered By: SYSTEM SYSTEM on [...] Method called to and read back by Danlan Interpretive Data: N egative Cutoff: <300 ng/mL [...] Method called to and read back by Danlan Interpretive Data: N egative Cutoff: <5 ng/mL [...] 06-17-20 BILIRUBIN:PRTHR:PT:URI NE:ORD:TEST STRIP.AUTOMATED Negative Negative mg/dL [facility] CLARITY:TYPE:PT:URINE: NOM: [facility] CLASS:TYPE:PT:URINE COLLECTION METHOD:NOM:* [facility] COLOR:TYPE:PT:URINE:NO M:AUTO Yellow Yellow [facility] Comment on above: Microscopic readings are only performed on those samples that meet specific criteria set forth by [facility]. [facility] [place] [place] PH:LSCNC:PT:URINE:QN:T EST STRIP 6.5 5.0 - 9.0 [facility] SPECIFIC GRAVITY:RDEN:PT:URINE: QN:TEST STRIP 1.020 1.005 - 1.030 [facility] GLUCOSE:PRTHR:PT:URINE :ORD:TEST STRIP Negative Negative mg/dL [facility] HEMOGLOBIN:MCNC:PT:URI NE:SEMIQN:TEST STRIP.AUTOMATED Negative Negative mg/dL [facility] Interpretation and review of laboratory results Abnormal [facility] KETONES:PRTHR:PT:URINE :ORD:TEST STRIP.AUTOMATED 1+ Abnormal Negative mg/dL [facility] LEUKOCYTE ESTERASE:PRTHR:PT:URIN E:ORD:TEST STRIP.AUTOMATED Negative Negative CD:[id number] [facility] NITRITE:PRTHR:PT:URINE :ORD:TEST STRIP.AUTOMATED Negative Negative mg/dL [facility] PROTEIN:PRTHR:PT:URINE :ORD:TEST STRIP Negative Negative mg/dL [facility] UROBILINOGEN:MCNC:PT:U RINE:SEMIQN:TEST STRIP Negative Negative mg/dL [facility] Original Ordering Provider: DO Dewey Herrera [facility] UA with Cult Rflxon 06-17-20 Bilirubin Ql (U) Negative Normal Negative [facility] Comment on above: Performed By: #### 4 [id number] #### [facility] [address] [place] [address] Clarity (U) Clear Normal Clear [facility] Comment on above: Performed By: #### 4 [id number] #### [facility] [address] [place] [address] Color (U) Yellow Normal Yellow [facility] Comment on above: Result Comment: Micr oscopic readings are only performed on those samples that meet specific criteria set forth by [facility]. Performed By: #### 4 [id number] #### [facility] [address] [place] [address] Glucose Ql (U) Negative Normal Negative [facility] Comment on above: Performed By: #### 4 [id number] #### [facility] [address] [place] [address] Hemoglobin Auto test strip (U) [Mass/Vol] Negative Normal Negative [facility] Comment on above: Performed By: #### 4 [id number] #### [facility] [address] [place] [address] Ketones Auto test strip Ql (U) 1+ mg/dL Abnormal Negative [facility] Comment on above: Performed By: #### 4 [id number] #### [facility] [address] [place] [address] Leukocyte esterase Auto test strip Ql (U) Negative Normal Negative [facility] Comment on above: Performed By: #### 4 [id number] #### [facility] [address] [place] [address] Nitrite Auto test strip Ql (U) Negative Normal Negative [facility] Comment on above: Performed By: #### 4 [id number] #### [facility] [address] [place] [address] pH (U) 6.5 [pH] Invalid Interpretation Code 5.0-9.0 [facility] Comment on above: Performed By: #### 4 [id number] #### [facility] [address] [place] [id number] Protein Ql (U) Negative Normal Negative [facility] Comment on above: Performed By: #### 4 [id number] #### [facility] [address] [place] [address] Specific gravity (U) [Rel density] 1.020 Invalid Interpretation Code 1.005-1.030 [facility] Comment on above: Performed By: #### 4 [id number] #### [facility] [address] [place] [address] Urobilinogen (U) [Mass/Vol] Negative Normal Negative [facility] Comment on above: Performed By: #### 4 [id number] #### [facility] [address] [place] [address] Type of Urine collection method [place] Normal [facility] Comment on above: Performed By: #### 4 [id number] #### [facility] [address] [place] [address] URINALYSISOrdered By: SYSTEM SYSTEM on 06-17-2024 Bilirubin Ql (U) Negative Normal Negativemg/ d L [facility] UA Auto SS Clarity (U) Clear (06/17/24 4:35 PM) Normal Clear [facility] UA Auto SS Color (U) Yellow 3 (06/17/24 4:35 PM) Normal Yellow [facility] UA Auto SS Comment on above: Interpretive Data: M icroscopic readings are only performed on those samples that meet specific criteria set forth by [facility]. Glucose Ql (U) Negative Normal [...] PM) Invalid Interpretation Code 5.0 - 9.0 [facility] UA Auto SS Protein Ql (U) Negative Normal Negativemg/d L [facility] UA Auto SS Specific gravity (U) [Rel density] 1.020 *NA* (06/17/24 4:35 PM) Invalid Interpretation Code 1.005 - 1.030 [facility] UA Auto SS Urobilinogen (U) [Mass/Vol] Negative Normal Negativemg/d L [facility] UA Auto SS URINALYSISOrdered By: Cortez Knowles on 06-17-2024 UA Spec Desc [place] (06/17/24 4:35 PM) Normal [facility] UA Auto SS BLOOD BANKOrdered By: Juan Carlos Bradley on 06-16-2024 ABO/Rh Interp Positive Invalid Interpretation Code FT BB Subsection ABSC Gel Interp Negative (06/16/24 8:05 PM) Normal [facility] BB Subsection CHEMISTRYOrdered By: SYSTEM SYSTEM on [...] Sensitivity Troponin I Instructions For Use, [place], March 2018) Urea nitrogen/Creatinine [Mass ratio] 27 mg/mg High 10 - 20 Remisol Chem COAGULATIONOrdered By: Audrey Kilgore on 06-16-2024 aPTT Coag (PPP) [Time] 34.4 s Normal 25.1 - 36.5 second(s) [facility] [place] [place] Auto Coag Comment on above: Interpretive Data: Madison weinstein 15 days - 4 weeks 1 - 5 months 6 - 11 months 1 - 5 years 6 - 10 years 11 - 17 years PTT Mean: 35.4 (27.6-45.6) Mean: 33.5 (24.8-40.7) Mean: 32.4 (25.1-40.7) Mean: 31.6 (24.0-39.2) Mean: 31.6 (26.9-38.7) Mean: 31.0 (24.6-38.4) Pediatric Reference ranges were obtained from a study by paul Devlin prepared from 1437 samples obtained at 7 different centers using the same coagulation reagent and instrumentation as [facility] [place] [place]. Currently there are no coagulation studies available worldwide for children to 14 days, and no normal ranges. Heparin therapeutic range (represented by Anti-Factor Xa activity of 0.2 - 0.4 U/mL) corresponds to PTT of 56.6 - 109.0 sec. INR Coag (PPP) [Relative time] 1.04 {INR} Invalid Interpretation Code [facility] [place] [place] Auto Coag Comment on above: Interpretive Data: I NR results are specifically intended to assess patients stabilized on long-term Anticoagulation therapy suggested INR s Less Intensive Anticoagulation 2.0 3.0 Conventional Range 3.0 4.5 PT Coag (PPP) [Time] 11.7 s Normal 9.4 - 1 2.5 second(s) [facility] [place] [place] Auto Coag Comment on above: Interpretive Data: 1 5 days - 4 weeks 1 - 5 months 6 -11 months 1-5 years 6-10 years 11 -17 years Mean: 11.2 (9.5-12.6) Mean: 11.0 (9.7-12.8) Mean: 11.0 (9.8-13.0) Mean: 11.3 (9.9-13.4) Mean: 11.7 (10.0-14.6) Mean: 11.8 (10.0 - 14.1) Pediatric Reference ranges were obtained from a study by paul Devlin prepared from 1437 samples obtained at 7 different centers using the same coagulation reagent and instrumentation as [facility] [place] [place]. Currently there are no coagulation studies available worldwide for children to 14 days, and no normal ranges. [facility] CONon 11-20-19 [facility] CON EXAMINATION: [facility] CON HISTORY: Low back pain COMPARISON: No [...] SAGE LOPEZ Date: 2022-11-19 09:58 Normal [facility] XR ABD FLAT UP_PA Julita 11-08 [...] SAGE LOPEZ Date: 2022-11-08 12:23 Normal [facility] XR LSPINE MIN 4 VIEWSon 10-24 [...] SAGE LOPEZ Date: 2022-11-08 12:21 Normal [facility] XR WRIST RT MIN 3 Von 2021 XR WRIST RT MIN 3 V EXAM: XR WRIST RT LA N 3 V HISTORY: Wrist joint pain [...] by: WALTER MCRAE Date: 2022-08-22 11:25 Normal [facility] Vital Signs Date Time Vital Sign Value Performing Clinician Facility 11-03-2024 13:02-0400 Body height 162.6 cm Dewey XbyMe Work Phone: [facility] 11-03-2024 13:02-0400 Body mass index (BMI) [Ratio] 22.31 kg/m2 Dewey Filecubed DO Work Phone: [facility] 11-03-2024 13:02-0400 Body weight 58.97 kg Dewey XbyMe Work Phone: [facility] 09-01-2024 13:09-0500 Body height 162.6 cm Dewey XbyMe Work Phone: [facility] 09-01-2024 13:09-0500 Body mass index (BMI) [Ratio] 22.31 kg/m2 Dewey Filecubed DO Work Phone: [facility] 09-01-2024 13:09-0500 Body weight 58.97 kg Dewey Filecubed DO Work Phone: [facility] 06-19-2024 15:05-0400 Hourly Rounding Miguel NAEEM [facility] 06-19-2024 15:05-0400 Promise to Return Miguel NEAEM [facility] 06-19-2024 14:53-0400 Hourly Rounding Miguel NAEEM [facility] 06-19-2024 14:53-0400 Promise to Return Miguel NAEEM [facility] 06-19-2024 13:53-0400 Hourly Rounding Miguel NAEEM [facility] 06-19-2024 13:53-0400 Promise to Return Miguel HARTLEY [facility] 06-19-2024 11:00-0400 Blood Pressure Location Miguel CARRIZALESLIN [facility] 06-19-2024 11:00-0400 Body temperature 98.78 [degF] Migueljose CARRIZALESLIN [facility] 06-19-2024 11:00-0400 Diastolic blood pressure 66 mm[Hg] Migueljose MARTINEZSLIN [facility] 06-19-2024 11:00-0400 Heart rate 109 /min Migueljose MARTINEZSLIN [facility] 06-19-2024 11:00-0400 Mean blood pressure 78 mm[Hg] Miguel HARTLEY [facility] 06-19-2024 11:00-0400 Respiratory rate 18 /min Migueljose MARTINEZSLIN [facility] 06-19-2024 11:00-0400 SaO2% (BldA) [Mass fraction] 91 % Miguel MARTINEZSLIN [facility] 06-19-2024 11:00-0400 Systolic blood pressure 103 mm[Hg] Migueljose MARTINEZSLIN [facility] 06-19-2024 07:00-0400 Body temperature 97.88 [degF] Migueljose MARTINEZSLIN [facility] 06-19-2024 07:00-0400 Diastolic blood pressure 93 mm[Hg] Migueljose MARTINEZSLIN [facility] 06-19-2024 07:00-0400 Heart rate 102 /min Migueljose MARTINEZSLIN [facility] 06-19-2024 07:00-0400 Mean blood pressure 113 mm[Hg] Miguel NAEEM [facility] 06-19-2024 07:00-0400 SaO2% (BldA) [Mass fraction] 94 % Miguel NAEEM [facility] 06-19-2024 07:00-0400 Systolic blood pressure 154 mm[Hg] Miguel NAEEM [facility] 06-19-2024 04:00-0400 Body temperature 98.06 [degF] Miguel NAEEM [facility] 06-19-2024 04:00-0400 Diastolic blood pressure 79 mm[Hg] Miguel NAEEM [facility] 06-19-2024 04:00-0400 Heart rate 104 /min Miguel NAEEM [facility] 06-19-2024 04:00-0400 Mean blood pressure 97 mm[Hg] Miguel NAEEM [facility] 06-19-2024 04:00-0400 Respiratory rate 20 /min Miguel NAEEM [facility] 06-19-2024 04:00-0400 Systolic blood pressure 134 mm[Hg] Miguel NAEEM [facility] 06-18-2024 15:50-0400 Body temperature 98.24 [degF] Miguel NAEEM [facility] 06-18-2024 15:50-0400 Mean blood pressure 74 mm[Hg] Miguel NAEEM [facility] 06-18-2024 10:24-0400 Body temperature 97.34 [degF] Miguel NAEEM [facility] 06-18-2024 10:24-0400 Mean blood pressure 71 mm[Hg] Miguel NAEEM [facility] 06-18-2024 08:03-0400 Body temperature 97.7 [degF] Miguel NAEEM [facility] 06-18-2024 08:03-0400 Mean blood pressure 75 mm[Hg] Miguel NAEEM [facility] 06-17-2024 17:15-0400 Body temperature 98.06 [degF] Miguel NAEEM [facility] 06-17-2024 17:15-0400 Respiratory rate 12 /min Miguel NAEEM [facility] 06-17-2024 17:05-0400 Respiratory rate 16 /min Miguel NAEEM [facility] 06-17-2024 17:00-0400 Respiratory rate 10 /min Miguel NAEEM [facility] 06-17-2024 16:48-0400 Body temperature 98.24 [degF] Miguel NAEEM [facility] 06-16-2024 19:09-0400 Heart rate 101 /min Miguel NAEEM [facility] 06-16-2024 18:51-0400 Heart rate 113 /min Miguel NAEEM [facility] Encounters Encounter Date Encounter Type Care Provider Facility Start: 11-03-2024 End: 11-03-2024 Patient encounter procedure Dewey Herrera DO Work Phone: [facility] Comment on above: Status post hip surg park (Primary Dx) Start: 11-03-2024 End: 11-03-2024 ambulatory DEWEY HERRERA Not Available Start: 11-03-2024 End: 11-03-2024 ambulatory DEWEY Hall BROWN Not Available Start: 09-09-2024 End: 09-09-2024 Bamboo flowsheet Myron Destini Clivebetty PT Work Phone: [facility] Start: 09-09-2024 End: 09-09-2024 Bamboo flowsheet Myron Destini Althea PT Work Phone: [facility] Start: [...] Dx) Start: 07-16-2024 End: 07-16-2024 ambulatory DEWEY Hall BROWN Not Available Start: 07-16-2024 End: 07-16-2024 ambulatory DEWEY Hall BROWN Not Available Start: 06-19-2024 End: 06-19-2024 Clinisync Result Encounter Dewey Herrera DO Work Phone: [facility] Unsolicited Start: 06-19-2024 End: 06-19-2024 Clinisync Result Encounter Dewey Herrera DO Work Phone: [facility] Unsolicited Start: 06-18-2024 End: 06-18-2024 Clinisync Result Encounter Dewey Hall Javier DO Work Phone: [facility] Unsolicited [...] 06-19-2024 Evaluation and management of inpatient Miguel CARRIZALESLIN Facility:[facility] [place] [place] Start: 06-16-2024 End: 06-19-2024 Evaluation and management of inpatient Miguel HARTLEY [facility] Start: 11-19-2022 End: 11-20-[address] MARYAM VALERIO . Facility: Start: 11-08-2022 End: 11-09-[address] MARYAM VALERIO . Facility: Start: 08-22-2022 End: 08-22-[address] MARYAM VALERIO . Facility: Procedures Date Procedure Procedure Detail Performing Clinician Start: 11-03-2024 Radex hip unilateral with pelvis 2-3 views Dewey Herrera DO Work Phone: Start: 09-01-2024 Radex hip unilateral with pelvis 2-3 views Dewey Herrera DO Work Phone: Start: 07-16-2024 Radex hip unilateral with pelvis 2-3 views Dewey Herrera DO Work Phone: Start: 06-19-2024 [facility] [place] [place] BUN Dewey chang DO Work Phone: Start: 06-19-2024 [facility] [place] [place] CBC W/ AUTO DIFF J sharif Isabel Javier DO Work Phone: Start: 06-18-2024 [facility] [place] [place] CBC W/ AUTO DIFF J cristamarlon Herrera DO Work Phone: Start: 06-18-2024 Open reduction of fracture with internal fixation Miguel HARTLEY Start: 06-17-2024 UA WITH CULT RFLX Dewey Herrera DO Work Phone: Plan of Treatment Date Care Activity Detail Author Start: 06-17-2025 End: 06-17-2025 Patient encounter procedure 06/17/2025 1:00 PM EDT Office Visit [facility] [address] [place] [phone] Dewey Herrera DO [address] [place] [place] [address] [facility] Start: 11-03-2024 End: 11-03-2024 Patient encounter procedure 11/03/2024 1:15 PM EDT Office Visit [facility] [address] [place] [address] Dewey Herrera, [address] [place] [place] [address] [facility] Start: 09-14-2024 End: 09-14-2024 ambulatory 09/14/2024 1:00 PM EST Treatment [facility] [address] [facility] [address] [place] [address] Kenny Ferraro PTA [facility] Start: 09-09-2024 End: 09-09-2024 Admission to same day surgery center 09/09/2024 1:00 PM EST Evaluation [facility] [address] [place] [address] Myron Oh, PT [address] [place] [place] [address] Status post hip surgery [facility] Comment on above: Status post hip surg park Start: 09-09-2024 End: 09-09-2024 ambulatory 09/09/2024 1:00 PM EST Evaluation [facility] [address] [place] [address] Afshin Ohemmiles Romero, PT [address] [place] [address] [facility] Start: 09-01-2024 End: 09-01-2024 Patient encounter procedure 09/01/2024 1:30 PM EST Office Visit [facility] [address] [place] [phone] Dewey Herrera DO [address] [place] [address] [facility] Payers Date Payer Category Payer Private Health Insurance [place] [id number] 2008 Medicare MEDICARE .[id number] 1959 Medicare [id number] 1959 Unknown [id number] 1941 Unknown [id number] [id number] .593 1941 Unknown [id number] 2.16.840.1.085364.3.579.2 .593 1941 Unknown [id number] 2.16.840.1.449551.3.579.2 .593 1941 Unknown [id number] 2.16.840.1.176203.3.579.2 .727 1941 Unknown [id number] 2.16.840.1.345943.3.579.2 .727 1941 Unknown [id number] 2.16.840.1.973840.3.579.2 .1259 1941 Unknown [id number] 2.16.840.1.948767.3.579.2 .1259 1941 Unknown [id number] 2.16.840.1.211673.3.579.2 .1259 1941 Unknown [id number] 2.16.840.1.043190.3.579.2 .1259 1941 Unknown [id number] 2.16.840.1.213115.3.579.2 .1259 1941 Unknown [id number] 2.16.840.1.084451.3.579.2 .1259 1941 Unknown [id number] [id number] .1259 Social History Date Type Detail Facility Start: 07-16-2024 Tobacco smoking stat [facility] Tobacco smoking consumption unknown [facility] Healthcare Start: 1940 Sex assigned at Not on file N [facility] [place] [facility] Gender identity Not on file [facility] Tobacco [facility] Comment on above: denies Tobacco smoking status No Smokin g Status Entered [facility] Start: 07-16-2024 End: 11-03-2024 Alcoholic beverage intake Ex-drinker (finding) [facility] [...] Assessment Result Facility 06-16-2024 Functional Status N/A [facility] 06-16-2024 Functional Status [facility] Clinical Notes 11-08-2022 to 11-03-2024 Dewey Isabel DO Javier - 11/03/2024 1:15 PM EDTPauliewillem HerreraDO - 09/01/2024 1:30 PM Davidwillem Hall DO Javier - 07/16/2024 1:15 PM EST Note Date & Type Note Facility 11-03-2024 History of Present illness Narrative Images from the original note were not included. @[facility]@ Dee Rakesh Ole is a 84 y.o. female who presents for Follow-up of the Right Hip (IMN 06/17/24) HPI: History of Present Illness The patient is an 86-year-old female who presents for evaluation of right hip pain, approximately 5 months status post intramedullary nailing of the right hip, with the surgery performed on 06/17/2024. She reports intermittent discomfort in her lateral right hip, describing it as a sensation sampson to being pricked. She has been anticipating this visit to review the x-ray results and determine the necessity of any screw adjustments. Despite the discomfort, she has been able to ambulate independently. She plans to engage in horse riding activities during the summer and expresses concern about potential falls and injuries. SUBJECTIVE: MEDICATIONS: Current Outpatient Medications Medication Instructions [...] Date INTERTROCHANTERIC HIP FRACTURE SURGERY Right 06/17/2024 JASMEET FAMILY HISTORY: Family History Family history unknown: Yes SOCIAL HISTORY: Social History Tobacco Use Smoking status: Unknown Substance Use Topics Alcohol use: Not Currently Drug use: Defer Depression: Not on file REVIEW OF SYMPTOMS: Review of Systems The review of systems, history and current medications list are all reviewed today. OBJECTIVE: Visit Vitals Ht 5' 4 Wt 130 lb BMI 22.31 kg/m Smoking Status Unknown BSA 1.63 m Physical Exam Alert and oriented, no acute distress. Mood and affect are appropriate. The patient is ambulating independently with a stable gait. Right hip incisions are all benign and well healed. There is no swelling or erythema. There is no palpable prominence of the lag screw, but there is some tenderness over her middle incision. Range of motion of the hip is smooth, flexion, abduction, adduction strength is 5 out of 5. Knee flexion and extension strength is 5 out of 5. There is no effusion to the knee. Ortho Exam Results Imaging AP pelvis, lateral right hip(s) taken today and saved to the permanent medical record. X-rays show healed intertrochanteric fracture. The hardware is intact. There is no avascular changes to the femoral head. ASSESSMENT AND PLAN: I reviewed the history, physical exam, diagnostic studies, and diagnosis with the patient. Assessment & Plan 1. Status post intramedullary nailing of the right hip. Her discomfort is likely attributable to scar tissue rather than the screw itself. The fracture has healed completely. She was advised to gently massage the area using a rolling pin, initially for a minute and gradually increasing the duration over time. This should help desensitize the area. A massage roller was ordered from [employer] for her use. Follow-up The patient will follow up in May 2025 with xrays. A total of 20 to 29 minutes was spent on this patient encounter which included chart review, check in, nurse triage, history taking, physical examination, diagnostic study review, patient counseling and discussion, entering information into the patient's medical record, and coordinating patient care. Diagnoses and all orders for this visit: Status post hip surgery - XR hip right 2 or 3 views Dewey Herrera D.O. Attestation This note was created using voice recognition through [employer]. documented in this encounter [facility] 09-01-2024 History of Present illness Narrative Images from the original note were not included. @[email or web address]@ Dee Rakesh Ole is a 83 y.o. 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 Approximately one week ago, she began experiencing a sensation sampson to sitting on a cactus plant, specifically in the region of her ischial tuberosity. This discomfort is accompanied by a wtly-lrm-nncujto sensation, which is exacerbated when seated. She [...] Date INTERTROCHANTERIC HIP FRACTURE SURGERY Right 06/17/2024 JAMargareth REVIEW OF SYMPTOMS: The review of systems, [...] 2. Sciatic nerve irritation. She reports a unlb-ugk-qjzmtby sensation in her buttock when sitting, likely [...] note was created using voice recognition through [employer]. documented in this encounter [facility] 07-16-2024 History of Present illness Narrative Images from the original note were not included. @[email or web address]@ Dee Rakesh Ole is a 83 y.o. [...] note was created using voice recognition through [employer]. documented in this encounter [facility] 06-22-2024 Note Progress Note-Physic fadi Patient: DEE HANDY Age: 83 years Sex: Female : 1940 Associated Diagnoses: None Author: MD Yang, Santiago Chaidez Postoperative Information Postoperative disposition: Postoperative disposition: To PACU. Optimetrix number: Optimetrix number [id number]. Anesthetic utilized: General. Health Status Allergies: Allergic [...] when meets criteria ( To home ). [facility] Comment on above: Result Comment: Elec tronically Signed By: MD Al Ahmad F\.br\Date and Time Signed: 06/22/24 06:35 EDT 06-22-2024 Note Progress Note-Physic fadi Patient: DEE HANDY Age: 83 years Sex: Female : 1940 Associated Diagnoses: None Author: MD Yang, Santiago Chaidez Preoperative Information Time patient last ate or [...] At risk for falls / SNOMED CT [id number] / Possible Problem added when Risk for Falls Careplan was initiated. Histories Past Medical History: No active or resolved past medical history items have been selected or recorded. Family History: No family history items have been selected or recorded. Procedure history: Open reduction and internal fixation of fracture HIP ([id number]) on 06/18/2024 at 83 Years. Social History Social & Psychosocial Habits Alcohol Comment: denies - 06/16/2024 19:00 Devon Hassan RN 06/17/2024 Risk Assessment: Denies Alcohol Use Substance Abuse 06/17/2024 Risk Assessment: Denies Substance Abuse Comment: dorothy - 06/16/2024 19:00 - Devon Contreras RN Tobacco 06/17/2024 Risk Assessment: Denies Tobacco Use Comment: denies - 06/16/2024 19:00 - Ben ONEAL, Devon Kaufman . Physical Examination Please see preop flow sheet Airway: Mallampati classification: II (soft palate, fauces, uvula visible). Respiratory: Lungs are clear to auscultation. Cardiovascular: Normal rate, Regular rhythm. Neurologic: Alert. Review / Management Results review Interpretation of Outside Results Chest x-ray results Radiology results ECG interpretation Condition Plan [place] [employer] of Anesthesiologists (ASA) physical status classification: Class III. Anesthetic Preoperative Plan Anesthesia: General. . Anesthetic plan, risks, benefits, and alternatives discussed with the patient and/or family. Risks discussed: nausea, vomiting, headache, sore throat, dental injury, serious complications. Patient verbalized understanding. Communication: face to face with patient 5 minutes. [facility] Comment on above: Result Comment: Elec [...] and pain was controlled. PT OT recommended fpc facility. Once patient was accepted patient was discharged for further rehab. Physical Exam Please see daily progress note. Tests Performed CT C-Spine w/o Contrast CT Head or Brain w/o Contrast XR Chest Single View XR Hip 2-3 Views Right XR Hip 2-3 Views Right + Pelvis Discharge Plan Discharge Disposition Discharge To, Anticipated II - [facility] Unit Discharged to - long term unit Discharge Medication List Prescriptions aspirin 81 [...] Daily Follow-up With When Contact Information Dewey Javier Within 4 weeks [address] [place], [place] [address] (1) Additional Instructions: Call for followup appointment Patient Education Fall Prevention in the Home, Adult, Tegh-qx-Mrid [facility] Comment on above: Result Comment: Elec tronically Signed By: Ashutosh RUSS, Alejandro Chino\.br\Date and Time Signed: 06/21/24 11:50 EDT 06-19-2024 Hospital Discharge instructions Patient Education 06/19/2024 13:36:44 Fall Prevention in the Home, Adult, Kqwa-dl-Ymju Fall Prevention in the Home, Adult Falls [...] Keep items that you use often in sack-fo-japcr places. Lower the shelves around your home [...] of the way. Do not use floor kinyarwanda or wax that makes floors slippery. What [...] more information Centers for Disease Control and PreventionDORA: cdc.gov National Watson on Aging: cristopher.nih.gov National Watson on Aging: cristopher.nih.gov Contact a doctor if: [...] provider. Document Revised: 04/15/2023 Document Reviewed: 04/15/2023 [employer] Patient Education 2023 [employer]. Follow Up Care 06/16/2024 18:48:39 With:Dewey Herrera Address: [address] [place] [address]- Business (1) When:4 weeks Comments:Call for followup appointment [facility] 06-19-2024 Evaluation + Plan note Extrac harshil from: Title:APSO Note Author:Alejandro Boykin MD Date:1 1. Hip fracture, right (S72. 001A: Fracture [...] Ordered: Sbsq Hospital Care/Day Moderate 35 Minutes 35382 2. Accidental fall (W19.XXXA: Unspecified fall, initial encounter) PT/OT Recommending SNF Ordered: Sbsq Hospital Care/Day Moderate 35 Minutes 34594 3. History of CVA in adulthood (Z86.73: Personal history of transient ischemic attack (TIA), and cerebral infarction without residual deficits) No new issues Ordered: Sbsq Hospital Care/Day Moderate 35 Minutes 42899 4. Hypokalemia (E87.6: Hypokalemia) Resolved Ordered: Sbsq Hospital Care/Day Moderate 35 Minutes 67169 5. Osteoarthritis (M19.90: Unspecified osteoarthritis, unspecified site) As above. Ordered: Sbsq Hospital Care/Day Moderate 35 Minutes 31477 Extracted from: Title:APSO Note Author:Vickie Mckoy CNP [...] XR Hip 2-3 Views Right + Pelvis [facility] 10-25-2024 NoteProgress Note-Physician Assessment/Plan 1. Hip [...] controlled. No issues at this time. Ordered: [facility] Hospital Care/Day Moderate 35 Minutes 22123 2. Accidental fall (W19.XXXA: Unspecified fall, initial encounter) PT/OT Recommending SNF Ordered: [facility] Hospital Care/Day Moderate 35 Minutes 15190 3. History of CVA in adulthood (Z86.73: Personal history of transient ischemic attack (TIA), and cerebral infarction without residual deficits) No new issues Ordered: [facility] Hospital Care/Day Moderate 35 Minutes 48887 4. Hypokalemia (E87.6: Hypokalemia) Resolved Ordered: [facility] Hospital Care/Day Moderate 35 Minutes 28265 5. Osteoarthritis (M19.90: Unspecified osteoarthritis, unspecified site) As above. Ordered: [facility] Hospital Care/Day Moderate 35 Minutes 40755 Subjective Patient seen and examined at bedside. [...] 04:59:00) Lymph Auto: 20.1 % (06/19/24 04:59:00) [place] Auto: 9.7 % (06/19/24 04:59:00) Eos Auto: 3 % (06/19/24 04:59:00) Basophil Auto: 0.9 % (06/19/24 04:59:00) Neutro Absolute: 6 E9/L (06/19/24 04:59:00) Lymph Absolute: 1.8 E9/L (06/19/24 04:59:00) [place] Absolute: 0.9 E9/L (06/19/24 04:59:00) Eos Absolute: [...] 500 mg Tab, 500 (more content not included)...[facility]Result Comment: Electronically Signed By: Ashutosh RUSS, Alejandro Chino\.br\Date and Time Signed: 06/19/24 10:04 [id number] NoteProgress Note-Physician PATIENT UPDATE Patient admitted this morning- see Dr Naeem Walters Seen by ortho with plans for OR later today. Pre op orders in. Patient reports pain to be controlled. Offers no complaints/concerns. Afebrile, on RA, VSS and labswith normalized K+ levels. Labs for am ordered.[facility]:Result Comment: Electronically Signed By: Maricel Mckoy CNP\.br\Date and Time Signed: 06/17/24 10:57 EDT\.br\Electronically Co-Signed By: Chapo RUSS, Liang Chino\.br\Date and Time Co-Signed: 06/18/24 16:02 [id number] NoteProgress Note-Physician Basic Information 83 year old [...] MM (06/17/24 16:31:01) Size: 11 MM (06/17/24 16:31:) WBC: 10.4 E9/L (06/18/24 05:30:00) RBC: 4 [...] Lymph Auto: 11.7 % Low (06/18/24 05:30:00) [place] Auto: 7.6 % (06/18/24 05:30:00) Eos Auto: 0 % (06/18/24 05:30:00) Basophil Auto: 0.2 % (06/18/24 05:30:00) Neutro Absolute: 8.4 E9/L High (06/18/24 05:30:00) Lymph Absolute: 1.2 E9/L (06/18/24 05:30:00) [place] Absolute: 0.8 E9/L (06/18/24 05:30:00) Eos Absolute: [...] (06/17/24 16:35:00) UA Glu (more content not included)...[facility]Result Comment: Electronically Signed By: Maricel Mckoy CNP\.br\Date and Time Signed: 06/18/24 14:06 EDT\.br\Electronically Co-Signed By: Kashmir BAXTER MD\.br\Date and Time Co-Signed: 06/18/24 14:44 [id number] NoteProgress Note-Physician Patient: DEE HANDY Age: 83 [...] 99 mmHg Diastolic Blood Pressure 58 mmHg [facility] Result Comment: Electronically Signed By: Dewey Herrera DO\.br\Date and Time Signed: 06/18/24 13:11 [id number] NotePROCEDURE: XR HIPS LB 5V W PELVIS [...] Electronically authenticated by: SAGE LOPEZ Date: 2022-11-08 12:19[facility] Diagnosis Status post hip surgery- Primary documented in this encounter [facility]* Diagnosis Status post hip surgery- Primary documented in this encounter [facility]* Diagnosis Weakness of right hip- Primary Status post hip surgery documented in this encounter [facility] Healthcare[facility]* Diagnosis Status post hip surgery- Primary documented in this encounter [facility] HealthcareHospital course Narrative No data available for this section [facility] Progress note No data available for this section [facility] Reason for visit Narrative* Consultation (Routine) - Closed Specialty Diagnoses / Procedures Referred By Yoselyn romero Referred To Contact Physical Therapy Diagnoses Status post hip surgery Procedures [place] OFFICE/OUTPATIENT NEW HIGH MDM 60 MINUTES Dewey Herrera, DO [address] [place] [address] Phone: tel: fax: Myron Oh, PT [address] [facility] [address] [place] [address] Phone: tel: fax: Referral ID Status Reason Start Date Expiration Date V isits Requested Visits Authorized [id number] Closed Consult and Treat 09/01/2024 02/28/2025 10 10 [facility] Summary Purpose Family History No Family [...] content) DATE CREATED AUTHOR 11/27/2022 [facility] DATE CREATED AUTHOR AUTHOR'S ORGANIZ ATION 06/19/2024 [facility] DATE CREATED AUTHOR AUTHOR'S ORGANIZ ATION 06/20/2024 [facility] DATE CREATED AUTHOR AUTHOR'S ORGANIZ ATION 06/24/2024 [facility] DATE CREATED AUTHOR AUTHOR'S ORGANIZ ATION 11/05/2024 [facility] Reason for Visit (unrecogniz ed section and content) Reason Comments Post-op IMN 06/17/24 Pain IMN 06/17/24 Reason Comments Post-op IMN 06/17/24 Reason Comments Follow-up IMN 06/17/24 Care Teams (unrecognized sec tion and content) [employer] Judge Relationship Specialty Start Date End Date Maryam Valerio MD [address] [place] [address] PCP - General Family Medicine 11/03/24 FOR RECORDS PERTAINING TO PATIENTS WHO ARE [...] BE BASED ON THE PRIMARY CLINICAL RECORDS. [facility] [facility]. provides no warranty or guarantee of the accuracy or completeness of information in this document.
--- NOTE | 2024-12-07 11:49 | ED_ITS ---
HPI HPI - General Adult General Chief complaint: Extremity Problem, Nontraumatic Stated complaint: POSSIBLE PALPITATIONS Time Seen by Provider: 12/07/24 11:30 Source: patient Mode of arrival: walk-in Limitations: no limitations History of Present Illness HPI narrative: This 84-year-old female presents to the ED stating that she feels her heart beating forcefully in her chest since this morning and sometimes she has a sensation of an irregular heartbeat. She has had some tingling in the left arm and distal lower leg off-and-on today. She had a stroke 10 years ago affecting the left side of her body but she states that she has regained normal strength. She had a fracture of the proximal right femur 4 months ago resulting in open reduction and internal fixation. She is on no medication. Related Data Previous Rx's ?Medication ?Instructions ?Recorded doxycycline hyclate 100 mg capsule 100 mg PO BID 10 days #20 caps 12/07/24 Allergies Allergy/AdvReac Type Severity Reaction Status Date / Time caffeine AdvReac Mild Palpitation Verified 05/22/24 07:30 s Opioid HPI Opioid Management Most Recent Opioid Data: Last Pain Scale 5 05/22/24 09:18 05/22/24 Last Pain Intensity 5 05/21/24 10:48 05/21/24 Last ORT Total Score 0 05/20/24 15:47 05/20/24 Last ORT Risk Category Low Risk 05/20/24 15:47 05/20/24 Review of Systems ROS Status of ROS 10 or more systems reviewed and unremark able except as noted in history and below [facility] Medical History Acute thoracic back pain ?M54.6 - Pain in thoracic spine (ICD-10) Left lower lobe pneumonia ?J18.9 - Pneumonia, unspecified organism (ICD-10) Myalgia ?M79.10 - Myalgia, unspecified site (ICD-10) Hip pain, bilateral (08/23/22) ?M25.551 - Pain in right hip (ICD-10) ?M25.552 - Pain in left hip (ICD-10) Low back pain (11/19/22) ?M54.50 - Low back pain, unspecified (ICD-10) Breast cancer (08/23/22) ?C50.919 - Malignant neoplasm of unspecified site of unspecified female breast (ICD-10) Personal history of transient ischemic attack (TIA), and cerebral infarction without residual deficits (08/23/22) ?Z86.73 - Personal history of transient ischemic attack (TIA), and cerebral infarction without residual deficits (ICD-10) Congestive heart failure ?I50.9 - Heart failure, unspecified (ICD-10) Chest pain ?R07.9 - Chest pain, unspecified (ICD-10) Urinary tract infection ?N39.0 - Urinary tract infection, site not specified (ICD-10) Stroke ?I63.9 - Cerebral infarction, unspecified (ICD-10) Breast cancer ?C50.919 - Malignant neoplasm of unspecified site of unspecified female breast (ICD-10) Body aches ?R52 - Pain, unspecified (ICD-10) Family History Father Family history of CHF (congestive heart failure) Family history of myocardial infarction Social History Within the past year, how often did you have a drink containing alcohol: monthly or less Within the past year, how many standard drinks containing alcohol did you have on a typical day: 1 or 2 Within the past year, how often did you have six or more drinks on one occasion: never Total score: 0 Score interpretation: A score less than 3 is consistent with normal alcohol consumption. Smoking status: Never smoker Non-prescribed substance use: denies use Highest level of school completed/degree received: 8th grade Are you now , , , , never or living with a partner: In a typical week, how many times do you talk on the telephone with family, friends, or neighbors: 3 or more times per week How often do you get together with friends or relatives: 3 or more times per week How often do you attend taoist or rastafarian services: 4 or more times per year Do you belong to any clubs or organizations such as taoist groups unions, fraternal or athletic groups, or school groups: yes Total score: 3 Score interpretation: A score of greater than or equal to 2 indicates the lowest level of social isolation. Little interest or pleasure in doing things: not at all Feeling down, depressed, or hopeless: not at all Feel stressed/tense/nervous/anxious/difficulty sleeping: not at all Exam Narrative Exam Narrative: Patient is nondistressed and does not appear acutely ill. Vital signs are stable and are as documented. Oxygen saturation tends to run in the low 90s but she is not dyspneic or in any respiratory distress. HEENT exam is normal to inspection. Neck is supple. Lung sounds are clear to auscultation bilaterally. Heart has regular rate and rhythm. Abdomen is soft nontender. There is no facial asymmetry. She moves all extremities actively. Speech and mentation are clear and intact. Constitutional Vital Signs, click to edit/add: Last Vital Signs Temp 98.2 F 12/07/24 11:34 Pulse 90 12/07/24 13:10 Resp 20 12/07/24 13:10 BP 130/81 12/07/24 13:00 Pulse Ox 91 L 12/07/24 13:10 O2 Del Method Room Air 12/07/24 11:34 Course Vital Signs Vital signs: Vital Signs Temperature 98.2 F 12/07/24 11:34 Pulse Rate 78 12/07/24 11:34 Respiratory Rate 18 12/07/24 11:34 Blood Pressure 146/94 H 12/07/24 11:34 Pulse Oximetry 96 12/07/24 11:34 Oxygen Delivery Method Room Air 12/07/24 11:34 Temperature 98.2 F 12/07/24 11:34 Pulse Rate 90 12/07/24 13:10 Respiratory Rate 20 12/07/24 13:10 Blood Pressure 130/81 12/07/24 13:00 Pulse Oximetry 91 L 12/07/24 13:10 Oxygen Delivery Method Room Air 12/07/24 11:34 Medical Decision Making [facility] Narrative Medical decision making narrative: The twelve-lead EKG is interpreted by me and shows sinus rhythm with a rate of 78 beats a minute. There is left axis deviation. No acute ischemic changes are noted. There is incomplete right bundle branch block pattern. She has LVH by voltage criteria. Dimer was elevated and CT angiogram of the chest was obtained which is negative for aortic aneurysm or dissection and there is no evidence of pulmonary embolism there is some cardiomegaly but no pericardial effusion. She has bilateral interstitial infiltrates which could be inflammatory or infectious. I do not feel that she has congestive heart failure since her lungs are clear to auscultation and her BNP is normal. Based on lung imaging I suspect she may have early lung infection and is placed on doxycycline. She is referred to her PCP for follow-up in a week and may return anytime for worsening symptoms. Lab Data Labs: Lab Results 12/07/24 Range/Units 12:19 WBC 8.4 (4.0-11.0) 10^3/uL RBC 4.71 (4.20-5.40) 10^6/uL Hgb 13.8 (12.0-16.0) g/dL Hct 43.1 (36.0-48.0) % MCV 91.5 (81.0-99.0) fL MCH 29.3 (26.7-34.0) pg MCHC 32.0 (29.9-35.2) g/dL RDW 15.8 H (11.0-15.0) % Plt Count 390 (150-450) 10^3/uL MPV 9.3 L (9.5-13.5) fL Neut % (Auto) 58.5 (43.0-75.0) % Lymph % (Auto) 32.1 (20.5-60.0) % [place] % (Auto) 6.3 (1.7-12.0) % Eos % (Auto) 1.0 (0.9-7.0) % Baso % (Auto) 1.1 (0.2-2.0) % Neut # (Auto) 4.9 (1.4-6.5) 10^3/uL Lymph # (Auto) 2.7 (1.2-3.8) 10^3/uL [place] # (Auto) 0.5 (0.3-0.8) 10^3/uL Eos # (Auto) 0.1 (0.0-0.7) 10^3/uL Baso # (Auto) 0.1 (0.0-0.1) 10^3/uL Abs Immat Gran (auto) 0.08 H (0.00-0.03) 10^3/uL Imm/Tot Granulo (auto) 1.0 H (0.0-0.5) % D-Dimer 1.78 H* (<=0.59) mg/L FEU Sodium 144 (136-145) mmol/L Potassium 3.8 (3.5-5.1) mmol/L Chloride 106 (98-107) mmol/L Carbon Dioxide 31.8 (21.0-32.0) mmol/L Anion Gap 10.0 BUN 18.0 (7.0-18.0) mg/dL Creatinine 0.81 (0.55-1.02) mg/dL Est GFR ( Amer) >60 (>=60 mL/min/1.73m^2) Est GFR (Non-Af Amer) >60 (>=60 mL/min/1.73m^2) BUN/Creatinine Ratio 22.2 Glucose 120 H (74-106) mg/dL Calcium 8.9 (8.5-10.1) mg/dL Magnesium 2.1 (1.8-2.4) mg/dL Total Bilirubin 0.3 (0.2-1.0) mg/dL AST 15 (15-37) U/L ALT 21 (14-59) U/L Alkaline Phosphatase 105 (46-116) U/L Troponin I High Sens 8.4 (4.0-51.3) pg/mL NT-Pro-B Natriuret Pep 480.0 (<=1800.0) pg/mL Total Protein 6.5 (6.4-8.2) g/dL Albumin 3.5 (3.4-5.0) g/dL Globulin 3.0 g/dL Albumin/Globulin Ratio 1.2 Free T4 0.99 (0.76-1.46) ng/dL TSH & Free T4 Interp 3.940 H (0.358-3.740) uIU/mL Discharge Plan Discharge Chief Complaint: Extremity Problem, Nontraumatic Clinical Impression: Atypical pneumonia Patient Disposition: Home, Self-Care Time of Disposition Decision: 14:00 Condition: Good Mode of Transportation: Private Vehicle Prescriptions / Home Meds: New doxycycline hyclate 100 mg capsule 100 mg PO BID 10 Days Qty: 20 0RF Print Language: Upper Sorbian Instructions: Community Acquired Pneumonia (ED) Additional Instructions: Antibiotics as prescribed. Follow-up with your PCP as scheduled. Return for worsening symptoms. Referrals: Barry Valerio MD [Primary Care Provider] - 1 week Discharge Date/Time: 12/07/24 14:17
--- NOTE | 2024-12-07 11:50 | ECG_ITS ---
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 Measurements Intervals [place] Rate: 78 P: 30 TN: 142 QRS: -22 QRSD: 92 T: 38 QT: 392 QTc: 426 Interpretive Statements 1100 Sinus rhythm 2440 Incomplete right bundle branch block 5222 Moderate voltage criteria for LVH, may be normal variant 7202 Moderate left axis deviation 9130 borderline ECG Compared to ECG 05/21/2024 10:59:02 Incomplete right bundle-branch block now present Electronically Signed On 12-07-2024 20:27:24 EDT by MICHOACANO DALE M.D.
[2024-12-07 12:26] LABS: Basophils Absolute Auto 0.1 10^3/uL (0.0-0.1); Basophils Percent Auto 1.1 % (0.2-2.0); Eosinophils Absolute Auto 0.1 10^3/uL (0.0-0.7); Hematocrit 43.1 % (36.0-48.0); Hemoglobin 13.8 g/dL (12.0-16.0); Immature Granulocytes Abs Auto 0.08 10^3/uL (0.00-0.03); Lymphocytes Absolute Auto 2.7 10^3/uL (1.2-3.8); Lymphocytes Percent Auto 32.1 % (20.5-60.0); Mean Corpuscular Hemoglobin 29.3 pg (26.7-34.0); Mean Corpuscular Volume 91.5 fL (81.0-99.0); Mean Platelet Volume 9.3 fL (9.5-13.5); Monocytes Absolute Auto 0.5 10^3/uL (0.3-0.8); Monocytes Percent Auto 6.3 % (1.7-12.0); Neutrophils Absolute Auto 4.9 10^3/uL (1.4-6.5); Neutrophils Percent Auto 58.5 % (43.0-75.0); Platelet Count 390 10^3/uL (150-450); Red Blood Count 4.71 10^6/uL (4.20-5.40); Red Cell Distribution Width 15.8 % (11.0-15.0); White Blood Count 8.4 10^3/uL (4.0-11.0)
[2024-12-07] MEDS: 0.9 % SODIUM CHLORIDE 1,000 ML 125 ML IV (12:30)
[2024-12-07 12:44] LABS: D Dimer 1.78 mg/L FEU (<=0.59)
[2024-12-07 12:53] LABS: Alanine Aminotransferase 21 U/L (14-59); Albumin Globulin Ratio 1.2; Albumin Level 3.5 g/dL (3.4-5.0); Alkaline Phosphatase 105 U/L (46-116); Aspartate Amino Transferase 15 U/L (15-37); BUN Creatinine Ratio 22.2; Bilirubin Total 0.3 mg/dL (0.2-1.0); Calcium 8.9 mg/dL (8.5-10.1); Carbon Dioxide 31.8 mmol/L (21.0-32.0); Chloride 106 mmol/L (98-107); Estimated GFR (African America >60 (>=60 mL/min/1.73m^2); Estimated GFR (Non-African Ame >60 (>=60 mL/min/1.73m^2); Glucose 120 mg/dL (74-106); Potassium 3.8 mmol/L (3.5-5.1); Sodium 144 mmol/L (136-145); Total Protein 6.5 g/dL (6.4-8.2)
[2024-12-07 13:00] LABS: Magnesium 2.1 mg/dL (1.8-2.4); Troponin I High Sensitivity 8.4 pg/mL (4.0-51.3)
[2024-12-07 13:24] LABS: Free T4 0.99 ng/dL (0.76-1.46)
== END 2024-12-07 14:17 | disposition home or self-care (01) ==
PROVIDERS: Emergency Provider Emergency Medicine; PCP Family Medicine
DX: J18.9 Pneumonia, unspecified organism (principal); Z86.73 Personal history of transient ischemic attack (TIA), and cerebral infarction without residual deficits; S72.91XD Unspecified fracture of right femur, subsequent encounter for closed fracture with routine healing; R79.89 Other specified abnormal findings of blood chemistry; I50.9 Heart failure, unspecified
CPT/HCPCS: 36415; 71275; 80053; 83735; 83880; 84439; 84443; 84484; 85025; 85378; 93005; 99285; Q9967